=== PATIENT | female | born 1955 | race Caucasian/White ===

== ENCOUNTER 2017-07-01 10:00 | Day surgery (SDC) | payer BC, MEDICARE, OTHER ==
[~2017-07-01] VITALS: Ht 167.6 cm; Wt 97.0 kg
[2017-07-01 16:35] VITALS: BP 138/64; PULSE 104; RESP 15
[2017-07-01] MEDS ORDERED: PROPOFOL 20 ML ONE (16:54)
--- NOTE | 2017-07-01 17:15 | OPPN ---
Date/Time of Note Date/Time of Note DATE: 07/01/17 TIME: 17:11 Operative Report Preoperative Diagnosis GI bleeding and severe anemia Postoperative Diagnosis GI bleeding Severe anemia Melanotic stool Operation/Procedure Performed EGD with the biopsy Also small bowel biopsy 1. Gastritis 2. Rule out celiac sprue 3. AVM 1 in the second part of duodenum no evidence of bleeding Provider: SLIM SUTTON MD Anesthesia Type: MAC Transfusion Required: no Specimens Patient had a stomach biopsy for H. pylori infection Also had small bowel biopsy for celiac sprue Grafts/Implants: none Complications: no SLIM SUTTON MD Jul 01, 2017 17:15
[2017-07-01 17:36] VITALS: BP 147/65; PULSE 103; RESP 12
--- NOTE | 2017-07-01 22:53 | GILP ---
DATE OF PROCEDURE: 07/01/2017 PROCEDURE PERFORMED: Esophagogastroduodenoscopy with biopsy. INDICATION: A 62-year-old female undergoing this procedure for severe anemia, requiring blood transfusion. As per the daughter, she got almost 10 units of blood between . Patient also had a black-colored stool. The purpose is to evaluate the upper GI tract and find out the source of GI blood loss. The risk of the procedure, related complications, anesthetic risks, alternatives thoroughly discussed with the daughter, Maria Ines, and informed consent was obtained. DESCRIPTION OF PROCEDURE: Patient was brought to the GI lab, sedated by the anesthesiologist. After optimal sedation, scope was passed with much ease into the esophagus, which was grossly within normal limits. Z-line was at 37 cm. Stomach mucosa revealed gastritis. Random 3 biopsies obtained to rule out H. pylori infection. In the duodenum near the 2nd part there was an AVM identified. Ampulla was normal. No active bleeding or altered blood was seen. Scalloping of the mucosa was observed, so biopsy taken from the 2nd part and the bulb to rule out celiac sprue. Retroversion done in the stomach. No tumor was identified. Scope was straightened out and removed, with good patient tolerance. IMPRESSION: 1. Normal esophagus. 2. No varicose vein identified. 3. Normal Z-line at 37 cm. 4. Gastritis. Biopsy taken to rule out Helicobacter pylori infection. 5. 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 6. Biopsy taken from the duodenum to rule out celiac sprue. PLAN: Monitor H and H. Transfuse on a need basis. Refrain from any kind of blood thinner. If the bleeding is persistent, then definitely would need a colonoscopy. Patient may have AV malformation, either in the colon or in the small intestine. These findings were discussed with the daughter, Maria Ines. Dictated By: Ramón Ng MD /lorene/lu /Document#: [id number] CC: Ramón Ng MD;*[facility]*
== END 2017-07-01 18:53 | disposition home or self-care (01) ==
LOC: GIL 10:00
PROVIDERS: ATTEND Internal Medicine Gastroenterology
DX: K92.2 Gastrointestinal hemorrhage, unspecified (principal); K29.70 Gastritis, unspecified, without bleeding; I10 Essential (primary) hypertension; I25.10 Atherosclerotic heart disease of native coronary artery without angina pectoris; D64.9 Anemia, unspecified
CPT/HCPCS: 88305; 88312

== ENCOUNTER 2017-07-28 14:34 | Inpatient (IN) | payer MEDICARE, BC ==
[~2017-07-28] VITALS: Ht 152.4 cm; Wt 77.9 kg
[2017-07-28 14:36] VITALS: Ht 152.4 cm; Wt 77.9 kg
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
--- NOTE | 2017-07-28 15:43 | RADRPT ---
PROCEDURE: Chest x-ray CLINICAL INDICATION: Upper GI bleed TECHNIQUE: Chest single view COMPARISON: 06/11/2017 FINDINGS: Tracheostomy tube remains in good position. The heart is normal in size. There is interval clearing of previously noted right lower lobe pneumonia. Chronic underlying interstitial changes are seen. No new infiltrates are identified. Costophrenic angles sharp. Bones are osteopenic. IMPRESSION: 1. Tracheostomy tube remains in good position. 2. Interval clearing of right lower lung consolidation. 3. Chronic underlying interstitial lung changes. 4. No new infiltrates identified RPTAT: HH .Nathan Schrader MD, Date Time Electronically viewed and signed by .Nathan Schrader MD, on 07/28/2017 15:42 .W/
[2017-07-28 16:17] LABS: HEMATOCRIT 22.4 % (37.0-47.0); HEMOGLOBIN 7.3 g/dl (12.0-16.0); MEAN CORPUSCULAR VOLUME 88.9 fl (82.0-101.0); RED BLOOD COUNT 2.52 10^6/ul (4.20-5.40); WHITE BLOOD COUNT 10.1 10^3/ul (4.8-10.8)
[2017-07-28 16:18] LABS: BASOPHILS % 0.3 % (0.0-2.0); EOSINOPHILS # 0.4 10^3/ul (0.0-0.5); EOSINOPHILS % 3.8 % (0.0-7.0); LYMPHOCYTES # 1.3 10^3/ul (0.8-2.9); LYMPHOCYTES % 12.9 % (15.0-51.0); MEAN CORPUSCULAR HGB CONC 32.6 g/dl (32.0-37.0); MEAN PLATELET VOLUME 11.1 fl (7.4-10.4); MONOCYTES % 10.3 % (0.0-11.0); NEUTROPHIL # 7.1 10^3/ul (1.6-7.5); NEUTROPHILS % 70.7 % (39.0-77.0); PLATELET COUNT 286 10^3/UL (140-415); RED CELL DISTRIBUTION WIDTH 14.7 % (11.5-14.5)
[2017-07-28 16:32] LABS: INR 1.02; PROTIME 13.4 Sec (12.2-14.2)
[2017-07-28 16:37] LABS: ALBUMIN 3.8 g/dl (3.3-4.9); ALBUMIN/GLOBULIN RATIO 1.02; BILIRUBIN,INDIRECT 0.2 mg/dl (0-1.1); BILIRUBIN,TOTAL 0.2 mg/dl (0.2-1.3); CALCIUM 9.2 mg/dl (8.4-10.2); CREATININE 1.21 mg/dl (0.44-1.00); POTASSIUM 4.8 mmol/L (3.5-5.1); TOTAL PROTEIN 7.5 g/dl (6.1-8.1)
[2017-07-28] MEDS ORDERED: AMIO200T2 GTB (16:50)
[2017-07-28] MEDS ORDERED: ATOR20TA38 GTB (16:50)
[2017-07-28] MEDS ORDERED: CALC667C GTB (16:51)
[2017-07-28] MEDS ORDERED: HYDR2TAB36 GTB ×2 (16:53→16:54)
[2017-07-28] MEDS ORDERED: IPRA3AMP INHALATION (16:56)
[2017-07-28] MEDS ORDERED: L.AC460C GTB (16:57)
[2017-07-28] MEDS ORDERED: HYDR-3672 PO (16:59)
[2017-07-28] MEDS ORDERED: LOPE2CAP GTB (17:00)
[2017-07-28] MEDS ORDERED: FURO40TA4 GTB (17:01)
[2017-07-28] MEDS ORDERED: INSU100I27 SQ (17:01)
[2017-07-28] MEDS ORDERED: LYR75 GTB (17:02)
[2017-07-28] MEDS ORDERED: MULT-105 GTB (17:03)
[2017-07-28] MEDS ORDERED: CHLO473M4 MM (17:04)
[2017-07-28] MEDS ORDERED: LANS30CA GTB (17:05)
[2017-07-28] MEDS ORDERED: EPOE10002 IJ (17:06)
[2017-07-28] MEDS ORDERED: PROT946L GTB (17:13)
[2017-07-28] MEDS ORDERED: METO5TAB58 GTB (17:15)
[2017-07-28] MEDS ORDERED: LINA5TAB GTB (17:16)
[2017-07-28] MEDS ORDERED: ACET325S GTB (17:22)
[2017-07-28] MEDS ORDERED: ASCO500C7 GTB (17:23)
[2017-07-28] MEDS ORDERED: INSU100V3 IJ (19:44)
[2017-07-28 20:35] VITALS: TEMP 97.8
[2017-07-28 21:48] VITALS: PULSE 75
[2017-07-28] MEDS ORDERED: LOPERAMIDE 2 MG CAP GTB PRN (22:30)
[2017-07-28] MEDS ORDERED: GLUCOSE GEL 15 GRAM TUBE BUCCAL PRN (23:00)
[2017-07-28] MEDS ORDERED: GLUCAGON 1 MG INJ IM PRN (23:00)
[2017-07-28] MEDS ORDERED: GLUCOSE GEL 15 GRAM TUBE PO PRN ×2 (23:00)
[2017-07-28] MEDS ORDERED: DEXTROSE 50% 50 ML SYRINGE IV PRN ×2 (23:00)
[2017-07-28] MEDS: SOD CHLORIDE 0.9% 1,000 ML IV SCH (23:03)
[2017-07-28] MEDS: Insulin NOVOLOG SS MILD Algorithm (NPO/TPN/ENTERAL FEEDS) SC SCH (23:35)
[2017-07-28] MEDS: INSULIN DETEMIR [LEVEMIR] 3ML CART SC SCH (23:37)
[2017-07-28] MEDS: HYDROmorphONE 2 MG TAB GTB PRN (23:45)
[2017-07-29] VITALS (12 sets, daily range): BP systolic 126–158; BP diastolic 56–71; PULSE 80–90; RESP 18
[2017-07-29] MEDS ORDERED: ALBUTEROL/IPRATROPIUM (NEB) 3 ML AMP INH SCH
[2017-07-29] MEDS ORDERED: INSULIN ASPART [NOVOLOG] 3 ML PEN SC SCH ×2 (01:00)
[2017-07-29] MEDS ORDERED: ACCU-CHEK XX SCH (02:00)
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
[2017-07-29] MEDS: Insulin NOVOLOG SS MILD Algorithm (NPO/TPN/ENTERAL FEEDS) SC SCH ×3 (05:51→17:35)
[2017-07-29] MEDS: HYDROmorphONE 2 MG TAB GTB PRN ×2 (05:59→21:47)
[2017-07-29] MEDS ORDERED: PENDING SANTYL ORDER FOR WOUND CARE XX PRN (06:30)
[2017-07-29 07:29] LABS: BASOPHIL # 0.1 10^3/ul (0.0-0.1); BASOPHILS % 0.4 % (0.0-2.0); EOSINOPHILS # 0.4 10^3/ul (0.0-0.5); EOSINOPHILS % 3.5 % (0.0-7.0); HEMATOCRIT 29.9 % (37.0-47.0); HEMOGLOBIN 9.7 g/dl (12.0-16.0); LYMPHOCYTES # 1.2 10^3/ul (0.8-2.9); LYMPHOCYTES % 10.9 % (15.0-51.0); MEAN CORPUSCULAR HEMOGLOBIN 27.6 pg (29.0-33.0); MEAN CORPUSCULAR HGB CONC 32.4 g/dl (32.0-37.0); MEAN CORPUSCULAR VOLUME 85.2 fl (82.0-101.0); MEAN PLATELET VOLUME 11.3 fl (7.4-10.4); MONOCYTE # 1.1 10^3/ul (0.3-0.9); MONOCYTES % 9.4 % (0.0-11.0); NEUTROPHIL # 8.4 10^3/ul (1.6-7.5); NEUTROPHILS % 74.6 % (39.0-77.0); PLATELET COUNT 273 10^3/UL (140-415); RED BLOOD COUNT 3.51 10^6/ul (4.20-5.40); RED CELL DISTRIBUTION WIDTH 15.5 % (11.5-14.5); WHITE BLOOD COUNT 11.3 10^3/ul (4.8-10.8)
[2017-07-29] MEDS: ALBUTEROL/IPRATROPIUM (NEB) 3 ML AMP INH SCH ×3 (07:39→20:21)
[2017-07-29 07:49] LABS: CALCIUM 8.7 mg/dl (8.4-10.2); CREATININE 0.99 mg/dl (0.44-1.00); POTASSIUM 4.3 mmol/L (3.5-5.1)
[2017-07-29] MEDS ORDERED: ASCORBIC ACID 500 MG TAB GTB SCH (09:00)
[2017-07-29] MEDS ORDERED: NON-FORMULARY/PATIENT OWN MED (Protein Supplement (Promod) 30 ML) GTB SCH (09:00)
[2017-07-29] MEDS: PREGABALIN 75 MG CAP GTB SCH ×2 (09:04→20:38)
[2017-07-29] MEDS: CHLORHEXIDINE GLUCONATE 15 ML UD CUP MM SCH ×2 (09:05→20:38)
[2017-07-29] MEDS: AMIODARONE 200 MG TAB GTB SCH (09:05)
[2017-07-29] MEDS: MULTIVITAMINS 30 ML CUP GTB SCH (09:05)
[2017-07-29] MEDS: LANSOPRAZOLE 30 MG CAP GTB SCH (09:05)
[2017-07-29] MEDS: LINAGLIPTIN 5 MG TABLET GTB SCH (09:06)
[2017-07-29] MEDS: EPOETIN 10000 UNITS/ML VIAL (ONCOLOGY) SC SCH (09:07)
[2017-07-29] MEDS: INSULIN DETEMIR [LEVEMIR] 3ML CART SC SCH ×2 (11:24→22:00)
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
[2017-07-29] MEDS: SOD CHLORIDE 0.9% 1,000 ML IV SCH (12:57)
[2017-07-29] MEDS: ATORVASTATIN 20 MG TAB GTB SCH (20:38)
[2017-07-29] MEDS: ASCORBIC ACID 500 MG TAB GTB SCH (21:47)
[2017-07-29] MEDS: NYSTATIN 30 GM POWDER BTL TOP SCH (22:03)
[2017-07-30] VITALS (12 sets, daily range): BP systolic 129–176; BP diastolic 61–86; PULSE 80–97; RESP 16–22
[2017-07-30] MEDS: Insulin NOVOLOG SS MILD Algorithm (NPO/TPN/ENTERAL FEEDS) SC SCH ×4 (00:33→17:49)
[2017-07-30] MEDS: SOD CHLORIDE 0.9% 1,000 ML IV SCH ×2 (01:40→10:50)
[2017-07-30] MEDS: ALBUTEROL/IPRATROPIUM (NEB) 3 ML AMP INH SCH ×4 (02:58→20:50)
[2017-07-30] MEDS: HYDROmorphONE 2 MG TAB GTB PRN (05:12)
[2017-07-30] MEDS ORDERED: VITAMIN A & D 5 GM OINT PACKET TOP ONE (06:19)
[2017-07-30 06:57] LABS: RETICULOCYTE COUNT % 4.2 % (0.5-1.5)
[2017-07-30 06:58] LABS: BASOPHILS % 0.3 % (0.0-2.0); EOSINOPHILS # 0.3 10^3/ul (0.0-0.5); EOSINOPHILS % 2.6 % (0.0-7.0); HEMATOCRIT 29.6 % (37.0-47.0); HEMOGLOBIN 9.8 g/dl (12.0-16.0); LYMPHOCYTES # 0.9 10^3/ul (0.8-2.9); LYMPHOCYTES % 8.5 % (15.0-51.0); MEAN CORPUSCULAR HEMOGLOBIN 28.3 pg (29.0-33.0); MEAN CORPUSCULAR HGB CONC 33.1 g/dl (32.0-37.0); MEAN CORPUSCULAR VOLUME 85.5 fl (82.0-101.0); MEAN PLATELET VOLUME 10.7 fl (7.4-10.4); MONOCYTE # 1.1 10^3/ul (0.3-0.9); MONOCYTES % 9.9 % (0.0-11.0); NEUTROPHIL # 8.6 10^3/ul (1.6-7.5); NEUTROPHILS % 77.3 % (39.0-77.0); PLATELET COUNT 241 10^3/UL (140-415); RED BLOOD COUNT 3.46 10^6/ul (4.20-5.40); RED CELL DISTRIBUTION WIDTH 15.1 % (11.5-14.5); WHITE BLOOD COUNT 11.1 10^3/ul (4.8-10.8)
[2017-07-30 07:17] LABS: CALCIUM 9.1 mg/dl (8.4-10.2); CREATININE 0.91 mg/dl (0.44-1.00); POTASSIUM 3.9 mmol/L (3.5-5.1)
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
[2017-07-30 08:24] LABS: FOLATE > 20.0 ng/ml (2.8-20.0)
[2017-07-30] MEDS: EPOETIN 10000 UNITS/ML VIAL (ONCOLOGY) SC SCH (09:00)
[2017-07-30] MEDS: LINAGLIPTIN 5 MG TABLET GTB SCH (09:09)
[2017-07-30] MEDS: PREGABALIN 75 MG CAP GTB SCH ×2 (09:09→20:39)
[2017-07-30] MEDS: LANSOPRAZOLE 30 MG CAP GTB SCH (09:09)
[2017-07-30] MEDS: AMIODARONE 200 MG TAB GTB SCH (09:09)
[2017-07-30] MEDS: COLLAGENASE 30 GM TUBE TOP SCH (09:09)
[2017-07-30] MEDS: ASCORBIC ACID 500 MG TAB GTB SCH ×2 (09:09→20:39)
[2017-07-30] MEDS: NYSTATIN 30 GM POWDER BTL TOP SCH ×2 (09:10→20:39)
[2017-07-30] MEDS: CHLORHEXIDINE GLUCONATE 15 ML UD CUP MM SCH ×2 (09:10→20:39)
[2017-07-30] MEDS: MULTIVITAMINS 30 ML CUP GTB SCH (09:10)
[2017-07-30] MEDS: INSULIN DETEMIR [LEVEMIR] 3ML CART SC SCH ×2 (10:49→22:40)
[2017-07-30] MEDS ORDERED: BISACODYL (EC) 5 MG TAB PO ONE ×2 (12:00→20:00)
[2017-07-30] MEDS ORDERED: PEG/ELECTROLYTES 4L BTL PO ONE ×2 (14:00→18:00)
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
[2017-07-30] MEDS: ATORVASTATIN 20 MG TAB GTB SCH (20:39)
[2017-07-31] VITALS (19 sets, daily range): BP systolic 152–181; BP diastolic 68–92; PULSE 79–99; RESP 10–20
[2017-07-31] MEDS: ALBUTEROL/IPRATROPIUM (NEB) 3 ML AMP INH SCH ×4 (03:03→19:27)
[2017-07-31] MEDS: SOD CHLORIDE 0.9% 1,000 ML IV SCH ×2 (04:20→17:27)
[2017-07-31] MEDS: Insulin NOVOLOG SS MILD Algorithm (NPO/TPN/ENTERAL FEEDS) SC SCH ×4 (06:00→17:26)
[2017-07-31] MEDS ORDERED: VITAMIN A & D 5 GM OINT PACKET TOP ONE (06:09)
[2017-07-31] MEDS: HYDROmorphONE 2 MG TAB GTB PRN (06:17)
[2017-07-31 06:37] LABS: HEMOGLOBIN 9.8 g/dl (12.0-16.0); RED BLOOD COUNT 3.55 10^6/ul (4.20-5.40); WHITE BLOOD COUNT 12.1 10^3/ul (4.8-10.8)
[2017-07-31 06:38] LABS: BASOPHILS % 0.3 % (0.0-2.0); EOSINOPHILS # 0.4 10^3/ul (0.0-0.5); EOSINOPHILS % 3.2 % (0.0-7.0); HEMATOCRIT 30.4 % (37.0-47.0); LYMPHOCYTES # 1.1 10^3/ul (0.8-2.9); LYMPHOCYTES % 9.1 % (15.0-51.0); MEAN CORPUSCULAR HEMOGLOBIN 27.6 pg (29.0-33.0); MEAN CORPUSCULAR HGB CONC 32.2 g/dl (32.0-37.0); MEAN CORPUSCULAR VOLUME 85.6 fl (82.0-101.0); MEAN PLATELET VOLUME 10.8 fl (7.4-10.4); MONOCYTE # 1.1 10^3/ul (0.3-0.9); MONOCYTES % 8.7 % (0.0-11.0); NEUTROPHIL # 9.4 10^3/ul (1.6-7.5); PLATELET COUNT 240 10^3/UL (140-415); RED CELL DISTRIBUTION WIDTH 14.9 % (11.5-14.5)
[2017-07-31 07:13] LABS: CALCIUM 8.8 mg/dl (8.4-10.2); CREATININE 0.73 mg/dl (0.44-1.00); POTASSIUM 3.9 mmol/L (3.5-5.1)
[2017-07-31] MEDS: MULTIVITAMINS 30 ML CUP GTB SCH (08:46)
[2017-07-31] MEDS: AMIODARONE 200 MG TAB GTB SCH (08:46)
[2017-07-31] MEDS: CHLORHEXIDINE GLUCONATE 15 ML UD CUP MM SCH ×2 (08:46→22:03)
[2017-07-31] MEDS: LANSOPRAZOLE 30 MG CAP GTB SCH (08:46)
[2017-07-31] MEDS: EPOETIN 10000 UNITS/ML VIAL (ONCOLOGY) SC SCH (08:46)
[2017-07-31] MEDS: PREGABALIN 75 MG CAP GTB SCH ×2 (08:46→22:04)
[2017-07-31] MEDS: LINAGLIPTIN 5 MG TABLET GTB SCH (08:47)
[2017-07-31] MEDS: ASCORBIC ACID 500 MG TAB GTB SCH ×2 (08:47→22:04)
[2017-07-31] MEDS: NYSTATIN 30 GM POWDER BTL TOP SCH ×2 (08:47→22:04)
[2017-07-31] MEDS: COLLAGENASE 30 GM TUBE TOP SCH (08:47)
[2017-07-31] MEDS: INSULIN DETEMIR [LEVEMIR] 3ML CART SC SCH ×2 (10:04→22:23)
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
--- NOTE | 2017-07-31 14:17 | OPPN ---
Date/Time of Note Date/Time of Note DATE: 07/31/17 TIME: 14:16 Proc Note GI Procedure Date 07/31/17 Indication: diagnostic Pre-procedure Diagnosis Anemia due to GI blood loss Post-procedure Diagnosis Normal: Colonoscopy Procedure Performed: Colonoscopy Surgeon see signature line Bobbin Coil Winder none Anesthesia Type: MAC Tourniquet Time none EBL none Transfusion required none Biopsy 1: None Grafts/Implants none Tubes/Drains none Complication(s) none Disposition: PACU Procedure Description See dictated notes SLIM SUTTON MD Jul 31, 2017 14:17
[2017-07-31] MEDS ORDERED: LIDOCAINE 100 MG SYRINGE ONE (14:23)
[2017-07-31] MEDS ORDERED: PROPOFOL 20 ML ONE (14:23)
--- NOTE | 2017-07-31 14:52 | GILP ---
DATE OF PROCEDURE: 07/31/2017 INDICATION: A 62-year-old female undergoing this procedure for iron deficiency anemia requiring blo od transfusion. 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 The purpose is to rule out AVM in the rest of the colon. The risks of the procedure, related and unrelated complications, anesthetic risks, alte rnatives discussed and informed consent was obtained. DESCRIPTION OF PROCEDURE: The patient was brought to the GI lab, sedated by Dr. Peñaloza. After opti mum sedation, the scope was passed with much ease into rectum, advanced through sigmoid, descending, transverse colon all the way into the cecum. Clarity was good. Cleanliness was good. Appendiceal orifice identified. The rest of the colon appeared normal which was thoroughly inspected while com ing out. IMPRESSION: 1. Normal findings all the way into the cecum. 2. Clarity and cleanliness was good. PLAN: Continue present care. We will place the patient on intravenous iron and p.o. iron. If she rebleeds or if she becomes anemic in the future, she will need a capsule endoscopy. Dictated By: SLIM EAST/DASHAWN Conf#: [id number] DID#: [id number]
[2017-07-31] MEDS ORDERED: LABETALOL HCL 20MG INJ IV PRN (15:00)
[2017-07-31] MEDS ORDERED: ONDANSETRON 4 MG INJ IV PRN (15:00)
[2017-07-31] MEDS ORDERED: ATROPINE 0.4 MG IV PRN (15:00)
[2017-07-31] MEDS ORDERED: hydrALAzine 20 MG INJ IV PRN (15:00)
--- NOTE | 2017-07-31 19:04 | CONS ---
Date/Time of Note Date/Time of Note DATE: 07/31/17 TIME: 19:03 Assessment/Plan Assessment/Plan Problems: (1) Onychomycosis (2) Diabetes, polyneuropathy (3) Peripheral vascular disease (4) Gangrene of left foot (5) Gangrene of right foot (6) GI bleed Status: Acute (7) Status post transmetatarsal amputation of right foot Additional Assessment/Plan Patient has compromised circulation of the lower extremities. Because of this she has developed gangrenous changes and necrosis on both feet and ankles. At this time, patient is not amenable to any surgical management because this would exacerbate her condition. Patient is under care of vascular surgery and infectious disease. Betadine is to be applied to both feet and web spaces and feet are to be elevated so that the heel is touching air. Patient will be followed in-house. I will discuss my findings with vascular surgery and will determine best course of action. The goal is to preserve and salvage the lower extremity as best as possible without compromising patient's health/life. Her condition is severe and prognosis is poor. Thank you again for involving me in the care of this patient. If you have any questions regarding this case, please feel free to contact me at pager: or reach me at mobile: [phone]. Consultation Date/Type/Reason Admit Date/Time Jul 28, 2017 at 17:22 Date of Consultation: Jul 31, 2017 Type of Consultation: Foot and ankle surgery Reason for Consultation Gangrenous changes to both feet Hx of Present Illness Thank you very much for involving me in the care of this patient. As you very well know this is a 62-year-old female patient with multiple medical problems including diabetes mellitus, peripheral vascular disease, hypertension, acute kidney injury, dyslipidemia, anemia of chronic disease, with multiple gangrenous changes on both feet. I was consulted for evaluation and treatment. Patient resides at [facility] respiratory unit and was found to have hemoglobin of 7.1. Patient was brought to the hospital for evaluation. Patient has been admitted to the telemetry floor. Past Medical History As per history of present illness. Past Surgical History As per history of present illness. Social History As per history of present illness. Smoking Status: Former smoker Exam/Review of Systems Vital Signs Vitals Vital Signs Date Time Temp Pulse Resp B/P Pulse Ox O2 Delivery O2 Flow Rate FiO2 07/31/17 16:12 90 07/31/17 15:10 98.2 18 173/92 100 07/31/17 14:54 Nasal Cannula 2.0 Intake and Output 07/30/17 07/30/17 07/31/17 15:00 23:00 07:00 Intake Total 1550 ml 1075 ml Output Total 1450 ml 1500 ml Balance 100 ml -425 ml Exam GENERAL: Patient is in no acute distress laying supine VASC: non palpable pedal pulses with sig delayed CFT and increased TG NEURO: decreased sensation b/l LEs DERM: Multiple gangrenous lesions noted on both feet. There is no pus noted and no bleeding. Dry skin present throughout the lower extremities ORTHO: Contracted toes on both feet IMAGING: reviewed LABS: reviewed Results Result Diagram: 07/31/17 0600 07/31/17 0600 Results 24 hrs Laboratory Tests Test 07/30/17 22:36 07/31/17 00:12 07/31/17 06:00 07/31/17 06:13 Bedside Glucose 133 129 83 White Blood Count 12.1 H Red Blood Count 3.55 L Hemoglobin 9.8 L Hematocrit 30.4 L Mean Corpuscular Volume 85.6 Mean Corpuscular Hemoglobin 27.6 L Mean Corpuscular Hemoglobin Concent 32.2 Red Cell Distribution Width 14.9 H Platelet Count 240 Mean Platelet Volume 10.8 H Neutrophils % 78.0 H Lymphocytes % 9.1 L Monocytes % 8.7 Eosinophils % 3.2 Basophils % 0.3 Nucleated Red Blood Cells % 0.0 Neutrophils # 9.4 H Lymphocytes # 1.1 Monocytes # 1.1 H Eosinophils # 0.4 Basophils # 0.0 Nucleated Red Blood Cells # 0.0 Sodium Level 143 Potassium Level 3.9 Chloride Level 109 Carbon Dioxide Level 28 Anion Gap 10 Blood Urea Nitrogen 23 #H Creatinine 0.73 Glucose Level 69 #L Calcium Level 8.8 Test 07/31/17 12:03 07/31/17 17:25 Bedside Glucose 96 112 Medications Medications Current Medications Acetaminophen (Tylenol Liquid) 650 mg Q6H PRN GTB MILD PAIN LEVEL 1-3; Start 07/28/17 at 22:30 Amiodarone HCl (Cordarone) 200 mg DAILY GTB Last administered on 07/30/17t 09: 09; Admin Dose 200 MG; Start 07/29/17 at 09:00 Atorvastatin Calcium (Lipitor) 20 mg QHS GTB Last administered on 07/30/17 20 :39; Admin Dose 20 MG; Start 07/29/17 at 21:00 Chlorhexidine Gluconate (Peridex) 15 ml BID MM Last administered on 07/31/17 08:46; Admin Dose 15 ML; Start 07/29/17 at 09:00 Epoetin Baudilio (Epogen (Oncology)) 10,000 units AM SC Last administered on 09:07; Admin Dose 10,000 UNITS; Start 07/29/17 at 09:00 Hydralazine HCl (Apresoline) 50 mg Q8 PO Last administered on 07/31/17 06:14 ; Admin Dose 50 MG; Start 07/29/17 at 06:00 Hydromorphone HCl (Dilaudid) 1 mg Q3H PRN GTB PAIN 4-07/28 Last administered on 07/30/17 05:12; Admin Dose 1 MG; Start 07/28/17 at 22:30 Hydromorphone HCl (Dilaudid) 2 mg DAILY PRN GTB PAIN Last administered on 07/31 06:17; Admin Dose 2 MG; Start 07/28/17 at 22:30 Insulin Detemir (Levemir) 30 unit Q12H SC Last administered on 07/30/17 22:40 ; Admin Dose 30 UNIT; Start 07/28/17 at 22:30 Lansoprazole (Prevacid) 30 mg DAILY GTB Last administered on 07/30/17 09:09; Admin Dose 30 MG; Start 07/29/17 at 09:00 Linagliptin (Tradjenta) 5 mg DAILY GTB Last administered on 07/30/17 09:09; Admin Dose 5 MG; Start 07/29/17 at 09:00 Loperamide HCl (Imodium Cap) 2 mg Q4H PRN GTB DIARRHEA; Start 07/28/17 at 22: 30 Pregabalin (Lyrica) 75 mg BID GTB Last administered on 07/30/17 20:39; Admin Dose 75 MG; Start 07/29/17 at 09:00 Multivitamins 30 ml 30 ml DAILY GTB Last administered on 07/30/17 09:10; Admin Dose 30 ML; Start 07/29/17 at 09:00 Sodium Chloride (NS) 1,000 ml @ 75 mls/hr [id number] IV Last administered on 17:27; Admin Dose 75 MLS/HR; Start 07/28/17 at 23:00 Insulin Aspart (Novolog Insulin Pen) (Adult SC Insulin - Mild Algorithm)... Q6 SC Last administered on 07/30/17 17:49; Admin Dose 2 UNIT; Start 07/29/17 at 00:00 Miscellaneous Information 1 ea NOTE XX ; Start 07/28/17 at 23:00 Glucose (Glutose) 15 gm Q15M PRN PO DECREASED GLUCOSE; Start 07/28/17 at 23:00 Glucose (Glutose) 22.5 gm Q15M PRN PO DECREASED GLUCOSE; Start 07/28/17 at 23: 00 Dextrose (D50w Syringe) 25 ml Q15M PRN IV DECREASED GLUCOSE; Start 07/28/17 at 23:00 Dextrose (D50w Syringe) 50 ml Q15M PRN IV DECREASED GLUCOSE; Start 07/28/17 at 23:00 Glucagon (Glucagen) 1 mg Q15M PRN IM DECREASED GLUCOSE; Start 07/28/17 at 23: 00 Glucose (Glutose) 15 gm Q15M PRN BUCCAL DECREASED GLUCOSE; Start 07/28/17 at 23:00 Miscellaneous Information (Pending Santyl Order For Wound Care) This patient alonzo... PRN PRN XX WOUND CARE; Start 07/29/17 at 06:30 Ascorbic Acid (Vitamin C) 500 mg BID GTB Last administered on 07/30/17 20:39 ; Admin Dose 500 MG; Start 07/29/17 at 21:30 Collagenase (Santyl) 1 applic DAILY TOP Last administered on 07/31/17 08:47; Admin Dose 1 APPLIC; Start 07/30/17 at 09:00 Nystatin (Nystatin Powder) 1 applic BID TOP Last administered on 07/31/17 08: 47; Admin Dose 1 APPLIC; Start 07/29/17 at 22:30 EMILY FISHMAN DPM Jul 31, 2017 19:03
[2017-07-31] MEDS: ATORVASTATIN 20 MG TAB GTB SCH (22:03)
[2017-08-01] VITALS (14 sets, daily range): BP systolic 140–180; BP diastolic 65–86; PULSE 87–99; RESP 18–20
[2017-08-01] MEDS: Insulin NOVOLOG SS MILD Algorithm (NPO/TPN/ENTERAL FEEDS) SC SCH ×4 (00:46→17:57)
[2017-08-01] MEDS: ALBUTEROL/IPRATROPIUM (NEB) 3 ML AMP INH SCH ×4 (01:39→20:48)
[2017-08-01] MEDS: HYDROmorphONE 2 MG TAB GTB PRN ×2 (04:49→14:48)
[2017-08-01] MEDS: SOD CHLORIDE 0.9% 1,000 ML IV SCH ×2 (05:21→20:53)
[2017-08-01 06:37] LABS: BASOPHIL # 0.1 10^3/ul (0.0-0.1); BASOPHILS % 0.6 % (0.0-2.0); EOSINOPHILS # 0.3 10^3/ul (0.0-0.5); EOSINOPHILS % 2.8 % (0.0-7.0); HEMATOCRIT 30.6 % (37.0-47.0); HEMOGLOBIN 9.7 g/dl (12.0-16.0); LYMPHOCYTES % 9.1 % (15.0-51.0); MEAN CORPUSCULAR HEMOGLOBIN 27.6 pg (29.0-33.0); MEAN CORPUSCULAR HGB CONC 31.7 g/dl (32.0-37.0); MEAN CORPUSCULAR VOLUME 86.9 fl (82.0-101.0); MEAN PLATELET VOLUME 10.8 fl (7.4-10.4); MONOCYTES % 9.6 % (0.0-11.0); NEUTROPHIL # 8.1 10^3/ul (1.6-7.5); NEUTROPHILS % 77.1 % (39.0-77.0); PLATELET COUNT 229 10^3/UL (140-415); RED BLOOD COUNT 3.52 10^6/ul (4.20-5.40); RED CELL DISTRIBUTION WIDTH 15.1 % (11.5-14.5); WHITE BLOOD COUNT 10.5 10^3/ul (4.8-10.8)
[2017-08-01 07:12] LABS: CALCIUM 8.6 mg/dl (8.4-10.2); CREATININE 0.69 mg/dl (0.44-1.00); POTASSIUM 3.9 mmol/L (3.5-5.1)
[2017-08-01] MEDS: CHLORHEXIDINE GLUCONATE 15 ML UD CUP MM SCH ×2 (08:57→20:54)
[2017-08-01] MEDS: PREGABALIN 75 MG CAP GTB SCH ×2 (08:57→20:54)
[2017-08-01] MEDS: MULTIVITAMINS 30 ML CUP GTB SCH (08:57)
[2017-08-01] MEDS: LANSOPRAZOLE 30 MG CAP GTB SCH (08:58)
[2017-08-01] MEDS: LINAGLIPTIN 5 MG TABLET GTB SCH (08:58)
[2017-08-01] MEDS: AMIODARONE 200 MG TAB GTB SCH (08:59)
[2017-08-01] MEDS: ASCORBIC ACID 500 MG TAB GTB SCH ×2 (08:59→20:54)
[2017-08-01] MEDS: EPOETIN 10000 UNITS/ML VIAL (ONCOLOGY) SC SCH (09:00)
[2017-08-01] MEDS: COLLAGENASE 30 GM TUBE TOP SCH (09:02)
[2017-08-01] MEDS: NYSTATIN 30 GM POWDER BTL TOP SCH ×2 (09:02→20:54)
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
[2017-08-01] MEDS: INSULIN DETEMIR [LEVEMIR] 3ML CART SC SCH (11:24)
--- NOTE | 2017-08-01 15:26 | CONS ---
Date/Time of Note Date/Time of Note DATE: 08/01/17 TIME: 15:25 Assessment/Plan Assessment/Plan Additional Assessment/Plan IMPRESSION: 1. 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 2. Chronic disease is a contributing factor. 3. Kidney injury. 4. History of stroke with a burn over the lower extremities. 5. Hypertension. 6. Dyslipidemia. 7. Diabetes mellitus. Plan Continue present care Ferrous sulfate Consultation Date/Type/Reason Admit Date/Time Jul 28, 2017 at 17:22 Initial Consult Date 24 HR Interval Summary Constitutional: improved, no complaints Exam/Review of Systems Vital Signs Vitals Vital Signs Date Time Temp Pulse Resp B/P Pulse Ox O2 Delivery O2 Flow Rate FiO2 08/01/17 12:37 90 08/01/17 11:39 98.0 18 156/70 99 08/01/17 08:17 1.0 08/01/17 08:17 Nasal Cannula 08/01/17 01:40 24 Intake and Output 07/31/17 07/31/17 08/01/17 15:00 23:00 07:00 Intake Total 1500 ml 1925 ml Output Total 1600 ml 650 ml Balance -100 ml 1275 ml Exam Constitutional: alert, oriented, well developed Psych: nl mood/affect, no complaints Head: atraumatic, normocephalic Eyes: EOMI, PERRL, nl conjunctiva, nl lids, nl sclera ENMT: nl external ears & nose, nl lips & teeth, nl nasal mucosa & septum Neck: non-tender, supple Respiratory: clear to auscultation, normal air movement Cardiovascular: nl pulses, regular rate and rhythm Gastrointestinal: nl liver, spleen, non-tender, soft Musculoskeletal: nl extremities to inspection, nl gait and stance Extremities: normal pulses 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: STEAM BOX OPERATOR II-XII intact, nl mental status, nl speech, nl strength Skin: nl turgor, No rash or lesions Lymph: nl lymph nodes Results Result Diagram: 08/01/17 0559 08/01/17 0559 Results 24 hrs Laboratory Tests Test 07/31/17 17:25 07/31/17 22:13 08/01/17 00:19 08/01/17 05:46 Bedside Glucose 112 177 164 Lab Scanned Report BLOOD TRANSFUSION Test 08/01/17 05:58 08/01/17 05:59 08/01/17 11:11 Bedside Glucose 162 171 White Blood Count 10.5 Red Blood Count 3.52 L Hemoglobin 9.7 L Hematocrit 30.6 L Mean Corpuscular Volume 86.9 Mean Corpuscular Hemoglobin 27.6 L Mean Corpuscular Hemoglobin Concent 31.7 L Red Cell Distribution Width 15.1 H Platelet Count 229 Mean Platelet Volume 10.8 H Neutrophils % 77.1 H Lymphocytes % 9.1 L Monocytes % 9.6 Eosinophils % 2.8 Basophils % 0.6 Nucleated Red Blood Cells % 0.0 Neutrophils # 8.1 H Lymphocytes # 1.0 Monocytes # 1.0 H Eosinophils # 0.3 Basophils # 0.1 Nucleated Red Blood Cells # 0.0 Sodium Level 136 Potassium Level 3.9 Chloride Level 112 H Carbon Dioxide Level 26 Anion Gap 2 #L Blood Urea Nitrogen 17 Creatinine 0.69 Glucose Level 155 Calcium Level 8.6 Medications Medications Current Medications Acetaminophen (Tylenol Liquid) 650 mg Q6H PRN GTB MILD PAIN LEVEL 1-3; Start 07/28/17 at 22:30 Amiodarone HCl (Cordarone) 200 mg DAILY GTB Last administered on 08/01/17 08: 59; Admin Dose 200 MG; Start 07/29/17 at 09:00 Atorvastatin Calcium (Lipitor) 20 mg QHS GTB Last administered on 07/31/17 22 :03; Admin Dose 20 MG; Start 07/29/17 at 21:00 Chlorhexidine Gluconate (Peridex) 15 ml BID MM Last administered on 08/01/17 08:57; Admin Dose 15 ML; Start 07/29/17 at 09:00 Epoetin Baudilio (Epogen (Oncology)) 10,000 units AM SC Last administered on 09:00; Admin Dose 10,000 UNITS; Start 07/29/17 at 09:00 Hydralazine HCl (Apresoline) 50 mg Q8 PO Last administered on 08/01/17 14:38 ; Admin Dose 50 MG; Start 07/29/17 at 06:00 Hydromorphone HCl (Dilaudid) 1 mg Q3H PRN GTB PAIN 4-10 Last administered on 08/01/17 14:48; Admin Dose 1 MG; Start 07/28/17 at 22:30 Hydromorphone HCl (Dilaudid) 2 mg DAILY PRN GTB PAIN Last administered on 07/31 06:17; Admin Dose 2 MG; Start 07/28/17 at 22:30 Insulin Detemir (Levemir) 30 unit Q12H SC Last administered on 08/01/17 11:24 ; Admin Dose 30 UNIT; Start 07/28/17 at 22:30 Lansoprazole (Prevacid) 30 mg DAILY GTB Last administered on 08/01/17 08:58; Admin Dose 30 MG; Start 07/29/17 at 09:00 Linagliptin (Tradjenta) 5 mg DAILY GTB Last administered on 08/01/17 08:58; Admin Dose 5 MG; Start 07/29/17 at 09:00 Loperamide HCl (Imodium Cap) 2 mg Q4H PRN GTB DIARRHEA; Start 07/28/17 at 22: 30 Pregabalin (Lyrica) 75 mg BID GTB Last administered on 08/01/17 08:57; Admin Dose 75 MG; Start 07/29/17 at 09:00 Multivitamins 30 ml 30 ml DAILY GTB Last administered on 08/01/17 08:57; Admin Dose 30 ML; Start 07/29/17 at 09:00 Sodium Chloride (NS) 1,000 ml @ 75 mls/hr [id number] IV Last administered on 05:21; Admin Dose 75 MLS/HR; Start 07/28/17 at 23:00 Insulin Aspart (Novolog Insulin Pen) (Adult SC Insulin - Mild Algorithm)... Q6 SC Last administered on 08/01/17 11:24; Admin Dose 1 UNIT; Start 07/29/17 at 00:00 Miscellaneous Information 1 ea NOTE XX ; Start 07/28/17 at 23:00 Glucose (Glutose) 15 gm Q15M PRN PO DECREASED GLUCOSE; Start 07/28/17 at 23:00 Glucose (Glutose) 22.5 gm Q15M PRN PO DECREASED GLUCOSE; Start 07/28/17 at 23: 00 Dextrose (D50w Syringe) 25 ml Q15M PRN IV DECREASED GLUCOSE; Start 07/28/17 at 23:00 Dextrose (D50w Syringe) 50 ml Q15M PRN IV DECREASED GLUCOSE; Start 07/28/17 at 23:00 Glucagon (Glucagen) 1 mg Q15M PRN IM DECREASED GLUCOSE; Start 07/28/17 at 23: 00 Glucose (Glutose) 15 gm Q15M PRN BUCCAL DECREASED GLUCOSE; Start 07/28/17 at 23:00 Miscellaneous Information (Pending Santyl Order For Wound Care) This patient alonzo... PRN PRN XX WOUND CARE; Start 07/29/17 at 06:30 Ascorbic Acid (Vitamin C) 500 mg BID GTB Last administered on 08/01/17 08:59 ; Admin Dose 500 MG; Start 07/29/17 at 21:30 Collagenase (Santyl) 1 applic DAILY TOP Last administered on 08/01/17 09:02; Admin Dose 1 APPLIC; Start 07/30/17 at 09:00 Nystatin (Nystatin Powder) 1 applic BID TOP Last administered on 08/01/17 09: 02; Admin Dose 1 APPLIC; Start 07/29/17 at 22:30 SLIM SUTTON MD Aug 01, 2017 15:25
[2017-08-01] MEDS: ATORVASTATIN 20 MG TAB GTB SCH (20:54)
[2017-08-02] VITALS (13 sets, daily range): BP systolic 123–171; BP diastolic 60–76; PULSE 79–98; RESP 18
[2017-08-02] MEDS: Insulin NOVOLOG SS MILD Algorithm (NPO/TPN/ENTERAL FEEDS) SC SCH ×5 (00:13→23:20)
[2017-08-02] MEDS: INSULIN DETEMIR [LEVEMIR] 3ML CART SC SCH ×3 (00:13→23:21)
[2017-08-02] MEDS: ALBUTEROL/IPRATROPIUM (NEB) 3 ML AMP INH SCH ×4 (01:00→20:03)
[2017-08-02] MEDS: HYDROmorphONE 2 MG TAB GTB PRN ×3 (02:06→23:43)
[2017-08-02] MEDS: PREGABALIN 75 MG CAP GTB SCH ×2 (08:11→21:00)
[2017-08-02] MEDS: LINAGLIPTIN 5 MG TABLET GTB SCH (08:12)
[2017-08-02] MEDS: MULTIVITAMINS 30 ML CUP GTB SCH (08:12)
[2017-08-02] MEDS: AMIODARONE 200 MG TAB GTB SCH (08:12)
[2017-08-02] MEDS: LANSOPRAZOLE 30 MG CAP GTB SCH (08:12)
[2017-08-02] MEDS: CHLORHEXIDINE GLUCONATE 15 ML UD CUP MM SCH ×2 (08:12→21:00)
[2017-08-02] MEDS: ASCORBIC ACID 500 MG TAB GTB SCH ×2 (08:12→21:00)
[2017-08-02] MEDS: COLLAGENASE 30 GM TUBE TOP SCH ×2 (08:13→09:42)
[2017-08-02] MEDS: NYSTATIN 30 GM POWDER BTL TOP SCH ×2 (08:14→21:01)
[2017-08-02] MEDS: SOD CHLORIDE 0.9% 1,000 ML IV SCH ×2 (11:39→23:05)
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
[2017-08-02] MEDS: ATORVASTATIN 20 MG TAB GTB SCH (21:00)
[2017-08-03] VITALS (14 sets, daily range): BP systolic 139–186; BP diastolic 65–78; PULSE 90–101; RESP 16–20
[2017-08-03] MEDS: ALBUTEROL/IPRATROPIUM (NEB) 3 ML AMP INH SCH ×4 (01:51→21:02)
[2017-08-03] MEDS: Insulin NOVOLOG SS MILD Algorithm (NPO/TPN/ENTERAL FEEDS) SC SCH ×4 (05:20→23:08)
[2017-08-03] MEDS: PREGABALIN 75 MG CAP GTB SCH ×2 (08:42→19:53)
[2017-08-03] MEDS: LANSOPRAZOLE 30 MG CAP GTB SCH (08:42)
[2017-08-03] MEDS: ASCORBIC ACID 500 MG TAB GTB SCH ×2 (08:43→19:54)
[2017-08-03] MEDS: NYSTATIN 30 GM POWDER BTL TOP SCH ×2 (08:43→19:53)
[2017-08-03] MEDS: COLLAGENASE 30 GM TUBE TOP SCH (08:43)
[2017-08-03] MEDS: AMIODARONE 200 MG TAB GTB SCH (08:43)
[2017-08-03] MEDS: CHLORHEXIDINE GLUCONATE 15 ML UD CUP MM SCH ×2 (08:43→19:53)
[2017-08-03] MEDS: MULTIVITAMINS 30 ML CUP GTB SCH (08:43)
[2017-08-03] MEDS: LINAGLIPTIN 5 MG TABLET GTB SCH (08:44)
[2017-08-03] MEDS: INSULIN DETEMIR [LEVEMIR] 3ML CART SC SCH ×2 (11:02→23:07)
[2017-08-03] MEDS: hydrALAzine 20 MG INJ IV PRN (11:59)
[2017-08-03] MEDS: SOD CHLORIDE 0.9% 1,000 ML IV SCH (11:59)
--- NOTE | 2017-08-03 13:07 | RADRPT ---
PROCEDURE: US Lower extremity arterial. CLINICAL INDICATION: Bilateral lower extremity pain. Claudication. Left toes indicated secondary g angrene. TECHNIQUE: Multiple sonographic images of the bilateral lower extremity arteries were obtained uti lizing hannah scale, color-flow and doppler imaging. Bilateral PATTI performed. COMPARISON: 06/26/2017 FINDINGS: Diffuse atherosclerotic plaque. Velocities and waveforms were obtained as described below. RIGHT LEG: Right common femoral artery: 119 cm/s; triphasic waveforms Right deep femoral artery: 331 cm/s; triphasic waveforms, high-grade stenosis on hannah scale. Right proximal superficial femoral artery: No flow Right mid superficial femoral artery: No flow Right distal superficial femoral artery: 13 cm/s; monophasic waveforms Right popliteal artery: 30 cm/s; monophasic waveforms Right posterior tibial artery: 29 cm/s; monophasic waveforms Right dorsalis pedis artery: 7 cm/s; monophasic waveforms Right PATTI equals 0.45 LEFT LEG: Left proximal common femoral artery: 175 cm/s; triphasic waveforms Left common femoral artery: 314 cm/s; triphasic waveforms, high-grade stenosis on hannah scale. Left deep femoral artery: 200 cm/s, biphasic wave forms Left proximal superficial femoral artery: 98 cm/s; monophasic waveforms Left mid superficial femoral artery: 102 cm/s; monophasic waveforms Left distal superficial femoral artery: 38 cm/s; monophasic waveforms Left popliteal artery: 76 cm/s; monophasic waveforms Left posterior tibial artery: 33 cm/s; monophasic waveforms Left dorsalis pedis artery: No flow Left PATTI equals 0.5 IMPRESSION: 1. 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 2. Severe focal stenosis of the proximal right deep femoral artery. 3. Severe focal stenosis of the left common femoral artery with monophasic wave forms distally. 4. No flow in the left dorsalis pedis artery. RPTAT:AAJJ Physician Allan Date Time Electronically viewed and signed by Physician Allan on 08/03/2017 13:07 /
[2017-08-03] MEDS: HYDROmorphONE 2 MG TAB GTB PRN (13:50)
[2017-08-03] MEDS: ONDANSETRON 4 MG INJ IV PRN (14:42)
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
--- NOTE | 2017-08-03 18:25 | PN ---
Date/Time of Note Date/Time of Note DATE: 08/03/17 TIME: 18:24 Assessment/Plan Lines/Catheters IV Catheter Type (from Nrsg): Peripheral IV Salazar in Place (from Nrsg): Yes Assessment/Plan Problems: (1) Gangrene of right foot (2) Gangrene of left foot (3) Status post transmetatarsal amputation of right foot (4) Peripheral vascular disease (5) Diabetes, polyneuropathy Assessment/Plan Continue pain both feet with Betadine. Right foot dressing change to continue. No surgery recommended at this time. Patient will be monitored in-house. Subjective 24 Hr Interval Summary Patient was seen at bedside. Patient is in no acute distress. Patient reports no new adverse events. Patient denies fever, chills, nausea or vomiting. Patient denies pain. Patient denies recent trauma. Patient reports bandages are being changed as directed. Patient does not report any new problems. Exam/Review of Systems Vital Signs Vitals Vital Signs Date Time Temp Pulse Resp B/P Pulse Ox O2 Delivery O2 Flow Rate FiO2 08/03/17 21:02 98 20 98 Nasal Cannula 2.0 08/03/17 19:45 98.6 139/65 08/03/17 02:10 24 Intake and Output 08/02/17 08/02/17 08/03/17 15:00 23:00 07:00 Intake Total 250 ml 1850 ml 1495 ml Output Total 650 ml 700 ml Balance 250 ml 1200 ml 795 ml Exam Free Text/Dictation Continues to have gangrenous changes on both feet. Status post transmetatarsal amputation of the left foot. No pus noted. Mild malodor present. Nonpalpable pedal pulses noted. Decreased protective sensation to sharp, dull, vibratory temperature stimuli noted. Results Result Diagram: 08/01/17 0559 08/01/17 0559 EMILY FISHMAN DPM Aug 03, 2017 18:25
[2017-08-03] MEDS: ATORVASTATIN 20 MG TAB GTB SCH (19:53)
[2017-08-04] VITALS (11 sets, daily range): BP systolic 118–197; BP diastolic 57–91; PULSE 95–134; RESP 16–20
[2017-08-04] MEDS: hydrALAzine 20 MG INJ IV PRN (00:27)
[2017-08-04] MEDS: SOD CHLORIDE 0.9% 1,000 ML IV SCH (00:27)
[2017-08-04] MEDS: ONDANSETRON 4 MG INJ IV PRN ×3 (01:21→11:49)
[2017-08-04] MEDS: ALBUTEROL/IPRATROPIUM (NEB) 3 ML AMP INH SCH ×4 (02:10→19:54)
[2017-08-04] MEDS: Insulin NOVOLOG SS MILD Algorithm (NPO/TPN/ENTERAL FEEDS) SC SCH ×3 (05:51→17:18)
[2017-08-04 07:37] LABS: BASOPHIL # 0.1 10^3/ul (0.0-0.1); BASOPHILS % 0.5 % (0.0-2.0); EOSINOPHILS # 0.5 10^3/ul (0.0-0.5); EOSINOPHILS % 3.5 % (0.0-7.0); HEMATOCRIT 34.6 % (37.0-47.0); HEMOGLOBIN 11.1 g/dl (12.0-16.0); LYMPHOCYTES # 1.1 10^3/ul (0.8-2.9); LYMPHOCYTES % 7.7 % (15.0-51.0); MEAN CORPUSCULAR HGB CONC 32.1 g/dl (32.0-37.0); MEAN CORPUSCULAR VOLUME 87.4 fl (82.0-101.0); MEAN PLATELET VOLUME 10.4 fl (7.4-10.4); MONOCYTES % 6.9 % (0.0-11.0); NEUTROPHIL # 12.1 10^3/ul (1.6-7.5); NEUTROPHILS % 80.9 % (39.0-77.0); PLATELET COUNT 254 10^3/UL (140-415); RED BLOOD COUNT 3.96 10^6/ul (4.20-5.40); RED CELL DISTRIBUTION WIDTH 14.9 % (11.5-14.5); WHITE BLOOD COUNT 14.9 10^3/ul (4.8-10.8)
[2017-08-04 07:57] LABS: CALCIUM 8.9 mg/dl (8.4-10.2); CREATININE 0.75 mg/dl (0.44-1.00); POTASSIUM 3.9 mmol/L (3.5-5.1)
[2017-08-04] MEDS: LINAGLIPTIN 5 MG TABLET GTB SCH (09:00)
[2017-08-04] MEDS ORDERED: INSULIN DETEMIR [LEVEMIR] 3ML CART SC SCH (10:30)
[2017-08-04] MEDS: LANSOPRAZOLE 30 MG CAP GTB SCH (11:00)
[2017-08-04] MEDS: AMIODARONE 200 MG TAB GTB SCH (11:00)
[2017-08-04] MEDS: ASCORBIC ACID 500 MG TAB GTB SCH ×2 (11:00→20:26)
[2017-08-04] MEDS: PREGABALIN 75 MG CAP GTB SCH ×2 (11:00→20:26)
[2017-08-04] MEDS: CHLORHEXIDINE GLUCONATE 15 ML UD CUP MM SCH ×2 (11:01→20:26)
[2017-08-04] MEDS: NYSTATIN 30 GM POWDER BTL TOP SCH ×2 (11:01→20:26)
[2017-08-04] MEDS: COLLAGENASE 30 GM TUBE TOP SCH (11:01)
[2017-08-04] MEDS: MULTIVITAMINS 30 ML CUP GTB SCH (11:01)
[2017-08-04] MEDS: PIPER-TAZO 3.375 GM IV (PMX) 100 ML IVPB SCH ×4 (11:02→23:49)
[2017-08-04] MEDS: DEXTROSE 5%-0.45% NACL 1,000 ML IV SCH (11:02)
--- NOTE | 2017-08-04 11:03 | RADRPT ---
PROCEDURE: XR Chest. CLINICAL INDICATION: Shortness of breath TECHNIQUE: Single portable view of the chest was obtained COMPARISON: July 28, 2017 FINDINGS: Tracheostomy tube in situ.. Cardiac silhouette and vascularity are enlarged and there is diffuse nurys ateral interstitial infiltrates and small bilateral pleural effusions. IMPRESSION: 1. Tracheostomy tube in situ. 2. Interval development of congestive heart failure with bilateral interstitial infiltrates/edema an d small pleural effusions. RPTAT: [facility] Physician Luci Date Time Electronically viewed and signed by Marly Hall Physician on 08/04/2017 11:02 ANGELA/
[2017-08-04] MEDS: ACETAMINOPHEN 650MG/20.3ML CUP GTB PRN (13:31)
[2017-08-04] MEDS: LORAZEPAM 0.5 MG TAB GTB PRN (14:27)
[2017-08-04] MEDS ORDERED: FUROSEMIDE 40 MG INJ IV ONE (14:30)
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
[2017-08-04] MEDS: ATORVASTATIN 20 MG TAB GTB SCH (20:26)
[2017-08-04] MEDS: HYDROmorphONE 2 MG TAB GTB PRN (20:27)
--- NOTE | 2017-08-04 23:49 | PN ---
Date/Time of Note Date/Time of Note DATE: 08/04/17 TIME: 23:49 Assessment/Plan Lines/Catheters IV Catheter Type (from [facility]): Peripheral IV Salazar in Place (from [facility]): Yes Assessment/Plan Chief Complaint/Hosp Course Thank you very much for involving me in the care of this patient. As you very well know this is a 62-year-old female patient with multiple medical problems including diabetes mellitus, peripheral vascular disease, hypertension, acute kidney injury, dyslipidemia, anemia of chronic disease, with multiple gangrenous changes on both feet. I was consulted for evaluation and treatment. Patient resides at [facility] respiratory unit and was found to have hemoglobin of 7.1. Patient was brought to the hospital for evaluation. Patient has been admitted to the telemetry floor. Problems: Exam/Review of Systems Vital Signs Vitals Vital Signs Date Time Temp Pulse Resp B/P Pulse Ox O2 Delivery O2 Flow Rate FiO2 08/04/17 23:40 97.5 103 16 126/64 100 08/04/17 19:58 6.0 08/04/17 19:58 Nasal Cannula 08/03/17 02:10 24 Intake and Output 08/03/17 08/03/17 08/04/17 15:00 23:00 07:00 Intake Total 1525 ml 900 ml Output Total 800 ml 1200 ml Balance 725 ml -300 ml Results Result Diagram: 08/04/17 0640 08/04/17 0640 EMILY FISHMAN DPM Aug 04, 2017 23:49
[2017-08-05] VITALS (12 sets, daily range): BP systolic 115–159; BP diastolic 55–72; PULSE 100–120; RESP 15–20
[2017-08-05] MEDS: Insulin NOVOLOG SS MILD Algorithm (NPO/TPN/ENTERAL FEEDS) SC SCH ×4 (00:04→18:00)
[2017-08-05] MEDS: INSULIN DETEMIR [LEVEMIR] 3ML CART SC SCH ×3 (00:05→22:35)
[2017-08-05] MEDS: DEXTROSE 5%-0.45% NACL 1,000 ML IV SCH ×2 (02:24→22:24)
[2017-08-05] MEDS: ONDANSETRON 4 MG INJ IV PRN ×2 (02:58→20:47)
[2017-08-05] MEDS: HYDROmorphONE 2 MG TAB GTB PRN (02:58)
[2017-08-05] MEDS: ALBUTEROL/IPRATROPIUM (NEB) 3 ML AMP INH SCH ×4 (03:00→19:25)
[2017-08-05] MEDS: PIPER-TAZO 3.375 GM IV (PMX) 100 ML IVPB SCH (06:20)
[2017-08-05 09:10] LABS: ABNORMAL IP MESSAGE 1; HEMATOCRIT 33.1 % (37.0-47.0); HEMOGLOBIN 10.6 g/dl (12.0-16.0); MEAN CORPUSCULAR HEMOGLOBIN 28.3 pg (29.0-33.0); MEAN CORPUSCULAR VOLUME 88.3 fl (82.0-101.0); MEAN PLATELET VOLUME 10.8 fl (7.4-10.4); PLATELET COUNT 236 10^3/UL (140-415); RED BLOOD COUNT 3.75 10^6/ul (4.20-5.40); RED CELL DISTRIBUTION WIDTH 15.3 % (11.5-14.5); WHITE BLOOD COUNT 26.5 10^3/ul (4.8-10.8)
[2017-08-05 09:13] LABS: POSITIVE DIFF @See below
[2017-08-05] MEDS: CHLORHEXIDINE GLUCONATE 15 ML UD CUP MM SCH ×2 (09:19→20:47)
[2017-08-05] MEDS: MULTIVITAMINS 30 ML CUP GTB SCH (09:19)
[2017-08-05] MEDS: LANSOPRAZOLE 30 MG CAP GTB SCH (09:19)
[2017-08-05] MEDS: PREGABALIN 75 MG CAP GTB SCH ×2 (09:19→20:47)
[2017-08-05] MEDS: COLLAGENASE 30 GM TUBE TOP SCH (09:19)
[2017-08-05] MEDS: AMIODARONE 200 MG TAB GTB SCH (09:19)
[2017-08-05] MEDS: ASCORBIC ACID 500 MG TAB GTB SCH ×2 (09:19→20:47)
[2017-08-05] MEDS: NYSTATIN 30 GM POWDER BTL TOP SCH ×2 (09:20→21:07)
[2017-08-05] MEDS: LINAGLIPTIN 5 MG TABLET GTB SCH (09:20)
--- NOTE | 2017-08-05 09:36 | RADRPT ---
PROCEDURE: XR Chest 1 view. CLINICAL INDICATION: Shortness of breath. TECHNIQUE: AP views of the chest was obtained. COMPARISON: Yesterday FINDINGS: The heart is large. Calcified atherosclerosis is noted in the aorta. Tracheostomy tube is stable an d appears in grossly appropriate location. Patchy infiltrates throughout both lungs and small to mod erate bilateral pleural effusions are stable. The osseous structures are unchanged. IMPRESSION: Cardiomegaly with calcified atherosclerosis in the aorta. Stable patchy infiltrates throughout both lungs and small to moderate bilateral pleural effusions. RPTAT: AA .Jonnie Vasquez MD, Date Time Electronically viewed and signed by .Jonnie Vasquez MD, MD on 08/05/2017 09:36 .P/
[2017-08-05 09:38] LABS: CALCIUM 8.8 mg/dl (8.4-10.2); CREATININE 0.92 mg/dl (0.44-1.00); POTASSIUM 4.5 mmol/L (3.5-5.1)
[2017-08-05 10:21] LABS: ANISOCYTOSIS 2+ (0-0); EOSINOPHILS % (M) 1 % (0-7); MICROCYTOSIS 2+ (0-0); MONOCYTES % (M) 6 % (0-11); PLATELET ESTIMATE NORMAL; POIKILOCYTOSIS 1+ (0-0); POLYCHROMASIA 2+ (0-0)
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
[2017-08-05] MEDS ORDERED: LIDOCAINE 1% (MPF) 5 ML VIAL SC ONE (11:00)
[2017-08-05] MEDS ORDERED: VANCOMYCIN IV PER PHARMACY XX SCH (11:00)
[2017-08-05] MEDS ORDERED: VANCOMYCIN 1.5 GM in SOD CHLORIDE 0.9% 250 ML IVPB SCH (13:00)
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
[2017-08-05] MEDS ORDERED: MEROPENEM 500MG/50 ML (PMX) 50 ML IVPB SCH (14:00)
--- NOTE | 2017-08-05 17:06 | RADRPT ---
PROCEDURE: US guidance for PICC line CLINICAL INDICATION: PICC line placement TECHNIQUE: Multiple real-time images were acquired of the patient's arm utilizing a high resolutio n transducer. This was performed by the PICC line nurse for venous access. COMPARISON: None FINDINGS: See impression. IMPRESSION: Ultrasound guidance for PICC line placement. There is a patent and compressible right upper extremity vein. RPTAT: AA Physician Alta Date Time Electronically viewed and signed by Aleks Bronson Physician on 08/05/2017 17:06 /
--- NOTE | 2017-08-05 17:08 | RADRPT ---
PROCEDURE: XR Chest. CLINICAL INDICATION: Check Line Placement TECHNIQUE: Single frontal view of the chest was obtained. COMPARISON: Chest x-ray from 08/05/2017 at 07:28 hours FINDINGS: There has been interval placement of a right-sided PICC line with its tip in the proximal to mid SVC . A tracheostomy is again noted. There is stable mild cardiomegaly and moderate pulmonary vascular congestion. There are stable patchy infiltrates and layering effusions in bilateral lung bases. The aortic arch is calcified. IMPRESSION: Interval placement of a right-sided PICC line with its tip in the proximal to mid SVC. Otherwise, no significant interval change. RPTAT: EE Physician Alta Date Time Electronically viewed and signed by Physician Alta on 08/05/2017 17:07 /
[2017-08-05] MEDS: EPOETIN 10000 UNITS/ML VIAL (ONCOLOGY) SC SCH (17:32)
--- NOTE | 2017-08-05 18:10 | CONS ---
Date/Time of Note Date/Time of Note DATE: 08/05/17 TIME: 18:08 Assessment/Plan Assessment/Plan Additional Assessment/Plan Additional Assessment/Plan IMPRESSION: 1. 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 2. Chronic disease is a contributing factor. 3. Kidney injury. 4. History of stroke with a burn over the lower extremities. 5. Hypertension. 6. Dyslipidemia. 7. Diabetes mellitus. 8. Leukocytosis 9. Emesis yesterday Plan Continue present care Reglan 5 mg IV push every 6 hours Antibiotics as per ID Consultation Date/Type/Reason Admit Date/Time Jul 28, 2017 at 17:22 Type of Consultation: Foot and ankle surgery 24 HR Interval Summary Free Text/Dictation Patient states he is hungry and wants to eat Exam/Review of Systems Vital Signs Vitals Vital Signs Date Time Temp Pulse Resp B/P Pulse Ox O2 Delivery O2 Flow Rate FiO2 08/05/17 16:52 104 08/05/17 15:09 99.0 18 127/61 94 08/05/17 14:01 6.0 08/05/17 14:00 Nasal Cannula 08/03/17 02:10 24 Intake and Output 08/04/17 08/04/17 08/05/17 14:59 22:59 06:59 Intake Total 200 ml 400 ml 750 ml Output Total 900 ml 600 ml Balance 200 ml -500 ml 150 ml Exam Constitutional: alert, oriented, well developed Psych: nl mood/affect, no complaints Head: atraumatic, normocephalic Eyes: EOMI, PERRL, nl conjunctiva, nl lids, nl sclera ENMT: nl external ears & nose, nl lips & teeth, nl nasal mucosa & septum Neck: non-tender, supple Respiratory: clear to auscultation, normal air movement Cardiovascular: nl pulses, regular rate and rhythm Gastrointestinal: nl liver, spleen, non-tender, soft Musculoskeletal: nl extremities to inspection, nl gait and stance Extremities: normal pulses 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: 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 II-XII intact, nl mental status, nl speech, nl strength Skin: nl turgor, No rash or lesions Lymph: nl lymph nodes Results Result Diagram: 08/05/17 0809 08/05/17 0809 Results 24 hrs Laboratory Tests Test 08/04/17 23:46 08/05/17 06:18 08/05/17 08:09 08/05/17 09:34 Bedside Glucose 170 162 167 White Blood Count 26.5 #H Red Blood Count 3.75 L Hemoglobin 10.6 L Hematocrit 33.1 L Mean Corpuscular Volume 88.3 Mean Corpuscular Hemoglobin 28.3 L Mean Corpuscular Hemoglobin Concent 32.0 Red Cell Distribution Width 15.3 H Platelet Count 236 Mean Platelet Volume 10.8 H Neutrophils % Segmented Neutrophils % (Manual) 87 H Band Neutrophils % (Manual) 1 Lymphocytes % Lymphocytes % (Manual) 5 L Monocytes % Monocytes % (Manual) 6 Eosinophils % Eosinophils % (Manual) 1 Basophils % Nucleated Red Blood Cells % 0.0 Neutrophils # Neutrophils # (Manual) 23.1 H Band Neutrophils # 0.2 Absolute Lymphocytes (Manual) 1.3 Lymphocytes # Monocytes # Absolute Monocytes (Manual) 1.5 H Eosinophils # Basophils # Nucleated Red Blood Cells # Platelet Estimate NORMAL Polychromasia 2+ Poikilocytosis 1+ Anisocytosis 2+ Microcytosis 2+ Sodium Level 143 Potassium Level 4.5 Chloride Level 110 Carbon Dioxide Level 26 Anion Gap 12 Blood Urea Nitrogen 26 H Creatinine 0.92 Glucose Level 138 # Calcium Level 8.8 Test 08/05/17 16:14 Bedside Glucose 137 Medications Medications Current Medications Acetaminophen (Tylenol Liquid) 650 mg Q6H PRN GTB MILD PAIN LEVEL 1-3 Last administered on 08/04/17 13:31; Admin Dose 650 MG; Start 07/28/17 at 22:30 Amiodarone HCl (Cordarone) 200 mg DAILY GTB Last administered on 08/05/17 09: 19; Admin Dose 200 MG; Start 07/29/17 at 09:00 Atorvastatin Calcium (Lipitor) 20 mg QHS GTB Last administered on 08/04/17 20 :26; Admin Dose 20 MG; Start 07/29/17 at 21:00 Chlorhexidine Gluconate (Peridex) 15 ml BID MM Last administered on 08/05/17 09:19; Admin Dose 15 ML; Start 07/29/17 at 09:00 Hydralazine HCl (Apresoline) 50 mg Q8 PO Last administered on 08/05/17 14:00 ; Admin Dose 50 MG; Start 07/29/17 at 06:00 Hydromorphone HCl (Dilaudid) 1 mg Q3H PRN GTB PAIN 4-07/28 Last administered on 08/05/17 02:58; Admin Dose 1 MG; Start 07/28/17 at 22:30 Hydromorphone HCl (Dilaudid) 2 mg DAILY PRN GTB PAIN Last administered on 08/04 20:27; Admin Dose 2 MG; Start 07/28/17 at 22:30 Lansoprazole (Prevacid) 30 mg DAILY GTB Last administered on 08/05/17 09:19; Admin Dose 30 MG; Start 07/29/17 at 09:00 Linagliptin (Tradjenta) 5 mg DAILY GTB Last administered on 08/05/17 09:20; Admin Dose 5 MG; Start 07/29/17 at 09:00 Loperamide HCl (Imodium Cap) 2 mg Q4H PRN GTB DIARRHEA; Start 07/28/17 at 22: 30 Pregabalin (Lyrica) 75 mg BID GTB Last administered on 08/05/17 09:19; Admin Dose 75 MG; Start 07/29/17 at 09:00 Multivitamins (Multivitamin) 30 ml DAILY GTB Last administered on 08/05/17 09 :19; Admin Dose 30 ML; Start 07/29/17 at 09:00 Insulin Aspart (Novolog Insulin Pen) (Adult SC Insulin - Mild Algorithm)... Q6 SC Last administered on 08/05/17 06:48; Admin Dose 1 UNIT; Start 07/29/17 at 00:00 Miscellaneous Information 1 ea NOTE XX ; Start 07/28/17 at 23:00 Glucose (Glutose) 15 gm Q15M PRN PO DECREASED GLUCOSE; Start 07/28/17 at 23:00 Glucose (Glutose) 22.5 gm Q15M PRN PO DECREASED GLUCOSE; Start 07/28/17 at 23: 00 Dextrose (D50w Syringe) 25 ml Q15M PRN IV DECREASED GLUCOSE; Start 07/28/17 at 23:00 Dextrose (D50w Syringe) 50 ml Q15M PRN IV DECREASED GLUCOSE; Start 07/28/17 at 23:00 Glucagon (Glucagen) 1 mg Q15M PRN IM DECREASED GLUCOSE; Start 07/28/17 at 23: 00 Glucose (Glutose) 15 gm Q15M PRN BUCCAL DECREASED GLUCOSE; Start 07/28/17 at 23:00 Miscellaneous Information (Pending Santyl Order For Wound Care) This patient alonzo... PRN PRN XX WOUND CARE; Start 07/29/17 at 06:30 Ascorbic Acid (Vitamin C) 500 mg BID GTB Last administered on 08/05/17 09:19 ; Admin Dose 500 MG; Start 07/29/17 at 21:30 Collagenase (Santyl) 1 applic DAILY TOP Last administered on 08/05/17 09:19; Admin Dose 1 APPLIC; Start 07/30/17 at 09:00 Nystatin (Nystatin Powder) 1 applic BID TOP Last administered on 08/05/17 09: 20; Admin Dose 1 APPLIC; Start 07/29/17 at 22:30 Epoetin Baudilio (Epogen (Oncology)) 10,000 units We@17 SC Last administered on 17:32; Admin Dose 10,000 UNITS; Start 08/05/17 at 17:00 Hydralazine HCl (Apresoline) 10 mg Q4H PRN IV ELEVATED BLOOD PRESSURE Last administered on 08/04/17 00:27; Admin Dose 10 MG; Start 08/03/17 at 11:51 Ondansetron HCl 4 mg 4 mg Q4H PRN IV NAUSEA AND/OR VOMITING Last administered on 08/05/17 02:58; Admin Dose 4 MG; Start 08/03/17 at 15:00 Dextrose/Sodium Chloride (D5-1/2ns) 1,000 ml @ 50 mls/hr Q20H IV Last administered on 08/05/17 02:24; Admin Dose 50 MLS/HR; Start 08/04/17 at 09:00 Insulin Detemir (Levemir) 10 unit Q12H SC Last administered on 08/05/17 09:57 ; Admin Dose 10 UNIT; Start 08/04/17 at 22:30 Lorazepam 0.5 mg 0.5 mg Q6H PRN GTB ANXIETY Last administered on 08/04/17 14: 27; Admin Dose 0.5 MG; Start 08/04/17 at 14:30 Meropenem/Sodium Chloride 50 ml @ 200 mls/hr Q8 IVPB ; Start 08/05/17 at 14:00 Vancomycin HCl/ Sodium Chloride (Vancocin/NS) 250 ml @ 83.333 mls/ hr ONCE IVPB Last administered on 08/05/17t 17:21; Admin Dose 83.333 MLS/HR; Start at 13:00; Stop 08/05/17 at 21:00 IV Flush 10 ml 10 ml PRN PRN IV IV PROTOCOL; Start 08/05/17 at 17:30 Vancomycin HCl/ Sodium Chloride (Vancocin/NS) 150 ml @ 75 mls/hr Q12H IVPB ; Start 08/06/17 at 05:00 SLIM SUTTON MD Aug 05, 2017 18:10
[2017-08-05] MEDS: ATORVASTATIN 20 MG TAB GTB SCH (20:47)
[2017-08-05] MEDS: MEROPENEM 500MG/50 ML (PMX) 50 ML IVPB SCH (20:47)
[2017-08-06] VITALS (15 sets, daily range): BP systolic 94–163; BP diastolic 49–94; PULSE 82–121; RESP 11–23
[2017-08-06] MEDS: METOCLOPRAMIDE 10 MG INJ IV SCH ×4 (00:04→19:02)
[2017-08-06] MEDS: Insulin NOVOLOG SS MILD Algorithm (NPO/TPN/ENTERAL FEEDS) SC SCH ×4 (00:10→18:00)
[2017-08-06] MEDS: ALBUTEROL/IPRATROPIUM (NEB) 3 ML AMP INH SCH ×4 (01:31→20:00)
[2017-08-06] MEDS: ACETAMINOPHEN 650MG/20.3ML CUP GTB PRN (02:01)
[2017-08-06] MEDS: LORAZEPAM 0.5 MG TAB GTB PRN ×2 (03:31→10:25)
[2017-08-06] MEDS: VANCOMYCIN 750 MG in SOD CHLORIDE 0.9% 150 ML IVPB SCH ×2 (04:56→19:02)
[2017-08-06] MEDS: MEROPENEM 500MG/50 ML (PMX) 50 ML IVPB SCH ×3 (06:04→21:42)
[2017-08-06 06:33] LABS: BASOPHIL # 0.1 10^3/ul (0.0-0.1); BASOPHILS % 0.4 % (0.0-2.0); EOSINOPHILS # 0.3 10^3/ul (0.0-0.5); EOSINOPHILS % 2.4 % (0.0-7.0); HEMATOCRIT 29.2 % (37.0-47.0); HEMOGLOBIN 9.2 g/dl (12.0-16.0); LYMPHOCYTES # 1.1 10^3/ul (0.8-2.9); LYMPHOCYTES % 7.8 % (15.0-51.0); MEAN CORPUSCULAR HEMOGLOBIN 28.3 pg (29.0-33.0); MEAN CORPUSCULAR HGB CONC 31.5 g/dl (32.0-37.0); MEAN CORPUSCULAR VOLUME 89.8 fl (82.0-101.0); MEAN PLATELET VOLUME 10.2 fl (7.4-10.4); MONOCYTE # 1.2 10^3/ul (0.3-0.9); MONOCYTES % 8.2 % (0.0-11.0); NEUTROPHIL # 11.3 10^3/ul (1.6-7.5); NEUTROPHILS % 80.7 % (39.0-77.0); PLATELET COUNT 208 10^3/UL (140-415); RED BLOOD COUNT 3.25 10^6/ul (4.20-5.40); RED CELL DISTRIBUTION WIDTH 15.4 % (11.5-14.5)
[2017-08-06 07:17] LABS: CALCIUM 8.3 mg/dl (8.4-10.2); CREATININE 0.94 mg/dl (0.44-1.00)
[2017-08-06] MEDS: LANSOPRAZOLE 30 MG CAP GTB SCH (08:38)
[2017-08-06] MEDS: AMIODARONE 200 MG TAB GTB SCH (08:38)
[2017-08-06] MEDS: LINAGLIPTIN 5 MG TABLET GTB SCH (08:39)
[2017-08-06] MEDS: CHLORHEXIDINE GLUCONATE 15 ML UD CUP MM SCH ×2 (08:39→20:10)
[2017-08-06] MEDS: MULTIVITAMINS 30 ML CUP GTB SCH (08:39)
[2017-08-06] MEDS: HYDROmorphONE 2 MG TAB GTB PRN (08:39)
[2017-08-06] MEDS: ASCORBIC ACID 500 MG TAB GTB SCH ×2 (08:40→20:10)
[2017-08-06] MEDS: PREGABALIN 75 MG CAP GTB SCH (08:41)
[2017-08-06] MEDS: NYSTATIN 30 GM POWDER BTL TOP SCH ×2 (08:43→21:11)
[2017-08-06] MEDS: COLLAGENASE 30 GM TUBE TOP SCH (09:00)
[2017-08-06] MEDS: ONDANSETRON 4 MG INJ IV PRN (09:14)
[2017-08-06] MEDS: INSULIN DETEMIR [LEVEMIR] 3ML CART SC SCH ×2 (09:16→21:45)
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
[2017-08-06] MEDS ORDERED: LIDOCAINE 1% (MDV) 20 ML INJ ONE (15:13)
[2017-08-06] MEDS ORDERED: FENTAnyl 50 MCG/ML VIAL ONE (15:14)
[2017-08-06] MEDS ORDERED: MIDAZOLAM 1 MG/ML 2 ML INJ ONE (15:14)
[2017-08-06] MEDS ORDERED: hydrALAzine 20 MG INJ ONE (15:30)
[2017-08-06] MEDS ORDERED: ONDANSETRON 4 MG INJ ONE (16:05)
[2017-08-06] MEDS: PROPOFOL 100 ML IV SCH (17:30)
--- NOTE | 2017-08-06 17:38 | QN ---
Documentation Comment it seems the patient still required oxygen support therefore was transferred to ICU for respiratory evaluation and treatment. Patient trach was changed without any complications and patient was placed on vent. Pulmonary service was notified and discussed with respiratory service for the appropriate vent settings HERBERT FULTON MD Aug 06, 2017 17:38
--- NOTE | 2017-08-06 18:28 | RADRPT ---
PROCEDURE: XR Chest. CLINICAL INDICATION: Respiratory distress. TECHNIQUE: Portable AP semi - erect view of the chest was obtained. COMPARISON: 08/05/2017 FINDINGS: The cardiomediastinal silhouette is mildly enlarged . Tracheostomy is again noted in satisfactory p osition. The right PICC is unchanged in satisfactory position the tip in the superior vena cava abov e the right atrial junction. Pulmonary vascular congestion is slightly decreased. Bilateral pleura l effusions are believed to be stable. Multiple monitoring wires overlie the chest limiting fine patti luation. RPTAT:HJJR IMPRESSION: 1. Slight interval decrease in pulmonary vascular congestion compared to 08/05/2017. 2. Stable bilateral pleural effusions. 3. Tracheostomy and right PICC remain in satisfactory positions. Physician Marina Date Time Electronically viewed and signed by Physician Marina on 08/06/2017 18:27 /
[2017-08-06 18:44] LABS: AADO2 Arterial 216.9 mmHg (7.0-24.0); Allen Test ACCEPTAB; Arterial Base Excess -3.9 mmol/L (-3.0-3); Arterial COHb 0.3 % (0.0-3.0); Arterial Fraction of Oxyhgb 95.7 % (93.0-99.0); Arterial HCO3 22.7 mmol/L (22.0-26.0); Arterial MetHb 0.2 % (0.0-1.5); Arterial Total Hemglobin 10.9 g/dl (12.0-18.0); MODE VENT - AC
--- NOTE | 2017-08-06 18:58 | SIPON ---
Date/Time of Note Date/Time of Note DATE: 08/06/17 TIME: 18:57 Operative Report Preoperative Diagnosis BLE GANGRENE Postoperative Diagnosis SAME Operation/Procedure Performed AORTOLILAC ANGIOGRAM WITH LLE ANGIOGRAM Surgeon see signature line bilingual legal assistant NONE Anesthesia: other (LOCAL) Estimated blood loss: minimal Transfusion Required none Specimen NONE Grafts/Implants none Complications none HERBERT FULTON MD Aug 06, 2017 18:58
[2017-08-06] MEDS: DEXTROSE 5%-0.45% NACL 1,000 ML IV SCH (19:02)
--- NOTE | 2017-08-06 19:55 | OPR ---
DATE OF OPERATION: 08/06/2017 SURGEON: Sanket Manley MD. PREOPERATIVE DIAGNOSIS: Bilateral lower extremity gangrene. POSTOPERATIVE DIAGNOSIS: Bilateral lower extremity gangrene. ANESTHESIA: Local anesthesia. ESTIMATED BLOOD LOSS: Minimal. COMPLICATIONS: None. HEPARIN: 5000 units given. CONTRAST: As recorded. ACCESS: Right common femoral artery 6-Yemeni sheath. CLOSURE: Manual compression and Angio-Seal closure device. SEDATION: None. INDICATIONS: This is a 62-year-old female with history of hypercoagulable state who presented with bilateral lower extremity gangrene. The patient has had a history of previous heat stroke in which she sustained superficial wounds and had been bedridden for about the past month secondary to her re covery and having respiratory failure, which required tracheostomy and G-tube placement for feeding. The patient has since recovered and has been making progress. She had begun to develop worsening gangrene of her lower extremities. The patient has been to an outside hospital, had been evaluated by previous vascular surgeons, had attempted bilateral lower extremity revascularizations that have failed. Therefore, the patient had sought our second opinion for intervention and possible revascul arization. After discussing the risks, benefits and alternatives of an angiogram, balloon angioplas ty, stenting and atherectomy, risks including but not limited to bleeding, thrombosis, embolization, myocardial infarction, , stroke, device malfunction, infection, nephrotoxicity, limb loss, the patient has agreed to proceed, as she would like to have everything done at the cost of her life be cause she does not want to have any further amputations. This is the first angiogram in this clinic al setting. No prior catheter-based angiography, fluoroscopy, or computed tomography studies had be en reported by the patient or in the medical records available to us. PROCEDURE: 1. Ultrasound-guided access of the right common femoral artery. 2. Introduction of catheter in the aorta. 3. Aortoiliac angiogram. 4. Third order selection of the left common femoral artery. 5. Left lower extremity angiogram. FINDINGS: 1. Bilateral renal arteries are patent. 2. Infrarenal aorta is patent; however goes down to very small size. 3. Bilateral common iliac, external iliac, and internal iliac arteries are patent with internal xuan c artery small in caliber as well as iliac vessels. 4. Right common femoral artery with moderate to severe disease at the distal common femoral artery. 5. Right proximal superficial femoral artery seems patent. 6. Right proximal profunda femoral artery patent. 7. Left common femoral artery with mild to moderate disease. 8. Proximal superficial femoral artery is patent with moderate to severe disease in its distal end w ith total occlusion at the adductor canal. 9. Left profunda femoral artery is patent with mild to moderate disease. 10. Left above-knee popliteal artery is occluded. 11. Left popliteal artery graft is occluded. 12. Left at-knee popliteal artery has some reconstitution via collaterals with moderate to severe di sease. 13. Left below-knee popliteal artery is small in caliber and patent. 14. Left anterior tibial artery is patent to the lower leg and not well visualized after that. 15. Left tibioperoneal trunk is patent. 16. Left peroneal artery is diminutive in its proximal segment and not visualized past mid lower leg . 17. Left posterior tibial artery patent all the way down to the ankle. 18. Left common plantar artery is patent with moderate to severe disease in its distal end. 19. Left medial plantar arteries are not well visualized but seem to be caliber with what seems to b e identified as that. 20. Left dorsalis pedis artery is not well visualized. DESCRIPTION OF PROCEDURE: The patient was brought into the angio suite, positioned supine position on the fluoroscopic table. Local anesthesia was given without any complications. The right groin w as shaved, prepped and draped in usual standard sterile fashion. Time out and appropriate site was marked and confirmed. The anesthesia was given in the region of the right common femoral artery. T he artery was then cannulated with a micro access needle under ultrasound guidance and a guidewire w as advanced into the iliac artery under fluoroscopic guidance. The needle was then removed and a mi crocatheter was placed. A Bentson wire was then passed into the infrarenal aorta under fluoroscopic guidance followed by a short 5-Yemeni sheath over the wire. The sheath was then appropriately flus hed with heparinized saline solution. Omniflush catheter was then passed into the suprarenal aorta with aortogram and imaging of the iliac arteries performed. Findings are noted above. An Omniflush catheter was then used to select the left common femoral artery in a third order selection and a le ft lower extremity angiogram was then performed. It was identified that the patient has total occlu julio c at the adductor canal, and it seems that there was a previous bypass right in that segment at t he above-knee popliteal artery, which is occluded. At this point, we decided to attempt to cross th is total occlusion of the fem-pop segment, therefore, using a 4-Yemeni guiding catheter and a Glidew huma, we were able to cross the severe calcified occluded area. This required some attempts of wilson ing our wire, trying different wires, and were able to eventually cross to the below-knee popliteal artery. At this point, we determined to attempt balloon angioplasty and stenting across that segmen t, therefore, a 6-Yemeni sheath was placed over the wire into the left superficial femoral artery. Patient was given heparin intravenously. During this period of time, the patient had not received h er respiratory treatment and required higher dose of oxygen during the procedure. Therefore, we dec ided to bring her back at a later time for our intervention to allow for the patient to receive her respiratory treatments. Therefore, all catheters, wires and sheaths were removed. Angio-Seal closu re device was used to deploy into the right common femoral artery. The patient tolerated the proced ure well and was taken to the postanesthesia care unit in stable condition. The patient was placed on higher dose of nasal cannula oxygen. Blood pressures maintained well during this procedure; delon navarro, will plan to have the patient continue with her respiratory treatments and to be optimized on respiratory status prior to our staged angiogram with intervention. Dictated By: SANKET NEVAREZ/DASHAWN Conf#: [id number] DID#: [id number]
[2017-08-06] MEDS ORDERED: FUROSEMIDE 20 MG INJ IV ONE (20:00)
[2017-08-06] MEDS: ATORVASTATIN 20 MG TAB GTB SCH (20:10)
[2017-08-06] MEDS: PREGABALIN 25 MG CAP GTB SCH (20:22)
[2017-08-06] MEDS: LEVALBUTEROL (HFA) 15 GM INHALER INH SCH (21:00)
[2017-08-06] MEDS: IPRATROPIUM (HFA) 12.9 GM INHALER INH SCH (21:00)
[2017-08-07] VITALS (58 sets, daily range): BP systolic 91–139; BP diastolic 46–63; PULSE 64–89; RESP 13–22
[2017-08-07] MEDS: METOCLOPRAMIDE 10 MG INJ IV SCH ×4 (00:28→17:45)
[2017-08-07] MEDS: Insulin NOVOLOG SS MILD Algorithm (NPO/TPN/ENTERAL FEEDS) SC SCH ×4 (00:32→17:44)
[2017-08-07] MEDS: IPRATROPIUM (HFA) 12.9 GM INHALER INH SCH ×4 (01:15→19:00)
[2017-08-07] MEDS: LEVALBUTEROL (HFA) 15 GM INHALER INH SCH ×4 (01:15→19:00)
--- NOTE | 2017-08-07 02:09 | PN ---
DATE: 08/06/2017 SUBJECTIVE: No acute changes overnight. The patient is awake, slightly tachypneic, in no distress. She is afebrile. VITAL SIGNS: Temperature 98.6, pulse 110, respirations 23, blood pressure 157/62, saturation 98% on nasal cannula. WBC today 14, H and H 9.2 and 29.2, platelets 208, neutrophils 80.7. BUN 26, creatinine 0.94. INDWELLINGS: Trach, PEG, Salazar, right upper extremity PICC line. MICROBIOLOGY: Urine culture grew Pseudomonas aeruginosa. Blood cultures have been negative since a dmission. DIAGNOSTICS: Chest x-ray this morning revealed slight interval decrease in pulmonary vascular conge stion, stable bilateral pleural effusions. ANTIMICROBIALS: The patient is on: 1. Vancomycin. 2. Meropenem. PHYSICAL EXAMINATION: GENERAL: This is a chronically ill-appearing, obese, elderly woman who is in no distress. HEENT: Head atraumatic, normocephalic. Sclerae anicteric. Buccal mucosa dry. NECK: Supple. Tracheostomy present. CHEST: Rise symmetrical. Breath sounds with scattered crackles and expiratory wheezes. HEART: S1, S2. ABDOMEN: Soft, bowel tones present. EXTREMITIES: Bilateral lower extremity gangrene. ASSESSMENT: 1. Sepsis. 2. Possible aspiration pneumonia status post emesis. 3. Urinary tract infection. 4. Severe peripheral vascular disease. 5. Bilateral lower extremities gangrene. 6. History of cerebrovascular accident. 7. Dysphagia, status post PEG placement. PLAN: The patient is scheduled for vascular procedure today. She is covered with broad spectrum an tibiotics, which we will continue. Await for sensitivities and final cultures. Dictated By: GABRIELA CHARLES HVAC MECHANICAL ENGINEER for NANCY STRINGER/DASHAWN Conf#: [id number] DID#: [id number]
[2017-08-07 03:44] LABS: BASOPHILS % 0.4 % (0.0-2.0); EOSINOPHILS # 0.2 10^3/ul (0.0-0.5); HEMATOCRIT 25.4 % (37.0-47.0); HEMOGLOBIN 8.1 g/dl (12.0-16.0); LYMPHOCYTES % 11.1 % (15.0-51.0); MEAN CORPUSCULAR HEMOGLOBIN 28.1 pg (29.0-33.0); MEAN CORPUSCULAR HGB CONC 31.9 g/dl (32.0-37.0); MEAN CORPUSCULAR VOLUME 88.2 fl (82.0-101.0); MEAN PLATELET VOLUME 9.5 fl (7.4-10.4); MONOCYTE # 1.2 10^3/ul (0.3-0.9); NEUTROPHIL # 6.8 10^3/ul (1.6-7.5); NEUTROPHILS % 73.1 % (39.0-77.0); PLATELET COUNT 172 10^3/UL (140-415); RED BLOOD COUNT 2.88 10^6/ul (4.20-5.40); RED CELL DISTRIBUTION WIDTH 15.3 % (11.5-14.5); WHITE BLOOD COUNT 9.3 10^3/ul (4.8-10.8)
[2017-08-07 04:10] LABS: CALCIUM 8.3 mg/dl (8.4-10.2); CREATININE 1.14 mg/dl (0.44-1.00); POTASSIUM 3.8 mmol/L (3.5-5.1)
[2017-08-07] MEDS: PROPOFOL 100 ML IV SCH ×2 (04:38→16:56)
[2017-08-07] MEDS: MEROPENEM 500MG/50 ML (PMX) 50 ML IVPB SCH ×3 (05:38→22:30)
[2017-08-07 07:41] LABS: AADO2 Arterial 112.4 mmHg (7.0-24.0); Allen Test ACCEPTAB; Arterial Base Excess -0.6 mmol/L (-3.0-3); Arterial COHb 0.3 % (0.0-3.0); Arterial Fraction of Oxyhgb 97.2 % (93.0-99.0); Arterial HCO3 22.5 mmol/L (22.0-26.0); Arterial MetHb 0.1 % (0.0-1.5); Arterial Total Hemglobin 8.6 g/dl (12.0-18.0); MODE VENT - AC
[2017-08-07] MEDS: LINAGLIPTIN 5 MG TABLET GTB SCH (07:53)
[2017-08-07] MEDS: NYSTATIN 30 GM POWDER BTL TOP SCH ×2 (07:58→20:17)
[2017-08-07] MEDS: COLLAGENASE 30 GM TUBE TOP SCH (07:58)
[2017-08-07] MEDS ORDERED: VANCOMYCIN 1 GM in NS 250 ML IVPB SCH (08:00)
[2017-08-07] MEDS: LANSOPRAZOLE 30 MG CAP GTB SCH (08:00)
[2017-08-07] MEDS: PREGABALIN 25 MG CAP GTB SCH ×2 (08:14→20:18)
[2017-08-07] MEDS: MULTIVITAMINS 30 ML CUP GTB SCH (08:14)
[2017-08-07] MEDS: ASCORBIC ACID 500 MG TAB GTB SCH ×2 (08:15→20:17)
[2017-08-07] MEDS: AMIODARONE 200 MG TAB GTB SCH (08:15)
[2017-08-07] MEDS: CHLORHEXIDINE GLUCONATE 15 ML UD CUP MM SCH ×2 (08:35→20:18)
[2017-08-07] MEDS: INSULIN DETEMIR [LEVEMIR] 3ML CART SC SCH ×2 (08:37→22:30)
--- NOTE | 2017-08-07 09:25 | RADRPT ---
PROCEDURE: XR Chest. CLINICAL INDICATION: Aspiration pneumonia TECHNIQUE: AP Portable chest. COMPARISON: CHEST 08/06/2017; DR MCFARLANE CHEST 08/05/2017 FINDINGS: Tracheostomy tube and right PICC line are unchanged. The patient is rotated to the right. The cardiomediastinal silhouette is within normal limits. The aortic arch is calcified. Bilateral in terstitial densities and pleural effusions are similar in appearance considering for difference in t echnique. No pneumothorax is seen. The hemidiaphragms are obscured. There are degenerative changes in the spine. IMPRESSION: Tracheostomy tube and right PICC line remain in place No significant change in bilateral interstitial densities, edema and pleural effusions considering f or difference in technique. Physician Keila Date Time Electronically viewed and signed by Physician Keila on 08/07/2017 09:24 CS/
--- NOTE | 2017-08-07 09:29 | CONS ---
Date/Time of Note Date/Time of Note DATE: 08/07/17 TIME: 09:24 Assessment/Plan Assessment/Plan Additional Assessment/Plan Chest x-ray was reviewed from yesterday which is showing bilateral pneumonia. Admission chest x-ray also was reviewed which is clear. Patient currently on assist control of 16, tidal volume 500, PEEP of 5, 30% FiO2. Assessment and recommendations; 1. Patient admitted with anemia underwent attempted lower extremity angiography for evaluation of severe peripheral arterial disease then developed pneumonia possibly aspiration. 2. Chronic respiratory failure, patient however was doing fairly well on T- piece. 3. History of severe jacobson. 4. History of diabetes. 5. Acute renal insufficiency with marked improvement in renal function. Continue current treatment. Obtain follow-up chest x-ray in 24 hours. Consultation Date/Type/Reason Admit Date/Time Jul 28, 2017 at 17:22 Date of Consultation: Aug 07, 2017 Type of Consultation: Pulmonary/critical care Reason for Consultation Pulmonary consultation requested for evaluation of respiratory failure and bilateral pneumonia. Next History of presenting illness; patient is a pleasant 62-year-old lady who was transferred from group home with complaints of low hematocrit. Patient was transfused blood. Patient also has significant peripheral vascular disease and underwent attempted lower extremity angiographic, however during the procedure the patient's respiratory status became unstable and the patient required invasive mechanical ventilation. Patient has been transferred to ICU. By the time I saw the patient is on ventilator via tracheostomy is completely awake and alert. Past medical history; 1. History of severe jacobson resulting in respiratory failure, patient however was doing well on tracheal T piece. 2. Acute renal injury, due to volume depletion with interval improvement after hydration. 3. History of diabetes. 4. History of left partial foot amputation. Status post tracheostomy and G- tube placement. Medications; reviewed. Social history; no show any smoking alcohol or drug abuse. Family history; not available. Occupation history; patient is on disability. Review systems; limited review of systems could be obtained. Patient denies any chest pain, abdominal pain, nausea vomiting, fever or chills. Denies any abdominal pain. Also denies any shortness of breath or chest pain. Denies any chronic pain. General exam; elderly woman, awake, on ventilator via tracheostomy, currently in no distress. Awake and alert. Constitutional: improved Psychological: nl mood/affect Social History Smoking Status: Former smoker Exam/Review of Systems Vital Signs Vitals Vital Signs Date Time Temp Pulse Resp B/P Pulse Ox O2 Delivery O2 Flow Rate FiO2 08/07/17 06:00 80 13 107/59 100 Mechanical Ventilator 08/07/17 06:00 35 08/07/17 04:00 97.6 08/06/17 13:28 6.0 Intake and Output 08/06/17 08/06/17 08/07/17 15:00 23:00 07:00 Intake Total 225 ml 300 ml Output Total 140 ml 140 ml Balance 85 ml 160 ml Exam HEENT exam; supple neck, no JVD. No lymphadenopathy. Midline trachea. No thyromegaly. Tracheostomy in place. Patient has multiple carious teeth. Pupils are midsize and reactive to light. Chest exam; diminished breath sounds bilaterally. No added sounds. S1-S2 audible, no murmurs. Regular rhythm. Abdomen exam; soft, protuberant. No organomegaly. Bowel sounds audible. Extremity exam; chronic lower extremity skin changes with partial left foot amputation. Right lower extremity peripheral pulses not palpable. 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 Results Result Diagram: 08/07/17 0340 08/07/17 0340 Results 24 hrs Laboratory Tests Test 08/06/17 13:16 08/06/17 18:30 08/06/17 21:41 08/07/17 00:30 Bedside Glucose 177 221 H 176 Blood Gas Specimen Source Blood arterial Arterial Blood Date Drawn 08/06/2017 6:35:15 PM Arterial Blood pH (Temp corrected) 7.294 *L Arterial Blood pCO2 (Temp correct) 47.9 H Arterial Blood pO2 (Temp corrected) 85.7 Arterial Blood HCO3 22.7 Arterial Blood Base Excess -3.9 L Arterial Blood Oxygen Saturation 96.2 Nate Test ACCEPTAB Arterial Blood Gas Puncture Site Right Radial Arterial Blood Carboxyhemoglobin 0.3 Arterial Blood Methemoglobin 0.2 Blood Gas A-a O2 Differential 216.9 H Oxyhemoglobin Percent 95.7 Total Hemoglobin 10.9 L Blood Gas Temperature 37.0 Blood Gas Respiration Rate 12.0 Blood Gas Actual Respiration Rate 17 Blood Gas Modality VENT - AC FiO2 50.0 Blood Gas Tidal Volume 500.0 Blood Gas Low PEEP Setting 5.0 Blood Gas Critical Value Read Back ANGEL BYERS Blood Gas Notified Whom Blood Gas Notified Time 08/06/2017 6:41:03 PM Test 08/07/17 03:40 08/07/17 05:42 08/07/17 07:00 White Blood Count 9.3 # Red Blood Count 2.88 L Hemoglobin 8.1 L Hematocrit 25.4 L Mean Corpuscular Volume 88.2 Mean Corpuscular Hemoglobin 28.1 L Mean Corpuscular Hemoglobin Concent 31.9 L Red Cell Distribution Width 15.3 H Platelet Count 172 Mean Platelet Volume 9.5 Neutrophils % 73.1 Lymphocytes % 11.1 L Monocytes % 13.0 H Eosinophils % 2.0 Basophils % 0.4 Nucleated Red Blood Cells % 0.0 Neutrophils # 6.8 Lymphocytes # 1.0 Monocytes # 1.2 H Eosinophils # 0.2 Basophils # 0.0 Nucleated Red Blood Cells # 0.0 Sodium Level 141 Potassium Level 3.8 Chloride Level 109 Carbon Dioxide Level 26 Anion Gap 10 Blood Urea Nitrogen 30 H Creatinine 1.14 H Glucose Level 103 # Calcium Level 8.3 L Vancomycin Level Trough 21.3 *H Bedside Glucose 123 Blood Gas Specimen Source Blood arterial Arterial Blood Date Drawn 08/07/2017 7:20:03 AM Arterial Blood pH (Temp corrected) 7.481 H Arterial Blood pCO2 (Temp correct) 30.9 L Arterial Blood pO2 (Temp corrected) 101.2 H Arterial Blood HCO3 22.5 Arterial Blood Base Excess -0.6 Arterial Blood Oxygen Saturation 97.6 Nate Test ACCEPTAB Arterial Blood Gas Puncture Site Right Radial Arterial Blood Carboxyhemoglobin 0.3 Arterial Blood Methemoglobin 0.1 Blood Gas A-a O2 Differential 112.4 H Oxyhemoglobin Percent 97.2 Total Hemoglobin 8.6 L Blood Gas Temperature 37.0 Blood Gas Respiration Rate 16.0 Blood Gas Actual Respiration Rate 17 Blood Gas Modality VENT - AC FiO2 35.0 Blood Gas Tidal Volume 500.0 Blood Gas Low PEEP Setting 5.0 Blood Gas Notified Whom JLD Blood Gas Notified Time 08/07/2017 7:41:02 AM Medications Medications Current Medications Acetaminophen (Tylenol Liquid) 650 mg Q6H PRN GTB MILD PAIN LEVEL 1-3 Last administered on 08/06/17 02:01; Admin Dose 650 MG; Start 07/28/17 at 22:30 Amiodarone HCl (Cordarone) 200 mg DAILY GTB Last administered on 08/06/17 08: 38; Admin Dose 200 MG; Start 07/29/17 at 09:00 Atorvastatin Calcium (Lipitor) 20 mg QHS GTB Last administered on 08/06/17 20 :10; Admin Dose 20 MG; Start 07/29/17 at 21:00 Chlorhexidine Gluconate (Peridex) 15 ml BID MM Last administered on 08/07/17 08:35; Admin Dose 15 ML; Start 07/29/17 at 09:00 Hydralazine HCl (Apresoline) 50 mg Q8 PO Last administered on 08/06/17 21:42 ; Admin Dose 50 MG; Start 07/29/17 at 06:00 Hydromorphone HCl (Dilaudid) 1 mg Q3H PRN GTB PAIN 4 Last administered on 08/05/17 02:58; Admin Dose 1 MG; Start 07/28/17 at 22:30 Hydromorphone HCl (Dilaudid) 2 mg DAILY PRN GTB PAIN Last administered on 08/06 08:39; Admin Dose 2 MG; Start 07/28/17 at 22:30 Lansoprazole (Prevacid) 30 mg DAILY GTB Last administered on 08/06/17 08:38; Admin Dose 30 MG; Start 07/29/17 at 09:00 Linagliptin (Tradjenta) 5 mg DAILY GTB Last administered on 08/06/17 08:39; Admin Dose 5 MG; Start 07/29/17 at 09:00 Loperamide HCl (Imodium Cap) 2 mg Q4H PRN GTB DIARRHEA; Start 07/28/17 at 22: 30 Multivitamins (Multivitamin) 30 ml DAILY GTB Last administered on 08/06/17 08 :39; Admin Dose 30 ML; Start 07/29/17 at 09:00 Insulin Aspart (Novolog Insulin Pen) (Adult SC Insulin - Mild Algorithm)... Q6 SC Last administered on 08/07/17 00:32; Admin Dose 1 UNIT; Start 07/29/17 at 00:00 Miscellaneous Information 1 ea NOTE XX ; Start 07/28/17 at 23:00 Glucose (Glutose) 15 gm Q15M PRN PO DECREASED GLUCOSE; Start 07/28/17 at 23:00 Glucose (Glutose) 22.5 gm Q15M PRN PO DECREASED GLUCOSE; Start 07/28/17 at 23: 00 Dextrose (D50w Syringe) 25 ml Q15M PRN IV DECREASED GLUCOSE; Start 07/28/17 at 23:00 Dextrose (D50w Syringe) 50 ml Q15M PRN IV DECREASED GLUCOSE; Start 07/28/17 at 23:00 Glucagon (Glucagen) 1 mg Q15M PRN IM DECREASED GLUCOSE; Start 07/28/17 at 23: 00 Glucose (Glutose) 15 gm Q15M PRN BUCCAL DECREASED GLUCOSE; Start 07/28/17 at 23:00 Miscellaneous Information (Pending Santyl Order For Wound Care) This patient alonzo... PRN PRN XX WOUND CARE; Start 07/29/17 at 06:30 Ascorbic Acid (Vitamin C) 500 mg BID GTB Last administered on 08/06/17 20:10 ; Admin Dose 500 MG; Start 07/29/17 at 21:30 Collagenase (Santyl) 1 applic DAILY TOP Last administered on 08/05/17 09:19; Admin Dose 1 APPLIC; Start 07/30/17 at 09:00 Nystatin (Nystatin Powder) 1 applic BID TOP Last administered on 08/06/17 21: 11; Admin Dose 1 APPLIC; Start 07/29/17 at 22:30 Epoetin Baudilio (Epogen (Oncology)) 10,000 units We@17 SC Last administered on 17:32; Admin Dose 10,000 UNITS; Start 08/05/17 at 17:00 Hydralazine HCl (Apresoline) 10 mg Q4H PRN IV ELEVATED BLOOD PRESSURE Last administered on 08/04/17 00:27; Admin Dose 10 MG; Start 08/03/17 at 11:51 Ondansetron HCl 4 mg 4 mg Q4H PRN IV NAUSEA AND/OR VOMITING Last administered on 08/06/17 09:14; Admin Dose 4 MG; Start 08/03/17 at 15:00 Dextrose/Sodium Chloride (D5-1/2ns) 1,000 ml @ 50 mls/hr Q20H IV Last administered on 08/06/17 19:02; Admin Dose 50 MLS/HR; Start 08/04/17 at 09:00 Insulin Detemir (Levemir) 10 unit Q12H SC Last administered on 08/07/17 08:37 ; Admin Dose 10 UNIT; Start 08/04/17 at 22:30 Lorazepam (Ativan) 0.5 mg Q6H PRN GTB ANXIETY Last administered on 08/06/17 10:25; Admin Dose 0.5 MG; Start 08/04/17 at 14:30 IV Flush (NS 10 ml) 10 ml PRN PRN IV IV PROTOCOL; Start 08/05/17 at 17:30 Metoclopramide HCl 5 mg 5 mg Q6 IV Last administered on 08/07/17 05:38; Admin Dose 5 MG; Start 08/06/17 at 00:00 Meropenem/Sodium Chloride 50 ml @ 200 mls/hr Q8 IVPB Last administered on 05:38; Admin Dose 200 MLS/HR; Start 08/05/17 at 20:30 Propofol (Diprivan) 100 ml @ 2.337 mls/ hr Q12H IV ; Start 08/06/17 at 17:30 Pregabalin 75 mg 75 mg BID GTB Last administered on 08/06/17 20:22; Admin Dose 75 MG; Start 08/06/17 at 21:00 Vancomycin HCl (Vancocin) 100 ml @ 100 mls/hr Q12H IVPB ; Start 08/07/17 at 12 :00 HEIDY SANTAMARIA Aug 07, 2017 09:29
[2017-08-07] MEDS: VANCOMYCIN 500MG/NS (PMX) 100 ML IVPB SCH (12:21)
--- NOTE | 2017-08-07 15:39 | PN ---
Date/Time of Note Date/Time of Note DATE: 08/07/17 TIME: 15:30 Assessment/Plan Lines/Catheters IV Catheter Type (from [facility]): PICC Line Salazar in Place (from [facility]): Yes Assessment/Plan Chief Complaint/Hosp Course -Bilateral lower extremity atherosclerosis with gangrene: It seems the patient has plethora of medical conditions with gangrene of the lower extremities which at the moment, they are dry and stable. S/P Aortoiliac angiogram with LLE runoff -Considering that she has been bedridden for the past few months and ambulation may be of question, there may be limited options for vascular intervention. Patient would like to have everything done in order to provide limb salvage, but I did provide realistic outcomes and goals of what we can do for her. There was suggestion of a possible angiogram; However given her respiratory status at the moment will await optimization -Continue her local wound care per our podiatry colleagues. -Optimize vascular status (BP meds, diet, nutrition, exercise, sugar control, antiplatelets). -Discussed findings, plan and management with the patient and she understands. -Thank you for allowing us to partake in the care of your patient. Please call with any questions. Problems: Subjective 24 Hr Interval Summary no new vascular overnight Exam/Review of Systems Vital Signs Vitals Vital Signs Date Time Temp Pulse Resp B/P Pulse Ox O2 Delivery O2 Flow Rate FiO2 08/07/17 12:00 66 08/07/17 09:15 15 100 08/07/17 09:00 101/54 08/07/17 07:15 99.4 08/07/17 06:00 Mechanical Ventilator 08/07/17 06:00 35 08/06/17 13:28 6.0 Intake and Output 08/06/17 08/06/17 08/07/17 15:00 23:00 07:00 Intake Total 225 ml 400 ml Output Total 140 ml 140 ml Balance 85 ml 260 ml Exam Free Text/Dictation GENERAL: Awakes, hard of hearing. CARDIOVASCULAR: S1, S2 present PULMONARY: Coarse BS bilaterally, crackles at the bases CARDIOVASCULAR: S1, S2 present. No murmurs. ABDOMEN: Soft, nontender, nondistended. Bowel sounds positive. Truncal obesity. G-tube intact and dry. LOWER EXTREMITIES: Right lower extremity, groin soft, palpable femoral pulse, nonpalpable pedal pulse . Motor, sensory limited as patient has been bedridden for the past 3 months, able to move her knee and her ankle and elevate her leg; however, very limited motions. Ulcers on her knee and calf, surgical scars in the lower leg from previous incisions, gangrene of the lateral aspect of the fifth toe. Left lower extremity palpable femoral pulse, nonpalpable pedal pulse. Motor and sensory limited, patient is able to bend her knee slightly and perform a leg raise. 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 Results Result Diagram: 08/07/17 0340 08/07/17 0340 HERBERT FULTON MD Aug 07, 2017 15:39
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
--- NOTE | 2017-08-07 16:48 | RADRPT ---
Echocardiogram Report Patient Name: RAN VANN Gender: Female Date: 1955 Study Date: 07-Aug-2017 It Operations Analyst: Romeo [facility] Location: [address] Ref. Physician: YOLANDA GARCIA Quality: Adequate Procedures: Transthoracic echocardiogram with complete 2D, M-Mode, and doppler examination. Indications: Shortness of breath. 2D/M Mode Doppler Measurement Value Normal Ranges Measurement Value Normal Ranges LVIDd 2D 4.4 3.5 - 5.6 cm AV Peak Christiano 1.6 m/sec LVIDs 2D 3.2 2.1 - 4.1 cm AV Peak PG 10.8 mmHg LVPWd 2D 1.5 0.6 - 1.1 cm AI Peak PG 44.9 mmHg IVSd 2D 1.5 0.6 - 1.1 cm AI Peak Christiano 3.3 m/sec AoR Diam 2D 2.4 2.0 - 3.7 cm AI PHT 411.2 msec EDV 2D 87.5 cm3 LVOT Peak Christiano 1.0 m/sec ESV 2D 33.2 cm3 LVOT Peak PG 4.1 mmHg MV E Peak Christiano 1.2 m/sec MV A Peak Christiano 1.2 m/sec MV E/A 1.0 MV Decel Time 171 msec MV Decel Alfalfa 7 MV E/A 1.0 TR Peak Christiano 3.0 m/sec TR Peak PG 36.0 mmHg RVSP 51.0 mmHg Findings Left Ventricle: Normal left ventricular cavity size. Moderate concentric left ventricular hypertrophy. Mild global left ventricular systolic dysfunction. Ejection fraction is visually estimated at 45 %. Tissue Doppler/Mitral Doppler indices are consistent with impaired relaxation (Stage I diastolic dysfunction). These segments of the LV are hypokinetic apical septum. Right Ventricle: Normal right ventricular size. Normal right ventricular systolic function. Left Atrium: The left atrium is normal in size. Right Atrium: The right atrium is normal in size. Mitral Valve: Mild mitral leaflet calcification. Mild mitral annular calcification. Trace mitral regurgitation. Aortic Valve: No significant aortic stenosis. Aortic cusps appear mildly calcified. Mild aortic valve regurgitation. Tricuspid Valve: Normal appearance of the tricuspid valve. Estimated peak PA systolic pressure 51 mmHg. There is mild tricuspid regurgitation. Pulmonic Valve: Pulmonic valve not well visualized. There is trace pulmonic regurgitation. Pericardium: Normal pericardium with no significant pericardial effusion. Aorta: Normal aortic root. IVC: Dilated IVC without respiratory collapse, however, patient on ventilator. Conclusions 1.Normal left ventricular cavity size. Moderate concentric left ventricular hypertrophy. Mild global left ventricular systolic dysfunction. Ejection fraction is visually estimated at 45 %. Tissue Doppler/Mitral Doppler indices are consistent with impaired relaxation (Stage I diastolic dysfunction). These segments of the LV are hypokinetic apical septum. 2.Mild mitral leaflet calcification. Mild mitral annular calcification. Trace mitral regurgitation. 3.No significant aortic stenosis. Aortic cusps appear mildly calcified. Mild aortic valve regurgitation. 4.Normal appearance of the tricuspid valve. Estimated peak PA systolic pressure 51 mmHg. There is mild tricuspid regurgitation. 5.Pulmonic valve not well visualized. There is trace pulmonic regurgitation. Electronically Signed By: Temo Cobb 07-Aug-2017 16:47:25 -0700 Patient Name: RAN VANN Study Date: 07-Aug-2017 [id number]
[2017-08-07] MEDS: DEXTROSE 5%-0.45% NACL 1,000 ML IV SCH (16:55)
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
[2017-08-07] MEDS: ATORVASTATIN 20 MG TAB GTB SCH (20:18)
[2017-08-08] VITALS (40 sets, daily range): BP systolic 105–153; BP diastolic 48–65; PULSE 63–87; RESP 13–26
[2017-08-08] MEDS: METOCLOPRAMIDE 10 MG INJ IV SCH ×4 (01:01→17:01)
[2017-08-08] MEDS: LEVALBUTEROL (HFA) 15 GM INHALER INH SCH ×4 (01:04→19:12)
[2017-08-08] MEDS: IPRATROPIUM (HFA) 12.9 GM INHALER INH SCH ×4 (01:04→19:11)
[2017-08-08] MEDS: VANCOMYCIN 500MG/NS (PMX) 100 ML IVPB SCH (01:08)
[2017-08-08] MEDS: HYDROmorphONE 2 MG TAB GTB PRN ×3 (01:43→21:45)
[2017-08-08 04:55] LABS: BASOPHIL # 0.1 10^3/ul (0.0-0.1); BASOPHILS % 0.6 % (0.0-2.0); EOSINOPHILS # 0.3 10^3/ul (0.0-0.5); EOSINOPHILS % 3.6 % (0.0-7.0); HEMATOCRIT 27.2 % (37.0-47.0); HEMOGLOBIN 8.4 g/dl (12.0-16.0); LYMPHOCYTES # 1.3 10^3/ul (0.8-2.9); LYMPHOCYTES % 13.3 % (15.0-51.0); MEAN CORPUSCULAR HEMOGLOBIN 27.2 pg (29.0-33.0); MEAN CORPUSCULAR HGB CONC 30.9 g/dl (32.0-37.0); MEAN PLATELET VOLUME 10.5 fl (7.4-10.4); MONOCYTE # 1.1 10^3/ul (0.3-0.9); MONOCYTES % 11.8 % (0.0-11.0); NEUTROPHIL # 6.7 10^3/ul (1.6-7.5); NEUTROPHILS % 70.3 % (39.0-77.0); PLATELET COUNT 203 10^3/UL (140-415); RED BLOOD COUNT 3.09 10^6/ul (4.20-5.40); WHITE BLOOD COUNT 9.5 10^3/ul (4.8-10.8)
[2017-08-08] MEDS: PROPOFOL 100 ML IV SCH ×2 (05:30→13:58)
[2017-08-08 05:52] LABS: CALCIUM 8.6 mg/dl (8.4-10.2); CREATININE 1.53 mg/dl (0.44-1.00); POTASSIUM 3.8 mmol/L (3.5-5.1)
[2017-08-08] MEDS: Insulin NOVOLOG SS MILD Algorithm (NPO/TPN/ENTERAL FEEDS) SC SCH ×4 (06:00→16:44)
[2017-08-08] MEDS: MEROPENEM 500MG/50 ML (PMX) 50 ML IVPB SCH ×3 (06:08→21:35)
[2017-08-08] MEDS: CHLORHEXIDINE GLUCONATE 15 ML UD CUP MM SCH ×2 (07:39→21:34)
[2017-08-08] MEDS: LANSOPRAZOLE 30 MG CAP GTB SCH (07:40)
[2017-08-08] MEDS: ASCORBIC ACID 500 MG TAB GTB SCH ×2 (07:40→21:34)
[2017-08-08] MEDS: LINAGLIPTIN 5 MG TABLET GTB SCH (07:40)
[2017-08-08] MEDS: MULTIVITAMINS 30 ML CUP GTB SCH (07:40)
[2017-08-08] MEDS: PREGABALIN 25 MG CAP GTB SCH ×2 (07:41→21:34)
[2017-08-08] MEDS: NYSTATIN 30 GM POWDER BTL TOP SCH ×2 (07:41→21:35)
[2017-08-08] MEDS: AMIODARONE 200 MG TAB GTB SCH (07:41)
[2017-08-08] MEDS: COLLAGENASE 30 GM TUBE TOP SCH (07:41)
--- NOTE | 2017-08-08 10:18 | RADRPT ---
PROCEDURE: XR Chest. CLINICAL INDICATION: Shortness of breath. TECHNIQUE: Single frontal view. COMPARISON: 08/07/2017. FINDINGS: The tracheostomy tube and right arm PICC line remain in satisfactory position. There is bilateral pu lmonary air space disease in the mid and lower lung zones, unchanged. The heart is enlarged. There is calcification in the aorta consistent with atherosclerosis. There are moderate bilateral pleural effusions. There is no pneumothorax. IMPRESSION: 1. No change from 08/07/2017. RPTAT: QQ .Pascual Corbin MD, MD Date Time Electronically viewed and signed by .Pascual Corbin MD, MD on 08/08/2017 10:18 .R/
[2017-08-08] MEDS: DEXTROSE 5%-0.45% NACL 1,000 ML IV SCH ×2 (10:24→17:01)
[2017-08-08] MEDS: INSULIN DETEMIR [LEVEMIR] 3ML CART SC SCH ×2 (10:30→22:21)
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
--- NOTE | 2017-08-08 13:18 | CONS ---
Date/Time of Note Date/Time of Note DATE: 08/08/17 TIME: 13:15 Consult Date/Type/Reason Admit Date/Time Jul 28, 2017 at 17:22 Initial Consult Date 08/07/17 Type of Consultation: ID Objective Vital Signs Date Time Temp Pulse Resp B/P Pulse Ox O2 Delivery O2 Flow Rate FiO2 08/08/17 12:44 73 16 100 30 08/08/17 10:45 99.9 08/08/17 10:00 105/48 08/08/17 06:00 Mechanical Ventilator 08/06/17 13:28 6.0 Intake and Output 08/07/17 08/07/17 08/08/17 15:00 23:00 07:00 Intake Total 325 ml 100 ml 50 ml Output Total 30 ml 95 ml 142 ml Balance 295 ml 5 ml -92 ml Results/Medications Result Diagram: 08/08/17 0429 08/08/17 0429 Results 24 hrs Laboratory Tests Test 08/07/17 17:24 08/07/17 22:34 08/08/17 01:00 08/08/17 04:29 Bedside Glucose 111 109 103 White Blood Count 9.5 Red Blood Count 3.09 L Hemoglobin 8.4 L Hematocrit 27.2 L Mean Corpuscular Volume 88.0 Mean Corpuscular Hemoglobin 27.2 L Mean Corpuscular Hemoglobin Concent 30.9 L Red Cell Distribution Width 15.0 H Platelet Count 203 Mean Platelet Volume 10.5 H Neutrophils % 70.3 Lymphocytes % 13.3 L Monocytes % 11.8 H Eosinophils % 3.6 Basophils % 0.6 Nucleated Red Blood Cells % 0.0 Neutrophils # 6.7 Lymphocytes # 1.3 Monocytes # 1.1 H Eosinophils # 0.3 Basophils # 0.1 Nucleated Red Blood Cells # 0.0 Sodium Level 140 Potassium Level 3.8 Chloride Level 109 Carbon Dioxide Level 23 Anion Gap 12 Blood Urea Nitrogen 33 H Creatinine 1.53 H Glucose Level 78 Calcium Level 8.6 Test 08/08/17 05:42 08/08/17 06:06 08/08/17 10:24 Lab Scanned Report BLOOD TRANSFUSION Bedside Glucose 88 96 Medications Current Medications Acetaminophen (Tylenol Liquid) 650 mg Q6H PRN GTB MILD PAIN LEVEL 1-3 Last administered on 08/06/17t 02:01; Admin Dose 650 MG; Start 07/28/17 at 22:30 Amiodarone HCl (Cordarone) 200 mg DAILY GTB Last administered on 08/06/17 08: 38; Admin Dose 200 MG; Start 07/29/17 at 09:00 Atorvastatin Calcium (Lipitor) 20 mg QHS GTB Last administered on 08/07/17 20 :18; Admin Dose 20 MG; Start 07/29/17 at 21:00 Chlorhexidine Gluconate (Peridex) 15 ml BID MM Last administered on 08/07/17 20:18; Admin Dose 15 ML; Start 07/29/17 at 09:00 Hydralazine HCl (Apresoline) 50 mg Q8 PO Last administered on 08/08/17 06:08 ; Admin Dose 50 MG; Start 07/29/17 at 06:00 Hydromorphone HCl (Dilaudid) 1 mg Q3H PRN GTB PAIN 4-07/28 Last administered on 08/05/17 02:58; Admin Dose 1 MG; Start 07/28/17 at 22:30 Hydromorphone HCl (Dilaudid) 2 mg DAILY PRN GTB PAIN Last administered on 08/08 01:43; Admin Dose 2 MG; Start 07/28/17 at 22:30 Lansoprazole (Prevacid) 30 mg DAILY GTB Last administered on 08/06/17 08:38; Admin Dose 30 MG; Start 07/29/17 at 09:00 Linagliptin (Tradjenta) 5 mg DAILY GTB Last administered on 08/06/17 08:39; Admin Dose 5 MG; Start 07/29/17 at 09:00 Loperamide HCl (Imodium Cap) 2 mg Q4H PRN GTB DIARRHEA; Start 07/28/17 at 22: 30 Multivitamins (Multivitamin) 30 ml DAILY GTB Last administered on 08/06/17 08 :39; Admin Dose 30 ML; Start 07/29/17 at 09:00 Insulin Aspart (Novolog Insulin Pen) (Adult SC Insulin - Mild Algorithm)... Q6 SC Last administered on 08/07/17 00:32; Admin Dose 1 UNIT; Start 07/29/17 at 00:00 Miscellaneous Information 1 ea NOTE XX ; Start 07/28/17 at 23:00 Glucose (Glutose) 15 gm Q15M PRN PO DECREASED GLUCOSE; Start 07/28/17 at 23:00 Glucose (Glutose) 22.5 gm Q15M PRN PO DECREASED GLUCOSE; Start 07/28/17 at 23: 00 Dextrose (D50w Syringe) 25 ml Q15M PRN IV DECREASED GLUCOSE; Start 07/28/17 at 23:00 Dextrose (D50w Syringe) 50 ml Q15M PRN IV DECREASED GLUCOSE; Start 07/28/17 at 23:00 Glucagon (Glucagen) 1 mg Q15M PRN IM DECREASED GLUCOSE; Start 07/28/17 at 23: 00 Glucose (Glutose) 15 gm Q15M PRN BUCCAL DECREASED GLUCOSE; Start 07/28/17 at 23:00 Miscellaneous Information (Pending Santyl Order For Wound Care) This patient alonzo... PRN PRN XX WOUND CARE; Start 07/29/17 at 06:30 Ascorbic Acid (Vitamin C) 500 mg BID GTB Last administered on 08/07/17 20:17 ; Admin Dose 500 MG; Start 07/29/17 at 21:30 Collagenase (Santyl) 1 applic DAILY TOP Last administered on 08/05/17 09:19; Admin Dose 1 APPLIC; Start 07/30/17 at 09:00 Nystatin (Nystatin Powder) 1 applic BID TOP Last administered on 08/07/17 20: 17; Admin Dose 1 APPLIC; Start 07/29/17 at 22:30 Epoetin Baudilio (Epogen (Oncology)) 10,000 units We@17 SC Last administered on 17:32; Admin Dose 10,000 UNITS; Start 08/05/17 at 17:00 Hydralazine HCl (Apresoline) 10 mg Q4H PRN IV ELEVATED BLOOD PRESSURE Last administered on 08/04/17 00:27; Admin Dose 10 MG; Start 08/03/17 at 11:51 Ondansetron HCl 4 mg 4 mg Q4H PRN IV NAUSEA AND/OR VOMITING Last administered on 08/06/17 09:14; Admin Dose 4 MG; Start 08/03/17 at 15:00 Dextrose/Sodium Chloride (D5-1/2ns) 1,000 ml @ 50 mls/hr Q20H IV Last administered on 08/07/17 16:55; Admin Dose 50 MLS/HR; Start 08/04/17 at 09:00 Insulin Detemir (Levemir) 10 unit Q12H SC Last administered on 08/07/17 08:37 ; Admin Dose 10 UNIT; Start 08/04/17 at 22:30 Lorazepam (Ativan) 0.5 mg Q6H PRN GTB ANXIETY Last administered on 08/06/17 10:25; Admin Dose 0.5 MG; Start 08/04/17 at 14:30 IV Flush (NS 10 ml) 10 ml PRN PRN IV IV PROTOCOL; Start 08/05/17 at 17:30 Metoclopramide HCl 5 mg 5 mg Q6 IV Last administered on 08/08/17 12:06; Admin Dose 5 MG; Start 08/06/17 at 00:00 Meropenem/Sodium Chloride 50 ml @ 200 mls/hr Q8 IVPB Last administered on 12:06; Admin Dose 200 MLS/HR; Start 08/05/17 at 20:30 Propofol (Diprivan) 100 ml @ 2.337 mls/ hr Q12H IV ; Start 08/06/17 at 17:30 Pregabalin 75 mg 75 mg BID GTB Last administered on 08/07/17 20:18; Admin Dose 75 MG; Start 08/06/17 at 21:00 Vancomycin HCl/ Sodium Chloride (Vancocin/NS) 150 ml @ 75 mls/hr Q24H IVPB ; Start 08/08/17 at 22:00 Assessment/Plan Chief Complaint/Hosp Course SUBJECTIVE: No acute changes overnight. Awake, looks comfortable, T-max 99.9 INDWELLINGS: Trach, PEG, Salazar, right upper extremity PICC line. ANTIMICROBIALS: 1. Vancomycin. 2. Meropenem. PHYSICAL EXAMINATION: GENERAL: This is a chronically ill-appearing, obese, elderly woman who is in no distress. HEENT: Head atraumatic, normocephalic. Sclerae anicteric. Buccal mucosa dry. NECK: Supple. Tracheostomy present. CHEST: Rise symmetrical. Breath sounds with scattered crackles and expiratory wheezes. HEART: S1, S2. ABDOMEN: Soft, bowel tones present. EXTREMITIES: Bilateral lower extremity gangrene. ASSESSMENT: 1. Sepsis. 2. HCAP, possible aspiration pneumonia status post emesis. 3. Urinary tract infection. 4. Severe peripheral vascular disease status post aortoiliac angiogram with LLE runoff. 5. Bilateral lower extremities gangrene. 6. History of cerebrovascular accident. 7. Dysphagia, status post PEG placement. 8. Acute kidney injury PLAN: Hemodynamically stable, kidney function worsening, continue present care, change vancomycin to Zyvox, follow recommendations of specialists DW staff Problems: GABRIELA CHARLES NP Aug 08, 2017 13:18
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
--- NOTE | 2017-08-08 13:36 | CONS ---
Date/Time of Note Date/Time of Note DATE: 08/08/17 TIME: 13:34 Consult Date/Type/Reason Admit Date/Time Jul 28, 2017 at 17:22 Initial Consult Date 08/07/17 Type of Consultation: Pulm/CCM Subjective No events. Objective Vital Signs Date Time Temp Pulse Resp B/P Pulse Ox O2 Delivery O2 Flow Rate FiO2 08/08/17 12:44 73 16 100 30 08/08/17 10:45 99.9 08/08/17 10:00 105/48 08/08/17 06:00 Mechanical Ventilator 08/06/17 13:28 6.0 Intake and Output 08/07/17 08/07/17 08/08/17 15:00 23:00 07:00 Intake Total 325 ml 100 ml 50 ml Output Total 30 ml 95 ml 142 ml Balance 295 ml 5 ml -92 ml Exam HEENT: Neck supple; no JVD; no LAD; + trach CVS: RRR, S1 and S2 CHEST: Coarse BS ABD: Soft, NT, + BS EXT: + LE gangrene Results/Medications Result Diagram: 08/08/179 08/08/17428 Results 24 hrs Laboratory Tests Test 08/07/17 17:24 08/07/17 22:34 08/08/17 01:00 08/08/17 04:29 Bedside Glucose 111 109 103 White Blood Count 9.5 Red Blood Count 3.09 L Hemoglobin 8.4 L Hematocrit 27.2 L Mean Corpuscular Volume 88.0 Mean Corpuscular Hemoglobin 27.2 L Mean Corpuscular Hemoglobin Concent 30.9 L Red Cell Distribution Width 15.0 H Platelet Count 203 Mean Platelet Volume 10.5 H Neutrophils % 70.3 Lymphocytes % 13.3 L Monocytes % 11.8 H Eosinophils % 3.6 Basophils % 0.6 Nucleated Red Blood Cells % 0.0 Neutrophils # 6.7 Lymphocytes # 1.3 Monocytes # 1.1 H Eosinophils # 0.3 Basophils # 0.1 Nucleated Red Blood Cells # 0.0 Sodium Level 140 Potassium Level 3.8 Chloride Level 109 Carbon Dioxide Level 23 Anion Gap 12 Blood Urea Nitrogen 33 H Creatinine 1.53 H Glucose Level 78 Calcium Level 8.6 Test 08/08/17 05:42 08/08/17 06:06 08/08/17 10:24 Lab Scanned Report BLOOD TRANSFUSION Bedside Glucose 88 96 Medications Current Medications Acetaminophen (Tylenol Liquid) 650 mg Q6H PRN GTB MILD PAIN LEVEL 1-3 Last administered on 08/06/17 02:01; Admin Dose 650 MG; Start 07/28/17 at 22:30 Amiodarone HCl (Cordarone) 200 mg DAILY GTB Last administered on 08/06/17 08: 38; Admin Dose 200 MG; Start 07/29/17 at 09:00 Atorvastatin Calcium (Lipitor) 20 mg QHS GTB Last administered on 08/07/17 20 :18; Admin Dose 20 MG; Start 07/29/17 at 21:00 Chlorhexidine Gluconate (Peridex) 15 ml BID MM Last administered on 08/07/17 20:18; Admin Dose 15 ML; Start 07/29/17 at 09:00 Hydralazine HCl (Apresoline) 50 mg Q8 PO Last administered on 08/08/17 06:08 ; Admin Dose 50 MG; Start 07/29/17 at 06:00 Hydromorphone HCl (Dilaudid) 1 mg Q3H PRN GTB PAIN 4-07/28 Last administered on 08/05/17 02:58; Admin Dose 1 MG; Start 07/28/17 at 22:30 Hydromorphone HCl (Dilaudid) 2 mg DAILY PRN GTB PAIN Last administered on 08/08 01:43; Admin Dose 2 MG; Start 07/28/17 at 22:30 Lansoprazole (Prevacid) 30 mg DAILY GTB Last administered on 08/06/17 08:38; Admin Dose 30 MG; Start 07/29/17 at 09:00 Linagliptin (Tradjenta) 5 mg DAILY GTB Last administered on 08/06/17 08:39; Admin Dose 5 MG; Start 07/29/17 at 09:00 Loperamide HCl (Imodium Cap) 2 mg Q4H PRN GTB DIARRHEA; Start 07/28/17 at 22: 30 Multivitamins (Multivitamin) 30 ml DAILY GTB Last administered on 08/06/17 08 :39; Admin Dose 30 ML; Start 07/29/17 at 09:00 Insulin Aspart (Novolog Insulin Pen) (Adult SC Insulin - Mild Algorithm)... Q6 SC Last administered on 08/07/17 00:32; Admin Dose 1 UNIT; Start 07/29/17 at 00:00 Miscellaneous Information 1 ea NOTE XX ; Start 07/28/17 at 23:00 Glucose (Glutose) 15 gm Q15M PRN PO DECREASED GLUCOSE; Start 07/28/17 at 23:00 Glucose (Glutose) 22.5 gm Q15M PRN PO DECREASED GLUCOSE; Start 07/28/17 at 23: 00 Dextrose (D50w Syringe) 25 ml Q15M PRN IV DECREASED GLUCOSE; Start 07/28/17 at 23:00 Dextrose (D50w Syringe) 50 ml Q15M PRN IV DECREASED GLUCOSE; Start 07/28/17 at 23:00 Glucagon (Glucagen) 1 mg Q15M PRN IM DECREASED GLUCOSE; Start 07/28/17 at 23: 00 Glucose (Glutose) 15 gm Q15M PRN BUCCAL DECREASED GLUCOSE; Start 07/28/17 at 23:00 Miscellaneous Information (Pending Santyl Order For Wound Care) This patient alonzo... PRN PRN XX WOUND CARE; Start 07/29/17 at 06:30 Ascorbic Acid (Vitamin C) 500 mg BID GTB Last administered on 08/07/17 20:17 ; Admin Dose 500 MG; Start 07/29/17 at 21:30 Collagenase (Santyl) 1 applic DAILY TOP Last administered on 08/05/17 09:19; Admin Dose 1 APPLIC; Start 07/30/17 at 09:00 Nystatin (Nystatin Powder) 1 applic BID TOP Last administered on 08/07/17 20: 17; Admin Dose 1 APPLIC; Start 07/29/17 at 22:30 Epoetin Baudilio (Epogen (Oncology)) 10,000 units We@17 SC Last administered on 17:32; Admin Dose 10,000 UNITS; Start 08/05/17 at 17:00 Hydralazine HCl (Apresoline) 10 mg Q4H PRN IV ELEVATED BLOOD PRESSURE Last administered on 08/04/17 00:27; Admin Dose 10 MG; Start 08/03/17 at 11:51 Ondansetron HCl 4 mg 4 mg Q4H PRN IV NAUSEA AND/OR VOMITING Last administered on 08/06/17 09:14; Admin Dose 4 MG; Start 08/03/17 at 15:00 Dextrose/Sodium Chloride (D5-1/2ns) 1,000 ml @ 50 mls/hr Q20H IV Last administered on 08/07/17 16:55; Admin Dose 50 MLS/HR; Start 08/04/17 at 09:00 Insulin Detemir (Levemir) 10 unit Q12H SC Last administered on 08/07/17 08:37 ; Admin Dose 10 UNIT; Start 08/04/17 at 22:30 Lorazepam (Ativan) 0.5 mg Q6H PRN GTB ANXIETY Last administered on 08/06/17 10:25; Admin Dose 0.5 MG; Start 08/04/17 at 14:30 IV Flush (NS 10 ml) 10 ml PRN PRN IV IV PROTOCOL; Start 08/05/17 at 17:30 Metoclopramide HCl 5 mg 5 mg Q6 IV Last administered on 08/08/17 12:06; Admin Dose 5 MG; Start 08/06/17 at 00:00 Meropenem/Sodium Chloride 50 ml @ 200 mls/hr Q8 IVPB Last administered on 12:06; Admin Dose 200 MLS/HR; Start 08/05/17 at 20:30 Propofol (Diprivan) 100 ml @ 2.337 mls/ hr Q12H IV ; Start 08/06/17 at 17:30 Pregabalin (Lyrica) 75 mg BID GTB Last administered on 08/07/17 20:18; Admin Dose 75 MG; Start 08/06/17 at 21:00 Linezolid (Zyvox) 600 mg BID PO ; Start 08/08/17 at 14:00 Assessment/Plan Additional Assessment/Plan IMP: 1. Sepsis 2. Possible HCPA vs Aspiration 3. Urosepsis 4. Severe PAD/PVD 5. Acute kidney injury 6. Anemia RECS: 1. Vent support 2. Maintain MAP > 65 mm Hg 3. Follow lactates 4. Abx per ID 35 min cc time DUGLAS AHMADI MD Aug 08, 2017 13:36
[2017-08-08] MEDS ORDERED: ZYVOX 600 MG TAB PO SCH (14:00)
[2017-08-08] MEDS: ACETAMINOPHEN 650MG/20.3ML CUP GTB PRN (14:07)
--- NOTE | 2017-08-08 14:07 | PN ---
Date/Time of Note Date/Time of Note DATE: 08/08/17 TIME: 14:05 Assessment/Plan Lines/Catheters IV Catheter Type (from [facility]): PICC Line Salazar in Place (from [facility]): Yes Assessment/Plan Chief Complaint/Hosp Course -Bilateral lower extremity atherosclerosis with gangrene: It seems the patient has plethora of medical conditions with gangrene of the lower extremities which at the moment, they are dry and stable. S/P Aortoiliac angiogram with LLE runoff -Considering that she has been bedridden for the past few months and ambulation may be of question, there may be limited options for vascular intervention. Patient would like to have everything done in order to provide limb salvage, but I did provide realistic outcomes and goals of what we can do for her. There was suggestion of a possible angiogram; However given her respiratory status at the moment will await optimization prior to intervention -Continue her local wound care per our podiatry colleagues. -Optimize vascular status (BP meds, diet, nutrition, exercise, sugar control, antiplatelets). -Discussed findings, plan and management with the patient and she understands. -Thank you for allowing us to partake in the care of your patient. Please call with any questions. Problems: Subjective 24 Hr Interval Summary no new vascular events overnight Exam/Review of Systems Vital Signs Vitals Vital Signs Date Time Temp Pulse Resp B/P Pulse Ox O2 Delivery O2 Flow Rate FiO2 08/08/17 12:44 73 16 100 30 08/08/17 10:45 99.9 08/08/17 10:00 105/48 08/08/17 06:00 Mechanical Ventilator 08/06/17 13:28 6.0 Intake and Output 08/07/17 08/07/17 08/08/17 15:00 23:00 07:00 Intake Total 325 ml 100 ml 50 ml Output Total 30 ml 95 ml 142 ml Balance 295 ml 5 ml -92 ml Exam Free Text/Dictation GENERAL: On vent via trach, hard of hearing. CARDIOVASCULAR: S1, S2 present PULMONARY: Coarse BS bilaterally, crackles at the bases CARDIOVASCULAR: S1, S2 present. No murmurs. ABDOMEN: Soft, nontender, nondistended. Bowel sounds positive. Truncal obesity. G-tube intact and dry. LOWER EXTREMITIES: Right lower extremity, groin soft, palpable femoral pulse, nonpalpable pedal pulse . Motor, sensory limited as patient has been bedridden for the past 3 months, able to move her knee and her ankle and elevate her leg; however, very limited motions. Ulcers on her knee and calf, surgical scars in the lower leg from previous incisions, gangrene of the lateral aspect of the fifth toe. Left lower extremity palpable femoral pulse, nonpalpable pedal pulse. Motor and sensory limited, patient is able to bend her knee slightly and perform a leg raise. 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 Results Result Diagram: 08/08/17 0429 08/08/17 0429 HERBERT FULTON MD Aug 08, 2017 14:06
[2017-08-08] MEDS ORDERED: POTASSIUM CHLORIDE 50 ML IVPB ONE (17:00)
[2017-08-08] MEDS: ZYVOX 600 MG TAB GTB SCH (21:34)
[2017-08-08] MEDS: ATORVASTATIN 20 MG TAB GTB SCH (21:35)
[2017-08-08] MEDS ORDERED: VANCOMYCIN 750 MG in SOD CHLORIDE 0.9% 150 ML IVPB SCH (22:00)
[2017-08-09] VITALS (34 sets, daily range): BP systolic 105–150; BP diastolic 48–65; PULSE 60–88; RESP 14–70
[2017-08-09] MEDS: METOCLOPRAMIDE 10 MG INJ IV SCH ×5 (01:29→23:48)
[2017-08-09] MEDS: IPRATROPIUM (HFA) 12.9 GM INHALER INH SCH ×4 (02:00→19:23)
[2017-08-09] MEDS: LEVALBUTEROL (HFA) 15 GM INHALER INH SCH ×4 (02:00→19:23)
[2017-08-09 04:55] LABS: CALCIUM 8.2 mg/dl (8.4-10.2); CREATININE 2.08 mg/dl (0.44-1.00); POTASSIUM 4.1 mmol/L (3.5-5.1)
[2017-08-09 05:09] LABS: BASOPHILS % 0.3 % (0.0-2.0); EOSINOPHILS # 0.3 10^3/ul (0.0-0.5); EOSINOPHILS % 3.8 % (0.0-7.0); HEMATOCRIT 25.8 % (37.0-47.0); HEMOGLOBIN 8.3 g/dl (12.0-16.0); LYMPHOCYTES # 1.2 10^3/ul (0.8-2.9); LYMPHOCYTES % 13.9 % (15.0-51.0); MEAN CORPUSCULAR HEMOGLOBIN 27.9 pg (29.0-33.0); MEAN CORPUSCULAR HGB CONC 32.2 g/dl (32.0-37.0); MEAN CORPUSCULAR VOLUME 86.9 fl (82.0-101.0); MEAN PLATELET VOLUME 10.5 fl (7.4-10.4); MONOCYTE # 1.1 10^3/ul (0.3-0.9); MONOCYTES % 12.1 % (0.0-11.0); NEUTROPHILS % 69.4 % (39.0-77.0); PLATELET COUNT 194 10^3/UL (140-415); RED BLOOD COUNT 2.97 10^6/ul (4.20-5.40); RED CELL DISTRIBUTION WIDTH 14.9 % (11.5-14.5); WHITE BLOOD COUNT 8.7 10^3/ul (4.8-10.8)
[2017-08-09] MEDS: PROPOFOL 100 ML IV SCH (05:30)
[2017-08-09] MEDS: MEROPENEM 500MG/50 ML (PMX) 50 ML IVPB SCH ×3 (05:54→22:07)
[2017-08-09] MEDS: Insulin NOVOLOG SS MILD Algorithm (NPO/TPN/ENTERAL FEEDS) SC SCH ×5 (05:57→23:48)
[2017-08-09] MEDS: LANSOPRAZOLE 30 MG CAP GTB SCH (09:14)
[2017-08-09] MEDS: PREGABALIN 25 MG CAP GTB SCH ×2 (09:14→20:29)
[2017-08-09] MEDS: LINAGLIPTIN 5 MG TABLET GTB SCH (09:14)
[2017-08-09] MEDS: AMIODARONE 200 MG TAB GTB SCH (09:14)
[2017-08-09] MEDS: ASCORBIC ACID 500 MG TAB GTB SCH ×2 (09:14→20:29)
[2017-08-09] MEDS: MULTIVITAMINS 30 ML CUP GTB SCH (09:15)
[2017-08-09] MEDS: CHLORHEXIDINE GLUCONATE 15 ML UD CUP MM SCH ×2 (09:15→20:29)
[2017-08-09] MEDS: ZYVOX 600 MG TAB GTB SCH ×2 (09:15→20:30)
[2017-08-09] MEDS: HYDROmorphONE 2 MG TAB GTB PRN (09:15)
[2017-08-09] MEDS: NYSTATIN 30 GM POWDER BTL TOP SCH ×2 (09:15→20:30)
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
--- NOTE | 2017-08-09 11:46 | CONS ---
Date/Time of Note Date/Time of Note DATE: 08/09/17 TIME: 11:44 Consult Date/Type/Reason Admit Date/Time Jul 28, 2017 at 17:22 Initial Consult Date 08/07/17 Type of Consultation: Pulm/CCM Ordering Provider: MICHELLE CLIFTON MD Subjective No events. On vent. Objective Vital Signs Date Time Temp Pulse Resp B/P Pulse Ox O2 Delivery O2 Flow Rate FiO2 08/09/17 08:00 73 08/09/17 06:00 24 150/64 100 08/09/17 05:20 30 08/09/17 04:00 98.0 08/08/17 06:00 Mechanical Ventilator 08/06/17 13:28 6.0 Intake and Output 08/08/17 08/08/17 08/09/17 15:00 23:00 07:00 Intake Total 450 ml 150 ml 550 ml Output Total 125 ml 13 ml 100 ml Balance 325 ml 137 ml 450 ml Exam HEENT: Neck supple; no JVD; no LAD; + trach CVS: RRR, S1 and S2 CHEST: Coarse BS ABD: Soft, NT, + BS EXT: + LE gangrene Results/Medications Result Diagram: 08/09/17 0400 08/09/17 0400 Results 24 hrs Laboratory Tests Test 08/08/17 16:32 08/08/17 21:32 08/09/17 01:28 08/09/17 04:00 Bedside Glucose 136 110 124 White Blood Count 8.7 Red Blood Count 2.97 L Hemoglobin 8.3 L Hematocrit 25.8 L Mean Corpuscular Volume 86.9 Mean Corpuscular Hemoglobin 27.9 L Mean Corpuscular Hemoglobin Concent 32.2 Red Cell Distribution Width 14.9 H Platelet Count 194 Mean Platelet Volume 10.5 H Neutrophils % 69.4 Lymphocytes % 13.9 L Monocytes % 12.1 H Eosinophils % 3.8 Basophils % 0.3 Nucleated Red Blood Cells % 0.0 Neutrophils # 6.0 Lymphocytes # 1.2 Monocytes # 1.1 H Eosinophils # 0.3 Basophils # 0.0 Nucleated Red Blood Cells # 0.0 Sodium Level 138 Potassium Level 4.1 Chloride Level 107 Carbon Dioxide Level 24 Anion Gap 11 Blood Urea Nitrogen 33 H Creatinine 2.08 H Glucose Level 108 Calcium Level 8.2 L Test 08/09/17 05:56 Bedside Glucose 126 Medications Current Medications Acetaminophen (Tylenol Liquid) 650 mg Q6H PRN GTB MILD PAIN LEVEL 1-3 Last administered on 08/08/17 14:07; Admin Dose 650 MG; Start 07/28/17 at 22:30 Amiodarone HCl (Cordarone) 200 mg DAILY GTB Last administered on 08/09/17 09: 14; Admin Dose 200 MG; Start 07/29/17 at 09:00 Atorvastatin Calcium (Lipitor) 20 mg QHS GTB Last administered on 08/08/17 21 :35; Admin Dose 20 MG; Start 07/29/17 at 21:00 Chlorhexidine Gluconate (Peridex) 15 ml BID MM Last administered on 08/09/17 09:15; Admin Dose 15 ML; Start 07/29/17 at 09:00 Hydralazine HCl (Apresoline) 50 mg Q8 PO Last administered on 08/09/17 05:54 ; Admin Dose 50 MG; Start 07/29/17 at 06:00 Hydromorphone HCl (Dilaudid) 1 mg Q3H PRN GTB PAIN 4-10 Last administered on 08/09/17 09:15; Admin Dose 1 MG; Start 07/28/17 at 22:30 Hydromorphone HCl (Dilaudid) 2 mg DAILY PRN GTB PAIN Last administered on 08/08 14:08; Admin Dose 2 MG; Start 07/28/17 at 22:30 Lansoprazole (Prevacid) 30 mg DAILY GTB Last administered on 08/09/17 09:14; Admin Dose 30 MG; Start 07/29/17 at 09:00 Linagliptin (Tradjenta) 5 mg DAILY GTB Last administered on 08/09/17 09:14; Admin Dose 5 MG; Start 07/29/17 at 09:00 Loperamide HCl (Imodium Cap) 2 mg Q4H PRN GTB DIARRHEA; Start 07/28/17 at 22: 30 Multivitamins (Multivitamin) 30 ml DAILY GTB Last administered on 08/09/17 09 :15; Admin Dose 30 ML; Start 07/29/17 at 09:00 Insulin Aspart (Novolog Insulin Pen) (Adult SC Insulin - Mild Algorithm)... Q6 SC Last administered on 08/07/17 00:32; Admin Dose 1 UNIT; Start 07/29/17 at 00:00 Miscellaneous Information 1 ea NOTE XX ; Start 07/28/17 at 23:00 Glucose (Glutose) 15 gm Q15M PRN PO DECREASED GLUCOSE; Start 07/28/17 at 23:00 Glucose (Glutose) 22.5 gm Q15M PRN PO DECREASED GLUCOSE; Start 07/28/17 at 23: 00 Dextrose (D50w Syringe) 25 ml Q15M PRN IV DECREASED GLUCOSE; Start 07/28/17 at 23:00 Dextrose (D50w Syringe) 50 ml Q15M PRN IV DECREASED GLUCOSE; Start 07/28/17 at 23:00 Glucagon (Glucagen) 1 mg Q15M PRN IM DECREASED GLUCOSE; Start 07/28/17 at 23: 00 Glucose (Glutose) 15 gm Q15M PRN BUCCAL DECREASED GLUCOSE; Start 07/28/17 at 23:00 Miscellaneous Information (Pending Santyl Order For Wound Care) This patient alonzo... PRN PRN XX WOUND CARE; Start 07/29/17 at 06:30 Ascorbic Acid (Vitamin C) 500 mg BID GTB Last administered on 08/09/17 09:14 ; Admin Dose 500 MG; Start 07/29/17 at 21:30 Collagenase (Santyl) 1 applic DAILY TOP Last administered on 08/05/17 09:19; Admin Dose 1 APPLIC; Start 07/30/17 at 09:00 Nystatin (Nystatin Powder) 1 applic BID TOP Last administered on 08/09/17 09: 15; Admin Dose 1 APPLIC; Start 07/29/17 at 22:30 Epoetin Baudilio (Epogen (Oncology)) 10,000 units We@17 SC Last administered on 17:32; Admin Dose 10,000 UNITS; Start 08/05/17 at 17:00 Hydralazine HCl (Apresoline) 10 mg Q4H PRN IV ELEVATED BLOOD PRESSURE Last administered on 08/04/17 00:27; Admin Dose 10 MG; Start 08/03/17 at 11:51 Ondansetron HCl 4 mg 4 mg Q4H PRN IV NAUSEA AND/OR VOMITING Last administered on 08/06/17 09:14; Admin Dose 4 MG; Start 08/03/17 at 15:00 Dextrose/Sodium Chloride (D5-1/2ns) 1,000 ml @ 50 mls/hr Q20H IV Last administered on 08/08/17 17:01; Admin Dose 50 MLS/HR; Start 08/04/17 at 09:00 Lorazepam (Ativan) 0.5 mg Q6H PRN GTB ANXIETY Last administered on 08/06/17 10:25; Admin Dose 0.5 MG; Start 08/04/17 at 14:30 IV Flush (NS 10 ml) 10 ml PRN PRN IV IV PROTOCOL; Start 08/05/17 at 17:30 Metoclopramide HCl 5 mg 5 mg Q6 IV Last administered on 08/09/17 05:54; Admin Dose 5 MG; Start 08/06/17 at 00:00 Meropenem/Sodium Chloride (Merrem 500mg/50 ml(Pmx)) 50 ml @ 200 mls/hr Q8 IVPB Last administered on 08/09/17 05:54; Admin Dose 200 MLS/HR; Start 08/05/17 at 20:30 Pregabalin (Lyrica) 75 mg BID GTB Last administered on 08/09/17 09:14; Admin Dose 75 MG; Start 08/06/17 at 21:00 Linezolid (Zyvox) 600 mg BID GTB Last administered on 08/09/17 09:15; Admin Dose 600 MG; Start 08/08/17 at 14:00 Insulin Detemir (Levemir) 10 unit Q12H SC ; Start 08/09/17 at 12:00 Assessment/Plan Additional Assessment/Plan IMP: 1. Sepsis 2. Possible HCAP vs Aspiration 3. Urosepsis 4. Severe PAD/PVD 5. Acute kidney injury 6. Anemia RECS: 1. Vent support 2. Maintain MAP > 65 mm Hg 3. Follow lactates 4. Abx per ID 5. TF/Free H20 35 min cc time DUGLAS AHMADI MD Aug 09, 2017 11:46
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
[2017-08-09] MEDS: INSULIN DETEMIR [LEVEMIR] 3ML CART SC SCH ×2 (12:51→23:46)
--- NOTE | 2017-08-09 12:52 | PN ---
Date/Time of Note Date/Time of Note DATE: 08/09/17 TIME: 12:50 Assessment/Plan Lines/Catheters IV Catheter Type (from [facility]): PICC Line Salazar in Place (from [facility]): Yes Assessment/Plan Chief Complaint/Hosp Course -Bilateral lower extremity atherosclerosis with gangrene: It seems the patient has plethora of medical conditions with gangrene of the lower extremities which at the moment are dry and stable. -S/P Aortoiliac angiogram with LLE runoff -Considering that she has been bedridden for the past few months and ambulation may be of question, there may be limited options for vascular intervention. Patient would like to have everything done in order to provide limb salvage, but I did provide realistic outcomes and goals of what we can do for her. There was suggestion of a possible angiogram/intervention; However given her respiratory/medical status at the moment will await optimization/clearance prior to any vascular intervention -Continue her local wound care per our podiatry colleagues. -Optimize vascular status (BP meds, diet, nutrition, exercise, sugar control, antiplatelets). -Discussed findings, plan and management with the patient and she understands. -Thank you for allowing us to partake in the care of your patient. Please call with any questions. Problems: Subjective 24 Hr Interval Summary now new vascular events overnight Exam/Review of Systems Vital Signs Vitals Vital Signs Date Time Temp Pulse Resp B/P Pulse Ox O2 Delivery O2 Flow Rate FiO2 08/09/17 12:00 72 08/09/17 06:00 24 150/64 100 08/09/17 05:20 30 08/09/17 04:00 98.0 08/08/17 06:00 Mechanical Ventilator 08/06/17 13:28 6.0 Intake and Output 08/08/17 08/08/17 08/09/17 15:00 23:00 07:00 Intake Total 450 ml 150 ml 550 ml Output Total 125 ml 13 ml 100 ml Balance 325 ml 137 ml 450 ml Exam Free Text/Dictation GENERAL: On vent via trach, hard of hearing. CARDIOVASCULAR: S1, S2 present PULMONARY: Coarse BS bilaterally, crackles at the bases CARDIOVASCULAR: S1, S2 present. No murmurs. ABDOMEN: Soft, nontender, nondistended. Bowel sounds positive. Truncal obesity. G-tube intact and dry. LOWER EXTREMITIES: Right lower extremity, groin soft, palpable femoral pulse, nonpalpable pedal pulse . Motor, sensory limited as patient has been bedridden for the past 3 months, able to move her knee and her ankle and elevate her leg; however, very limited motions. Ulcers on her knee and calf, surgical scars in the lower leg from previous incisions, gangrene of the lateral aspect of the fifth toe. Left lower extremity palpable femoral pulse, nonpalpable pedal pulse. Motor and sensory limited, patient is able to bend her knee slightly and perform a leg raise. 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 Results Result Diagram: 08/09/17 0400 08/09/17 0400 HERBERT FULTON MD Aug 09, 2017 12:52
[2017-08-09] MEDS: COLLAGENASE 30 GM TUBE TOP SCH (14:52)
[2017-08-09] MEDS: DEXTROSE 5%-0.45% NACL 1,000 ML IV SCH (14:56)
--- NOTE | 2017-08-09 19:01 | CONS ---
Date/Time of Note Date/Time of Note DATE: 08/09/17 TIME: 19:00 Consult Date/Type/Reason Admit Date/Time Jul 28, 2017 at 17:22 Initial Consult Date 08/07/17 Type of Consultation: ID Ordering Provider: MICHELLE CLIFTON MD Objective Vital Signs Date Time Temp Pulse Resp B/P Pulse Ox O2 Delivery O2 Flow Rate FiO2 08/09/17 18:00 65 26 119/57 100 Mechanical Ventilator 08/09/17 17:05 30 08/09/17 16:00 98.8 08/06/17 13:28 6.0 Intake and Output 08/08/17 08/08/17 08/09/17 14:59 22:59 06:59 Intake Total 450 ml 200 ml 550 ml Output Total 125 ml 13 ml 100 ml Balance 325 ml 187 ml 450 ml Results/Medications Result Diagram: 08/09/17 0400 08/09/17 0400 Results 24 hrs Laboratory Tests Test 08/08/17 21:32 08/09/17 01:28 08/09/17 04:00 08/09/17 05:56 Bedside Glucose 110 124 126 White Blood Count 8.7 Red Blood Count 2.97 L Hemoglobin 8.3 L Hematocrit 25.8 L Mean Corpuscular Volume 86.9 Mean Corpuscular Hemoglobin 27.9 L Mean Corpuscular Hemoglobin Concent 32.2 Red Cell Distribution Width 14.9 H Platelet Count 194 Mean Platelet Volume 10.5 H Neutrophils % 69.4 Lymphocytes % 13.9 L Monocytes % 12.1 H Eosinophils % 3.8 Basophils % 0.3 Nucleated Red Blood Cells % 0.0 Neutrophils # 6.0 Lymphocytes # 1.2 Monocytes # 1.1 H Eosinophils # 0.3 Basophils # 0.0 Nucleated Red Blood Cells # 0.0 Sodium Level 138 Potassium Level 4.1 Chloride Level 107 Carbon Dioxide Level 24 Anion Gap 11 Blood Urea Nitrogen 33 H Creatinine 2.08 H Glucose Level 108 Calcium Level 8.2 L Test 08/09/17 12:44 08/09/17 18:22 Bedside Glucose 152 137 Medications Current Medications Acetaminophen (Tylenol Liquid) 650 mg Q6H PRN GTB MILD PAIN LEVEL 1-3 Last administered on 08/08/17t 14:07; Admin Dose 650 MG; Start 07/28/17 at 22:30 Amiodarone HCl (Cordarone) 200 mg DAILY GTB Last administered on 08/09/17 09: 14; Admin Dose 200 MG; Start 07/29/17 at 09:00 Atorvastatin Calcium (Lipitor) 20 mg QHS GTB Last administered on 08/08/17 21 :35; Admin Dose 20 MG; Start 07/29/17 at 21:00 Chlorhexidine Gluconate (Peridex) 15 ml BID MM Last administered on 08/09/17 09:15; Admin Dose 15 ML; Start 07/29/17 at 09:00 Hydralazine HCl (Apresoline) 50 mg Q8 PO Last administered on 08/09/17 14:52 ; Admin Dose 50 MG; Start 07/29/17 at 06:00 Hydromorphone HCl (Dilaudid) 1 mg Q3H PRN GTB PAIN 4-07/28 Last administered on 08/09/17 09:15; Admin Dose 1 MG; Start 07/28/17 at 22:30 Hydromorphone HCl (Dilaudid) 2 mg DAILY PRN GTB PAIN Last administered on 08/08 14:08; Admin Dose 2 MG; Start 07/28/17 at 22:30 Lansoprazole (Prevacid) 30 mg DAILY GTB Last administered on 08/09/17 09:14; Admin Dose 30 MG; Start 07/29/17 at 09:00 Linagliptin (Tradjenta) 5 mg DAILY GTB Last administered on 08/09/17 09:14; Admin Dose 5 MG; Start 07/29/17 at 09:00 Loperamide HCl (Imodium Cap) 2 mg Q4H PRN GTB DIARRHEA; Start 07/28/17 at 22: 30 Multivitamins (Multivitamin) 30 ml DAILY GTB Last administered on 08/09/17 09 :15; Admin Dose 30 ML; Start 07/29/17 at 09:00 Insulin Aspart (Novolog Insulin Pen) (Adult SC Insulin - Mild Algorithm)... Q6 SC Last administered on 08/09/17 12:50; Admin Dose 1 UNIT; Start 07/29/17 at 00:00 Miscellaneous Information 1 ea NOTE XX ; Start 07/28/17 at 23:00 Glucose (Glutose) 15 gm Q15M PRN PO DECREASED GLUCOSE; Start 07/28/17 at 23:00 Glucose (Glutose) 22.5 gm Q15M PRN PO DECREASED GLUCOSE; Start 07/28/17 at 23: 00 Dextrose (D50w Syringe) 25 ml Q15M PRN IV DECREASED GLUCOSE; Start 07/28/17 at 23:00 Dextrose (D50w Syringe) 50 ml Q15M PRN IV DECREASED GLUCOSE; Start 07/28/17 at 23:00 Glucagon (Glucagen) 1 mg Q15M PRN IM DECREASED GLUCOSE; Start 07/28/17 at 23: 00 Glucose (Glutose) 15 gm Q15M PRN BUCCAL DECREASED GLUCOSE; Start 07/28/17 at 23:00 Miscellaneous Information (Pending Santyl Order For Wound Care) This patient alonzo... PRN PRN XX WOUND CARE; Start 07/29/17 at 06:30 Ascorbic Acid (Vitamin C) 500 mg BID GTB Last administered on 08/09/17 09:14 ; Admin Dose 500 MG; Start 07/29/17 at 21:30 Collagenase (Santyl) 1 applic DAILY TOP Last administered on 08/09/17 14:52; Admin Dose 1 APPLIC; Start 07/30/17 at 09:00 Nystatin (Nystatin Powder) 1 applic BID TOP Last administered on 08/09/17 09: 15; Admin Dose 1 APPLIC; Start 07/29/17 at 22:30 Epoetin Baudilio (Epogen (Oncology)) 10,000 units We@17 SC Last administered on 17:32; Admin Dose 10,000 UNITS; Start 08/05/17 at 17:00 Hydralazine HCl (Apresoline) 10 mg Q4H PRN IV ELEVATED BLOOD PRESSURE Last administered on 08/04/17 00:27; Admin Dose 10 MG; Start 08/03/17 at 11:51 Ondansetron HCl 4 mg 4 mg Q4H PRN IV NAUSEA AND/OR VOMITING Last administered on 08/06/17 09:14; Admin Dose 4 MG; Start 08/03/17 at 15:00 Dextrose/Sodium Chloride (D5-1/2ns) 1,000 ml @ 50 mls/hr Q20H IV Last administered on 08/09/17 14:56; Admin Dose 50 MLS/HR; Start 08/04/17 at 09:00 Lorazepam (Ativan) 0.5 mg Q6H PRN GTB ANXIETY Last administered on 08/06/17 10:25; Admin Dose 0.5 MG; Start 08/04/17 at 14:30 IV Flush (NS 10 ml) 10 ml PRN PRN IV IV PROTOCOL; Start 08/05/17 at 17:30 Metoclopramide HCl 5 mg 5 mg Q6 IV Last administered on 08/09/17 18:23; Admin Dose 5 MG; Start 08/06/17 at 00:00 Meropenem/Sodium Chloride (Merrem 500mg/50 ml(Pmx)) 50 ml @ 200 mls/hr Q8 IVPB Last administered on 08/09/17 14:52; Admin Dose 200 MLS/HR; Start 08/05/17 at 20:30 Pregabalin (Lyrica) 75 mg BID GTB Last administered on 08/09/17 09:14; Admin Dose 75 MG; Start 08/06/17 at 21:00 Linezolid (Zyvox) 600 mg BID GTB Last administered on 08/09/17 09:15; Admin Dose 600 MG; Start 08/08/17 at 14:00 Insulin Detemir (Levemir) 10 unit Q12H SC Last administered on 08/09/17 12:51 ; Admin Dose 10 UNIT; Start 08/09/17 at 12:00 Assessment/Plan Chief Complaint/Hosp Course SUBJECTIVE: No acute changes overnight. Looks comfortable comfortabel, on/off low grade temps INDWELLINGS: Trach, PEG, Salazar, right upper extremity PICC line. ANTIMICROBIALS: 1. Zyvox. 2. Meropenem. PHYSICAL EXAMINATION: GENERAL: This is a chronically ill-appearing, obese, elderly woman who is in no distress. HEENT: Head atraumatic, normocephalic. Sclerae anicteric. Buccal mucosa dry. NECK: Supple. Tracheostomy present. CHEST: Rise symmetrical. Breath sounds with scattered crackles and expiratory wheezes. HEART: S1, S2. ABDOMEN: Soft, bowel tones present. EXTREMITIES: Bilateral lower extremity gangrene. ASSESSMENT: 1. Sepsis. 2. HCAP, possible aspiration pneumonia status post emesis. 3. Urinary tract infection. 4. Severe peripheral vascular disease status post aortoiliac angiogram with LLE runoff. 5. Bilateral lower extremities gangrene. 6. History of cerebrovascular accident. 7. Dysphagia, status post PEG placement. 8. Acute kidney injury==> worsening PLAN: Hemodynamically stable, kidney function getting worse, Vanco changed to Zyvox, continue present care, follow recommendations of specialists DW staff Problems: GABRIELA CHARLES NP Aug 09, 2017 19:01
[2017-08-09] MEDS: ATORVASTATIN 20 MG TAB GTB SCH (20:29)
[2017-08-10] VITALS (40 sets, daily range): BP systolic 96–137; BP diastolic 46–63; PULSE 53–65; RESP 16–31
[2017-08-10] MEDS: IPRATROPIUM (HFA) 12.9 GM INHALER INH SCH ×4 (01:43→19:35)
[2017-08-10] MEDS: LEVALBUTEROL (HFA) 15 GM INHALER INH SCH ×4 (01:43→19:34)
[2017-08-10] MEDS: ACETAMINOPHEN 650MG/20.3ML CUP GTB PRN ×4 (03:31→22:12)
[2017-08-10] MEDS: METOCLOPRAMIDE 10 MG INJ IV SCH ×3 (06:00→17:16)
[2017-08-10] MEDS: Insulin NOVOLOG SS MILD Algorithm (NPO/TPN/ENTERAL FEEDS) SC SCH (06:00)
[2017-08-10] MEDS: MEROPENEM 500MG/50 ML (PMX) 50 ML IVPB SCH ×2 (06:45→20:34)
[2017-08-10 08:21] LABS: BASOPHILS % 0.3 % (0.0-2.0); EOSINOPHILS # 0.4 10^3/ul (0.0-0.5); EOSINOPHILS % 5.4 % (0.0-7.0); HEMATOCRIT 23.4 % (37.0-47.0); HEMOGLOBIN 7.5 g/dl (12.0-16.0); LYMPHOCYTES # 1.1 10^3/ul (0.8-2.9); LYMPHOCYTES % 15.5 % (15.0-51.0); MEAN CORPUSCULAR HGB CONC 32.1 g/dl (32.0-37.0); MEAN CORPUSCULAR VOLUME 87.3 fl (82.0-101.0); MEAN PLATELET VOLUME 10.3 fl (7.4-10.4); MONOCYTES % 14.9 % (0.0-11.0); NEUTROPHIL # 4.3 10^3/ul (1.6-7.5); NEUTROPHILS % 63.3 % (39.0-77.0); PLATELET COUNT 153 10^3/UL (140-415); RED BLOOD COUNT 2.68 10^6/ul (4.20-5.40); RED CELL DISTRIBUTION WIDTH 15.2 % (11.5-14.5); WHITE BLOOD COUNT 6.8 10^3/ul (4.8-10.8)
[2017-08-10] MEDS: PREGABALIN 25 MG CAP GTB SCH ×2 (08:29→20:34)
[2017-08-10] MEDS: CHLORHEXIDINE GLUCONATE 15 ML UD CUP MM SCH ×2 (08:29→20:33)
[2017-08-10] MEDS: MULTIVITAMINS 30 ML CUP GTB SCH (08:29)
[2017-08-10] MEDS: LINAGLIPTIN 5 MG TABLET GTB SCH (08:30)
[2017-08-10] MEDS: LANSOPRAZOLE 30 MG CAP GTB SCH (08:30)
[2017-08-10] MEDS: ZYVOX 600 MG TAB GTB SCH ×2 (08:30→20:33)
[2017-08-10] MEDS: NYSTATIN 30 GM POWDER BTL TOP SCH ×2 (08:30→20:38)
[2017-08-10] MEDS: COLLAGENASE 30 GM TUBE TOP SCH (08:30)
[2017-08-10] MEDS: ASCORBIC ACID 500 MG TAB GTB SCH ×2 (08:30→20:33)
[2017-08-10 08:48] LABS: CALCIUM 8.1 mg/dl (8.4-10.2); CREATININE 2.66 mg/dl (0.44-1.00); POTASSIUM 4.3 mmol/L (3.5-5.1)
[2017-08-10] MEDS: AMIODARONE 200 MG TAB GTB SCH (09:00)
--- NOTE | 2017-08-10 11:57 | PN ---
DATE: 08/07/2017 SUBJECTIVE: The patient was transferred to ICU yesterday for concern of aspiration during procedure . She is awake, lying comfortably in bed. VITAL SIGNS: T-max 100.3, pulse 79, respirations 16, blood pressure 101/54, saturation 100 on vent. LABORATORY DATA: WBC 9.3, H and H 8.1 and 25.4, platelets 172, neutrophils 73.1, BUN 30, creatinine 1.14. MICROBIOLOGY: Urine culture grew Pseudomonas aeruginosa, E. coli and Klebsiella ESBL, all susceptib le to imipenem. Blood cultures have been negative. INDWELLINGS: Trach, PEG, Salazar and PICC line placed on 08/05. DIAGNOSTICS: Chest x-ray this morning revealed no significant change in bilateral interstitial dens ities, edema and pleural effusion. ANTIMICROBIALS: The patient remains on IV vancomycin and meropenem. PHYSICAL EXAMINATION: GENERAL: This is a chronically ill-appearing, elderly woman who is awake, in no distress. HEENT: Head atraumatic, normocephalic. Sclerae anicteric. Buccal mucosa dry. NECK: Supple. Tracheostomy present. CHEST: Rise symmetrical. Breath sounds diminished to bases. HEART: S1, S2. ABDOMEN: Soft, bowel tones present. EXTREMITIES: Bilateral lower extremity gangrene. ASSESSMENT: 1. Sepsis. 2. Aspiration pneumonia. 3. Multidrug resistant urinary tract infection. 4. Bilateral lower extremity gangrene. 5. Severe peripheral vascular disease status post left lower extremity angiogram. 6. Acute kidney injury. 7. History of cerebrovascular accident and dysphagia, status post percutaneous endoscopic gastrosto my. 8. ALLERGY TO PENICILLIN. PLAN: The patient remains hemodynamically stable, followed by multiple consultants. She is on broa d spectrum antibiotics, which we will continue. Follow chest x-ray. Monitor renal function closely , vascular recommendations. Dictated By: GABRIELA CHARLES [employer] for NANCY STRINGER/DASHAWN Conf#: [id number] DID#: [id number]
[2017-08-10] MEDS: DEXTROSE 5%-0.45% NACL 1,000 ML IV SCH (12:00)
--- NOTE | 2017-08-10 12:33 | CONS ---
Date/Time of Note Date/Time of Note DATE: 08/10/17 TIME: 12:32 Consult Date/Type/Reason Admit Date/Time Jul 28, 2017 at 17:22 Initial Consult Date 08/08/17 Type of Consultation: Pulmonary Ordering Provider: MICHELLE CLIFTON MD Subjective Patient awake alert comfortable this morning. She is refused PEG tube feeding. Objective Vital Signs Date Time Temp Pulse Resp B/P Pulse Ox O2 Delivery O2 Flow Rate FiO2 08/10/17 11:23 57 16 100 30 08/10/17 10:00 122/56 Mechanical Ventilator 08/10/17 08:00 98.1 08/06/17 13:28 6.0 Intake and Output 08/09/17 08/09/17 08/10/17 15:00 23:00 07:00 Intake Total 897 ml 625 ml 450 ml Output Total 35 ml 185 ml 230 ml Balance 862 ml 440 ml 220 ml Exam PHYSICAL EXAMINATION GENERAL: Elderly lady on mechanical ventilation. VITAL SIGNS: see below. HEENT: Pupils equal, round, and reactive to light. Tracheostomy site clean and intact. CARDIAC: S1, S2, 1/6 systolic ejection murmur CHEST: Diminished air entry bilaterally. ABDOMEN: Mildly distended. Bowel sounds present no guarding or rebound EXTREMITIES: No cyanosis, clubbing edema +1 NEUROLOGIC: Generalized weakness Results/Medications Result Diagram: 08/10/17 0806 08/10/17 0806 Results 24 hrs Chest x-ray Dense bilateral infiltrates possible underlying effusions Laboratory Tests Test 08/09/17 12:44 08/09/17 18:22 08/09/17 23:41 08/10/17 06:49 Bedside Glucose 152 137 124 108 Test 08/10/17 08:06 08/10/17 10:04 White Blood Count 6.8 # Red Blood Count 2.68 L Hemoglobin 7.5 L Hematocrit 23.4 L Mean Corpuscular Volume 87.3 Mean Corpuscular Hemoglobin 28.0 L Mean Corpuscular Hemoglobin Concent 32.1 Red Cell Distribution Width 15.2 H Platelet Count 153 # Mean Platelet Volume 10.3 Neutrophils % 63.3 Lymphocytes % 15.5 Monocytes % 14.9 H Eosinophils % 5.4 Basophils % 0.3 Nucleated Red Blood Cells % 0.0 Neutrophils # 4.3 Lymphocytes # 1.1 Monocytes # 1.0 H Eosinophils # 0.4 Basophils # 0.0 Nucleated Red Blood Cells # 0.0 Sodium Level 134 L Potassium Level 4.3 Chloride Level 106 Carbon Dioxide Level 20 L Anion Gap 12 Blood Urea Nitrogen 42 H Creatinine 2.66 H Glucose Level 68 #L Calcium Level 8.1 L Magnesium Level 2.0 Bedside Glucose 114 Medications Current Medications Acetaminophen (Tylenol Liquid) 650 mg Q6H PRN GTB MILD PAIN LEVEL 1-3 Last administered on 08/10/17 09:25; Admin Dose 650 MG; Start 07/28/17 at 22:30 Amiodarone HCl (Cordarone) 200 mg DAILY GTB Last administered on 08/09/17 09: 14; Admin Dose 200 MG; Start 07/29/17 at 09:00 Atorvastatin Calcium (Lipitor) 20 mg QHS GTB Last administered on 08/09/17 20 :29; Admin Dose 20 MG; Start 07/29/17 at 21:00 Chlorhexidine Gluconate (Peridex) 15 ml BID MM Last administered on 08/10/17 08:29; Admin Dose 15 ML; Start 07/29/17 at 09:00 Hydralazine HCl (Apresoline) 50 mg Q8 PO Last administered on 08/10/17 06:45 ; Admin Dose 50 MG; Start 07/29/17 at 06:00 Hydromorphone HCl (Dilaudid) 1 mg Q3H PRN GTB PAIN 4-07/28 Last administered on 08/09/17 09:15; Admin Dose 1 MG; Start 07/28/17 at 22:30 Hydromorphone HCl (Dilaudid) 2 mg DAILY PRN GTB PAIN Last administered on 08/08 14:08; Admin Dose 2 MG; Start 07/28/17 at 22:30 Lansoprazole (Prevacid) 30 mg DAILY GTB Last administered on 08/10/17 08:30; Admin Dose 30 MG; Start 07/29/17 at 09:00 Linagliptin (Tradjenta) 5 mg DAILY GTB Last administered on 08/10/17 08:30; Admin Dose 5 MG; Start 07/29/17 at 09:00 Loperamide HCl (Imodium Cap) 2 mg Q4H PRN GTB DIARRHEA; Start 07/28/17 at 22: 30 Multivitamins (Multivitamin) 30 ml DAILY GTB Last administered on 08/10/17 08 :29; Admin Dose 30 ML; Start 07/29/17 at 09:00 Miscellaneous Information 1 ea NOTE XX ; Start 07/28/17 at 23:00 Glucose (Glutose) 15 gm Q15M PRN PO DECREASED GLUCOSE; Start 07/28/17 at 23:00 Glucose (Glutose) 22.5 gm Q15M PRN PO DECREASED GLUCOSE; Start 07/28/17 at 23: 00 Dextrose (D50w Syringe) 25 ml Q15M PRN IV DECREASED GLUCOSE; Start 07/28/17 at 23:00 Dextrose (D50w Syringe) 50 ml Q15M PRN IV DECREASED GLUCOSE; Start 07/28/17 at 23:00 Glucagon (Glucagen) 1 mg Q15M PRN IM DECREASED GLUCOSE; Start 07/28/17 at 23: 00 Glucose (Glutose) 15 gm Q15M PRN BUCCAL DECREASED GLUCOSE; Start 07/28/17 at 23:00 Miscellaneous Information (Pending Santyl Order For Wound Care) This patient alonzo... PRN PRN XX WOUND CARE; Start 07/29/17 at 06:30 Ascorbic Acid (Vitamin C) 500 mg BID GTB Last administered on 08/10/17 08:30 ; Admin Dose 500 MG; Start 07/29/17 at 21:30 Collagenase (Santyl) 1 applic DAILY TOP Last administered on 08/10/17 08:30; Admin Dose 1 APPLIC; Start 07/30/17 at 09:00 Nystatin (Nystatin Powder) 1 applic BID TOP Last administered on 08/10/17 08: 30; Admin Dose 1 APPLIC; Start 07/29/17 at 22:30 Epoetin Baudilio (Epogen (Oncology)) 10,000 units We@17 SC Last administered on 17:32; Admin Dose 10,000 UNITS; Start 08/05/17 at 17:00 Hydralazine HCl (Apresoline) 10 mg Q4H PRN IV ELEVATED BLOOD PRESSURE Last administered on 08/04/17 00:27; Admin Dose 10 MG; Start 08/03/17 at 11:51 Ondansetron HCl 4 mg 4 mg Q4H PRN IV NAUSEA AND/OR VOMITING Last administered on 08/06/17 09:14; Admin Dose 4 MG; Start 08/03/17 at 15:00 Dextrose/Sodium Chloride (D5-1/2ns) 1,000 ml @ 50 mls/hr Q20H IV Last administered on 08/09/17 14:56; Admin Dose 50 MLS/HR; Start 08/04/17 at 09:00 Lorazepam (Ativan) 0.5 mg Q6H PRN GTB ANXIETY Last administered on 08/06/17 10:25; Admin Dose 0.5 MG; Start 08/04/17 at 14:30 IV Flush (NS 10 ml) 10 ml PRN PRN IV IV PROTOCOL; Start 08/05/17 at 17:30 Metoclopramide HCl (Reglan) 5 mg Q6 IV Last administered on 08/09/17 18:23; Admin Dose 5 MG; Start 08/06/17 at 00:00 Pregabalin (Lyrica) 75 mg BID GTB Last administered on 08/10/17 08:29; Admin Dose 75 MG; Start 08/06/17 at 21:00 Linezolid (Zyvox) 600 mg BID GTB Last administered on 08/10/17 08:30; Admin Dose 600 MG; Start 08/08/17 at 14:00 Insulin Detemir (Levemir) 10 unit Q12H SC Last administered on 08/09/17 23:46 ; Admin Dose 10 UNIT; Start 08/09/17 at 12:00 Insulin Aspart (Adult SC Insulin - Mild Algorithm)... Q4 SC ; Start 08/10/17 at 13:00 Meropenem/Sodium Chloride (Merrem 500mg/50 ml(Pmx)) 50 ml @ 200 mls/hr Q12 IVPB ; Start 08/10/17 at 21:00 Assessment/Plan Chief Complaint/Hosp Course IMP: 1. Sepsis 2. Possible HCAP vs Aspiration chronic hypoxemic respiratory failure 3. Urosepsis 4. Severe PAD/PVD 5. Acute kidney injury 6. Anemia possible GI bleed RECS: 1. Vent support 2. Maintain MAP > 65 mm Hg 3. Follow lactates 4. Abx per ID 5. TF/Free H20 Stable for transfer to telemetry Problems: CRISTINE DOAN MD, FCCP Aug 10, 2017 12:33
[2017-08-10] MEDS: INSULIN ASPART [NOVOLOG] 3 ML PEN SC SCH ×3 (12:59→20:38)
[2017-08-10] MEDS: INSULIN DETEMIR [LEVEMIR] 3ML CART SC SCH (13:08)
--- NOTE | 2017-08-10 14:04 | PN ---
DATE: 08/10/2017 SUBJECTIVE: No events overnight. The patient is alert, denies pain, looks comfortable, no fevers. VITAL SIGNS: Temperature 98.1, pulse rate 60, respirations 16, blood pressure 122/56, saturation 10 0 on 30 FIO2. WBC 6.8, platelets 153, hemoglobin and hematocrit 7.5 and 23.4, no shift, no bands. BUN 42, creatin ine 2.66. ANTIMICROBIALS: The patient is on: 1. IV meropenem. 2. Zyvox. INDWELLINGS: Trach, PEG, Salazar, PICC line. ALLERGIES: PENICILLIN. PHYSICAL EXAMINATION: GENERAL: This is a chronically ill-appearing, elderly woman who is awake, in no distress. HEENT: Head atraumatic, normocephalic. Sclerae anicteric. Buccal mucosa dry. NECK: Supple. CHEST: Rise symmetrical. Breath sounds diminished to bases. HEART: S1, S2. ABDOMEN: Soft. Bowel tones present. ASSESSMENT: 1. Resolving sepsis. 2. Acute on chronic respiratory failure secondary to aspiration pneumonia. 3. Multidrug resistant urinary tract infection, urine culture on admission grew Pseudomonas, Klebsi dale extended-spectrum beta-lactamase and Escherichia coli. 4. 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 5. Acute kidney injury. 6. History of cerebrovascular accident. 7. ALLERGY TO PENICILLIN. PLAN: The patient remains stable, covered with appropriate antimicrobials. She is being followed b y multiple consultants, pending transfer to telemetry floor. Dictated By: GABRIELA CHARLES [employer]UFA[employer]URING COST ESTIMATOR huan STRINGER/DASHAWN Conf#: [id number] DID#: [id number]
[2017-08-10] MEDS: ONDANSETRON 4 MG INJ IV PRN (14:27)
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
[2017-08-10] MEDS: SOD CHLORIDE 0.9% 1,000 ML IV SCH (17:16)
--- NOTE | 2017-08-10 19:06 | RADRPT ---
PROCEDURE: Renal US. CLINICAL INDICATION: Renal dysfunction. TECHNIQUE: Multiple sonographic images of the kidneys and urinary bladder were obtained. The imag es were reviewed on a PACS workstation. COMPARISON: No prior studies are available for comparison. FINDINGS: The right kidney measures 10.9 x 5.3 x 5.6 cm. The left kidney measures 11.0 x 5.6 x 4.8 cm. There is no renal mass. There is no hydronephrosis. There is no renal calculus. Renal parenchymal thickness is normal bilaterally. Both kidneys are hyperechoic consistent with medical renal disease. The perirenal regions are normal with no fluid collection or mass. There is a Salazar catheter in the urinary bladder. IMPRESSION: 1. No hydronephrosis. 2. Bilateral hyperechoic kidneys consistent with medical renal disease. 3. Salazar catheter in the bladder. 4. Otherwise unremarkable study. RPTAT: QQ .Pascual Corbin MD, MD Date Time Electronically viewed and signed by .Pascual Corbin MD, on 08/10/2017 19:06 .R/
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
[2017-08-10] MEDS: ATORVASTATIN 20 MG TAB GTB SCH (20:33)
[2017-08-11] VITALS (28 sets, daily range): BP systolic 113–179; BP diastolic 53–75; PULSE 54–80; RESP 16–27
[2017-08-11] MEDS: INSULIN ASPART [NOVOLOG] 3 ML PEN SC SCH ×6 (00:20→21:00)
[2017-08-11] MEDS: METOCLOPRAMIDE 10 MG INJ IV SCH ×4 (00:21→18:22)
[2017-08-11] MEDS: INSULIN DETEMIR [LEVEMIR] 3ML CART SC SCH ×2 (00:25→12:56)
[2017-08-11] MEDS: IPRATROPIUM (HFA) 12.9 GM INHALER INH SCH ×4 (01:26→19:33)
[2017-08-11] MEDS: LEVALBUTEROL (HFA) 15 GM INHALER INH SCH ×4 (01:26→19:33)
[2017-08-11] MEDS: ACETAMINOPHEN 650MG/20.3ML CUP GTB PRN ×3 (04:20→21:43)
[2017-08-11 05:14] LABS: BASOPHILS % 0.4 % (0.0-2.0); EOSINOPHILS # 0.6 10^3/ul (0.0-0.5); EOSINOPHILS % 7.6 % (0.0-7.0); HEMATOCRIT 28.7 % (37.0-47.0); HEMOGLOBIN 9.1 g/dl (12.0-16.0); LYMPHOCYTES # 1.1 10^3/ul (0.8-2.9); MEAN CORPUSCULAR HEMOGLOBIN 27.3 pg (29.0-33.0); MEAN CORPUSCULAR HGB CONC 31.7 g/dl (32.0-37.0); MEAN CORPUSCULAR VOLUME 86.2 fl (82.0-101.0); MEAN PLATELET VOLUME 10.9 fl (7.4-10.4); MONOCYTES % 13.1 % (0.0-11.0); NEUTROPHIL # 4.6 10^3/ul (1.6-7.5); NEUTROPHILS % 62.8 % (39.0-77.0); PLATELET COUNT 175 10^3/UL (140-415); RED BLOOD COUNT 3.33 10^6/ul (4.20-5.40); RED CELL DISTRIBUTION WIDTH 15.5 % (11.5-14.5); WHITE BLOOD COUNT 7.4 10^3/ul (4.8-10.8)
[2017-08-11] MEDS: SOD CHLORIDE 0.9% 1,000 ML IV SCH (05:30)
[2017-08-11 05:46] LABS: CALCIUM 8.1 mg/dl (8.4-10.2); CREATININE 2.88 mg/dl (0.44-1.00)
[2017-08-11] MEDS: DEXTROSE 5%-0.45% NACL 1,000 ML IV SCH (06:21)
[2017-08-11] MEDS: PREGABALIN 25 MG CAP GTB SCH (09:00)
[2017-08-11] MEDS: MULTIVITAMINS 30 ML CUP GTB SCH (09:00)
[2017-08-11] MEDS: LINAGLIPTIN 5 MG TABLET GTB SCH (09:20)
[2017-08-11] MEDS: ZYVOX 600 MG TAB GTB SCH ×2 (09:20→21:25)
[2017-08-11] MEDS: CHLORHEXIDINE GLUCONATE 15 ML UD CUP MM SCH ×2 (09:20→21:30)
[2017-08-11] MEDS: MEROPENEM 500MG/50 ML (PMX) 50 ML IVPB SCH ×2 (09:21→22:49)
[2017-08-11] MEDS: LANSOPRAZOLE 30 MG CAP GTB SCH (09:21)
[2017-08-11] MEDS: ASCORBIC ACID 500 MG TAB GTB SCH ×2 (09:21→21:25)
[2017-08-11] MEDS: AMIODARONE 200 MG TAB GTB SCH (09:21)
[2017-08-11] MEDS: NYSTATIN 30 GM POWDER BTL TOP SCH ×2 (09:22→21:27)
[2017-08-11] MEDS: COLLAGENASE 30 GM TUBE TOP SCH (09:22)
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
--- NOTE | 2017-08-11 13:46 | CONS ---
Date/Time of Note Date/Time of Note DATE: 08/11/17 TIME: 13:45 Consult Date/Type/Reason Admit Date/Time Jul 28, 2017 at 17:22 Initial Consult Date 08/07/17 Type of Consultation: ID Ordering Provider: MICHELLE CLIFTON MD Objective Vital Signs Date Time Temp Pulse Resp B/P Pulse Ox O2 Delivery O2 Flow Rate FiO2 08/11/17 12:51 63 08/11/17 08:19 98.2 19 165/75 100 08/11/17 07:30 30 08/11/17 07:00 Mechanical Ventilator Trach Collar Intake and Output 08/10/17 08/10/17 08/11/17 15:00 23:00 07:00 Intake Total 625 ml 1070 ml 1395 ml Output Total 160 ml 145 ml 155 ml Balance 465 ml 925 ml 1240 ml Results/Medications Result Diagram: 08/11/17 0426 08/11/17 0426 Results 24 hrs Laboratory Tests Test 08/10/17 17:15 08/10/17 20:37 08/11/17 00:18 08/11/17 04:24 Bedside Glucose 101 87 90 96 Test 08/11/17 04:26 08/11/17 05:07 08/11/17 11:20 08/11/17 12:51 White Blood Count 7.4 Red Blood Count 3.33 #L Hemoglobin 9.1 #L Hematocrit 28.7 #L Mean Corpuscular Volume 86.2 Mean Corpuscular Hemoglobin 27.3 L Mean Corpuscular Hemoglobin Concent 31.7 L Red Cell Distribution Width 15.5 H Platelet Count 175 Mean Platelet Volume 10.9 H Neutrophils % 62.8 Lymphocytes % 15.0 Monocytes % 13.1 H Eosinophils % 7.6 H Basophils % 0.4 Nucleated Red Blood Cells % 0.0 Neutrophils # 4.6 Lymphocytes # 1.1 Monocytes # 1.0 H Eosinophils # 0.6 H Basophils # 0.0 Nucleated Red Blood Cells # 0.0 Sodium Level 134 L Potassium Level 4.0 Chloride Level 107 Carbon Dioxide Level 20 L Anion Gap 11 Blood Urea Nitrogen 43 H Creatinine 2.88 H Glucose Level 70 Calcium Level 8.1 L Lab Scanned Report BLOOD TRANSFUSION Bedside Glucose 81 79 Medications Current Medications Acetaminophen (Tylenol Liquid) 650 mg Q6H PRN GTB MILD PAIN LEVEL 1-3 Last administered on 08/11/17 09:20; Admin Dose 650 MG; Start 07/28/17 at 22:30 Amiodarone HCl (Cordarone) 200 mg DAILY GTB Last administered on 08/11/17 09: 21; Admin Dose 200 MG; Start 07/29/17 at 09:00 Atorvastatin Calcium (Lipitor) 20 mg QHS GTB Last administered on 08/10/17 20 :33; Admin Dose 20 MG; Start 07/29/17 at 21:00 Chlorhexidine Gluconate (Peridex) 15 ml BID MM Last administered on 08/11/17 09:20; Admin Dose 15 ML; Start 07/29/17 at 09:00 Hydralazine HCl (Apresoline) 50 mg Q8 PO Last administered on 08/11/17 06:11 ; Admin Dose 50 MG; Start 07/29/17 at 06:00 Hydromorphone HCl (Dilaudid) 1 mg Q3H PRN GTB PAIN 4 Last administered on 08/09/17 09:15; Admin Dose 1 MG; Start 07/28/17 at 22:30 Hydromorphone HCl (Dilaudid) 2 mg DAILY PRN GTB PAIN Last administered on 08/08 14:08; Admin Dose 2 MG; Start 07/28/17 at 22:30 Lansoprazole (Prevacid) 30 mg DAILY GTB Last administered on 08/11/17 09:21; Admin Dose 30 MG; Start 07/29/17 at 09:00 Linagliptin (Tradjenta) 5 mg DAILY GTB Last administered on 08/11/17 09:20; Admin Dose 5 MG; Start 07/29/17 at 09:00 Loperamide HCl (Imodium Cap) 2 mg Q4H PRN GTB DIARRHEA; Start 07/28/17 at 22: 30 Multivitamins (Multivitamin) 30 ml DAILY GTB Last administered on 08/10/17 08 :29; Admin Dose 30 ML; Start 07/29/17 at 09:00 Miscellaneous Information 1 ea NOTE XX ; Start 07/28/17 at 23:00 Glucose (Glutose) 15 gm Q15M PRN PO DECREASED GLUCOSE; Start 07/28/17 at 23:00 Glucose (Glutose) 22.5 gm Q15M PRN PO DECREASED GLUCOSE; Start 07/28/17 at 23: 00 Dextrose (D50w Syringe) 25 ml Q15M PRN IV DECREASED GLUCOSE; Start 07/28/17 at 23:00 Dextrose (D50w Syringe) 50 ml Q15M PRN IV DECREASED GLUCOSE; Start 07/28/17 at 23:00 Glucagon (Glucagen) 1 mg Q15M PRN IM DECREASED GLUCOSE; Start 07/28/17 at 23: 00 Glucose (Glutose) 15 gm Q15M PRN BUCCAL DECREASED GLUCOSE; Start 07/28/17 at 23:00 Miscellaneous Information (Pending Santyl Order For Wound Care) This patient alonzo... PRN PRN XX WOUND CARE; Start 07/29/17 at 06:30 Ascorbic Acid (Vitamin C) 500 mg BID GTB Last administered on 08/11/17 09:21 ; Admin Dose 500 MG; Start 07/29/17 at 21:30 Collagenase (Santyl) 1 applic DAILY TOP Last administered on 08/11/17 09:22; Admin Dose 1 APPLIC; Start 07/30/17 at 09:00 Nystatin (Nystatin Powder) 1 applic BID TOP Last administered on 08/11/17 09: 22; Admin Dose 1 APPLIC; Start 07/29/17 at 22:30 Epoetin Baudilio (Epogen (Oncology)) 10,000 units We@17 SC Last administered on 17:32; Admin Dose 10,000 UNITS; Start 08/05/17 at 17:00 Hydralazine HCl (Apresoline) 10 mg Q4H PRN IV ELEVATED BLOOD PRESSURE Last administered on 08/04/17 00:27; Admin Dose 10 MG; Start 08/03/17 at 11:51 Ondansetron HCl 4 mg 4 mg Q4H PRN IV NAUSEA AND/OR VOMITING Last administered on 08/10/17 14:27; Admin Dose 4 MG; Start 08/03/17 at 15:00 Dextrose/Sodium Chloride (D5-1/2ns) 1,000 ml @ 50 mls/hr Q20H IV Last administered on 08/11/17 06:21; Admin Dose 50 MLS/HR; Start 08/04/17 at 09:00 Lorazepam (Ativan) 0.5 mg Q6H PRN GTB ANXIETY Last administered on 08/06/17 10:25; Admin Dose 0.5 MG; Start 08/04/17 at 14:30 IV Flush (NS 10 ml) 10 ml PRN PRN IV IV PROTOCOL; Start 08/05/17 at 17:30 Metoclopramide HCl (Reglan) 5 mg Q6 IV Last administered on 08/11/17 12:46; Admin Dose 5 MG; Start 08/06/17 at 00:00 Pregabalin (Lyrica) 75 mg BID GTB Last administered on 08/10/17 20:34; Admin Dose 75 MG; Start 08/06/17 at 21:00 Linezolid (Zyvox) 600 mg BID GTB Last administered on 08/11/17 09:20; Admin Dose 600 MG; Start 08/08/17 at 14:00 Insulin Detemir (Levemir) 10 unit Q12H SC Last administered on 08/11/17 12:56 ; Admin Dose 10 UNIT; Start 08/09/17 at 12:00 Insulin Aspart (Adult SC Insulin - Mild Algorithm)... Q4 SC ; Start 08/10/17 at 13:00 Meropenem/Sodium Chloride (Merrem 500mg/50 ml(Pmx)) 50 ml @ 200 mls/hr Q12 IVPB Last administered on 08/11/17 09:21; Admin Dose 200 MLS/HR; Start 08/10 at 21:00 Assessment/Plan Chief Complaint/Hosp Course SUBJECTIVE: No events overnight. Tx to tele. The patient is alert, denies pain , looks comfortable, no fevers. ANTIMICROBIALS: The patient is on: 1. IV meropenem. 2. Zyvox. INDWELLINGS: Trach, PEG, Salazar, PICC line. ALLERGIES: PENICILLIN. PHYSICAL EXAMINATION: GENERAL: This is a chronically ill-appearing, elderly woman who is awake, in no distress. HEENT: Head atraumatic, normocephalic. Sclerae anicteric. Buccal mucosa dry. NECK: Supple. CHEST: Rise symmetrical. Breath sounds diminished to bases. HEART: S1, S2. ABDOMEN: Soft. Bowel tones present. ASSESSMENT: 1. Resolving sepsis. 2. Acute on chronic respiratory failure secondary to aspiration pneumonia. 3. Multidrug resistant urinary tract infection, urine culture on admission grew Pseudomonas, Klebsiella extended-spectrum beta-lactamase and Escherichia coli. 4. 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 5. Acute kidney injury. 6. History of cerebrovascular accident. 7. ALLERGY TO PENICILLIN. PLAN: The patient remains stable, covered with appropriate antimicrobials. She is being followed by multiple consultants, f/u vascular/podiatry rec-s. [facility] staff Problems: GABRIELA CHARLES NP Aug 11, 2017 13:46
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
--- NOTE | 2017-08-11 17:27 | CONS ---
Date/Time of Note Date/Time of Note DATE: 08/11/17 TIME: 17:25 Consult Date/Type/Reason Admit Date/Time Jul 28, 2017 at 17:22 Initial Consult Date 08/08/17 Type of Consultation: Pulmonary Ordering Provider: MICHELLE CLIFTON MD Subjective Patient stable following transfer from ICU Objective Vital Signs Date Time Temp Pulse Resp B/P Pulse Ox O2 Delivery O2 Flow Rate FiO2 08/11/17 17:11 66 08/11/17 15:50 98.2 19 147/67 92 08/11/17 14:46 30 08/11/17 07:00 Mechanical Ventilator Trach Collar Intake and Output 08/10/17 08/10/17 08/11/17 15:00 23:00 07:00 Intake Total 625 ml 1070 ml 1395 ml Output Total 160 ml 145 ml 155 ml Balance 465 ml 925 ml 1240 ml Exam PHYSICAL EXAMINATION GENERAL: Elderly lady on mechanical ventilation. VITAL SIGNS: see below. HEENT: Pupils equal, round, and reactive to light. Tracheostomy site clean and intact. CARDIAC: S1, S2, 1/6 systolic ejection murmur CHEST: Diminished air entry bilaterally. ABDOMEN: Mildly distended. Bowel sounds present no guarding or rebound EXTREMITIES: No cyanosis, clubbing edema +1 NEUROLOGIC: Generalized weakness Results/Medications Result Diagram: 08/11/17 0426 08/11/17 0426 Results 24 hrs Laboratory Tests Test 08/10/17 20:37 08/11/17 00:18 08/11/17 04:24 08/11/17 04:26 Bedside Glucose 87 90 96 White Blood Count 7.4 Red Blood Count 3.33 #L Hemoglobin 9.1 #L Hematocrit 28.7 #L Mean Corpuscular Volume 86.2 Mean Corpuscular Hemoglobin 27.3 L Mean Corpuscular Hemoglobin Concent 31.7 L Red Cell Distribution Width 15.5 H Platelet Count 175 Mean Platelet Volume 10.9 H Neutrophils % 62.8 Lymphocytes % 15.0 Monocytes % 13.1 H Eosinophils % 7.6 H Basophils % 0.4 Nucleated Red Blood Cells % 0.0 Neutrophils # 4.6 Lymphocytes # 1.1 Monocytes # 1.0 H Eosinophils # 0.6 H Basophils # 0.0 Nucleated Red Blood Cells # 0.0 Sodium Level 134 L Potassium Level 4.0 Chloride Level 107 Carbon Dioxide Level 20 L Anion Gap 11 Blood Urea Nitrogen 43 H Creatinine 2.88 H Glucose Level 70 Calcium Level 8.1 L Test 08/11/17 05:07 08/11/17 11:20 08/11/17 12:51 08/11/17 14:40 Lab Scanned Report BLOOD TRANSFUSION Bedside Glucose 81 79 79 Medications Current Medications Acetaminophen (Tylenol Liquid) 650 mg Q6H PRN GTB MILD PAIN LEVEL 1-3 Last administered on 08/11/17 09:20; Admin Dose 650 MG; Start 07/28/17 at 22:30 Amiodarone HCl (Cordarone) 200 mg DAILY GTB Last administered on 08/11/17 09: 21; Admin Dose 200 MG; Start 07/29/17 at 09:00 Atorvastatin Calcium (Lipitor) 20 mg QHS GTB Last administered on 08/10/17 20 :33; Admin Dose 20 MG; Start 07/29/17 at 21:00 Chlorhexidine Gluconate (Peridex) 15 ml BID MM Last administered on 08/11/17 09:20; Admin Dose 15 ML; Start 07/29/17 at 09:00 Hydralazine HCl (Apresoline) 50 mg Q8 PO Last administered on 08/11/17 14:42 ; Admin Dose 50 MG; Start 07/29/17 at 06:00 Hydromorphone HCl (Dilaudid) 1 mg Q3H PRN GTB PAIN 4-07/28 Last administered on 08/09/17 09:15; Admin Dose 1 MG; Start 07/28/17 at 22:30 Hydromorphone HCl (Dilaudid) 2 mg DAILY PRN GTB PAIN Last administered on 08/08 14:08; Admin Dose 2 MG; Start 07/28/17 at 22:30 Lansoprazole (Prevacid) 30 mg DAILY GTB Last administered on 08/11/17 09:21; Admin Dose 30 MG; Start 07/29/17 at 09:00 Linagliptin (Tradjenta) 5 mg DAILY GTB Last administered on 08/11/17 09:20; Admin Dose 5 MG; Start 07/29/17 at 09:00 Loperamide HCl (Imodium Cap) 2 mg Q4H PRN GTB DIARRHEA; Start 07/28/17 at 22: 30 Multivitamins (Multivitamin) 30 ml DAILY GTB Last administered on 08/10/17 08 :29; Admin Dose 30 ML; Start 07/29/17 at 09:00 Miscellaneous Information 1 ea NOTE XX ; Start 07/28/17 at 23:00 Glucose (Glutose) 15 gm Q15M PRN PO DECREASED GLUCOSE; Start 07/28/17 at 23:00 Glucose (Glutose) 22.5 gm Q15M PRN PO DECREASED GLUCOSE; Start 07/28/17 at 23: 00 Dextrose (D50w Syringe) 25 ml Q15M PRN IV DECREASED GLUCOSE; Start 07/28/17 at 23:00 Dextrose (D50w Syringe) 50 ml Q15M PRN IV DECREASED GLUCOSE; Start 07/28/17 at 23:00 Glucagon (Glucagen) 1 mg Q15M PRN IM DECREASED GLUCOSE; Start 07/28/17 at 23: 00 Glucose (Glutose) 15 gm Q15M PRN BUCCAL DECREASED GLUCOSE; Start 07/28/17 at 23:00 Miscellaneous Information (Pending Santyl Order For Wound Care) This patient alonzo... PRN PRN XX WOUND CARE; Start 07/29/17 at 06:30 Ascorbic Acid (Vitamin C) 500 mg BID GTB Last administered on 08/11/17 09:21 ; Admin Dose 500 MG; Start 07/29/17 at 21:30 Collagenase (Santyl) 1 applic DAILY TOP Last administered on 08/11/17 09:22; Admin Dose 1 APPLIC; Start 07/30/17 at 09:00 Nystatin (Nystatin Powder) 1 applic BID TOP Last administered on 08/11/17 09: 22; Admin Dose 1 APPLIC; Start 07/29/17 at 22:30 Epoetin Baudilio (Epogen (Oncology)) 10,000 units We@17 SC Last administered on 17:32; Admin Dose 10,000 UNITS; Start 08/05/17 at 17:00 Hydralazine HCl (Apresoline) 10 mg Q4H PRN IV ELEVATED BLOOD PRESSURE Last administered on 08/04/17 00:27; Admin Dose 10 MG; Start 08/03/17 at 11:51 Ondansetron HCl 4 mg 4 mg Q4H PRN IV NAUSEA AND/OR VOMITING Last administered on 10/23/17at 14:27; Admin Dose 4 MG; Start 08/03/17 at 15:00 Dextrose/Sodium Chloride (D5-1/2ns) 1,000 ml @ 50 mls/hr Q20H IV Last administered on 08/11/17 06:21; Admin Dose 50 MLS/HR; Start 08/04/17 at 09:00 Lorazepam (Ativan) 0.5 mg Q6H PRN GTB ANXIETY Last administered on 08/06/17 10:25; Admin Dose 0.5 MG; Start 08/04/17 at 14:30 IV Flush (NS 10 ml) 10 ml PRN PRN IV IV PROTOCOL; Start 08/05/17 at 17:30 Metoclopramide HCl (Reglan) 5 mg Q6 IV Last administered on 08/11/17 12:46; Admin Dose 5 MG; Start 08/06/17 at 00:00 Pregabalin (Lyrica) 75 mg BID GTB Last administered on 08/10/17 20:34; Admin Dose 75 MG; Start 08/06/17 at 21:00 Linezolid (Zyvox) 600 mg BID GTB Last administered on 08/11/17 09:20; Admin Dose 600 MG; Start 08/08/17 at 14:00 Insulin Detemir (Levemir) 10 unit Q12H SC Last administered on 08/11/17 12:56 ; Admin Dose 10 UNIT; Start 08/09/17 at 12:00 Insulin Aspart (Adult SC Insulin - Mild Algorithm)... Q4 SC ; Start 08/10/17 at 13:00 Meropenem/Sodium Chloride (Merrem 500mg/50 ml(Pmx)) 50 ml @ 200 mls/hr Q12 IVPB Last administered on 08/11/17 09:21; Admin Dose 200 MLS/HR; Start 08/10 at 21:00 Assessment/Plan Chief Complaint/Hosp Course IMP: 1. Sepsis 2. Possible HCAP vs Aspiration chronic hypoxemic respiratory failure 3. Urosepsis 4. Severe PAD/PVD 5. Acute kidney injury 6. Anemia possible GI bleed RECS: 1. Vent support 2. Maintain MAP > 65 mm Hg 3. Monitor H&H 4. Abx per ID 5. TF/Free H20 Continue current care. Problems: CRISTINE DOAN MD, [facility] Aug 11, 2017 17:27
[2017-08-11] MEDS: ATORVASTATIN 20 MG TAB GTB SCH (21:25)
[2017-08-11] MEDS: PREGABALIN 75 MG CAP GTB SCH (21:46)
[2017-08-12] VITALS (19 sets, daily range): BP systolic 134–161; BP diastolic 60–80; PULSE 63–75; RESP 16–20
[2017-08-12] MEDS: INSULIN ASPART [NOVOLOG] 3 ML PEN SC SCH ×5 (01:00→17:00)
[2017-08-12] MEDS: IPRATROPIUM (HFA) 12.9 GM INHALER INH SCH ×3 (01:29→18:26)
[2017-08-12] MEDS: LEVALBUTEROL (HFA) 15 GM INHALER INH SCH ×3 (01:29→18:29)
[2017-08-12] MEDS: HYDROmorphONE 2 MG TAB GTB PRN ×2 (01:38→15:25)
[2017-08-12] MEDS: METOCLOPRAMIDE 10 MG INJ IV SCH ×4 (01:42→17:40)
[2017-08-12] MEDS: DEXTROSE 5%-0.45% NACL 1,000 ML IV SCH (05:47)
[2017-08-12 08:35] LABS: BASOPHILS % 0.5 % (0.0-2.0); EOSINOPHILS # 0.7 10^3/ul (0.0-0.5); EOSINOPHILS % 9.1 % (0.0-7.0); HEMATOCRIT 29.7 % (37.0-47.0); HEMOGLOBIN 9.8 g/dl (12.0-16.0); LYMPHOCYTES # 0.9 10^3/ul (0.8-2.9); LYMPHOCYTES % 12.1 % (15.0-51.0); MEAN CORPUSCULAR HEMOGLOBIN 28.1 pg (29.0-33.0); MEAN CORPUSCULAR VOLUME 85.1 fl (82.0-101.0); MEAN PLATELET VOLUME 10.7 fl (7.4-10.4); MONOCYTE # 0.9 10^3/ul (0.3-0.9); MONOCYTES % 11.8 % (0.0-11.0); NEUTROPHILS % 65.6 % (39.0-77.0); PLATELET COUNT 189 10^3/UL (140-415); RED BLOOD COUNT 3.49 10^6/ul (4.20-5.40); RED CELL DISTRIBUTION WIDTH 15.2 % (11.5-14.5); WHITE BLOOD COUNT 7.6 10^3/ul (4.8-10.8)
[2017-08-12 08:58] LABS: CALCIUM 7.9 mg/dl (8.4-10.2); CREATININE 1.93 mg/dl (0.44-1.00); POTASSIUM 3.8 mmol/L (3.5-5.1)
[2017-08-12] MEDS: CHLORHEXIDINE GLUCONATE 15 ML UD CUP MM SCH (09:16)
[2017-08-12] MEDS: AMIODARONE 200 MG TAB GTB SCH (09:16)
[2017-08-12] MEDS: ZYVOX 600 MG TAB GTB SCH (09:16)
[2017-08-12] MEDS: LINAGLIPTIN 5 MG TABLET GTB SCH (09:16)
[2017-08-12] MEDS: ASCORBIC ACID 500 MG TAB GTB SCH (09:16)
[2017-08-12] MEDS: MULTIVITAMINS 30 ML CUP GTB SCH (09:16)
[2017-08-12] MEDS: LANSOPRAZOLE 30 MG CAP GTB SCH (09:16)
[2017-08-12] MEDS: NYSTATIN 30 GM POWDER BTL TOP SCH (09:17)
[2017-08-12] MEDS: MEROPENEM 500MG/50 ML (PMX) 50 ML IVPB SCH (10:18)
[2017-08-12] MEDS: PREGABALIN 75 MG CAP GTB SCH (10:20)
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
[2017-08-12] MEDS: INSULIN DETEMIR [LEVEMIR] 3ML CART SC SCH ×2 (13:28)
--- NOTE | 2017-08-12 14:29 | CONS ---
Date/Time of Note Date/Time of Note DATE: 08/12/17 TIME: 14:27 Consult Date/Type/Reason Admit Date/Time Jul 28, 2017 at 17:22 Initial Consult Date 08/07/17 Type of Consultation: ID Ordering Provider: MICHELLE CLIFTON MD Objective Vital Signs Date Time Temp Pulse Resp B/P Pulse Ox O2 Delivery O2 Flow Rate FiO2 08/12/17 12:50 75 19 98 30 08/12/17 11:21 98.4 136/60 08/11/17 07:00 Mechanical Ventilator Trach Collar Intake and Output 08/11/17 08/11/17 08/12/17 15:00 23:00 07:00 Intake Total 300 ml 1550 ml Output Total 450 ml 900 ml Balance -150 ml 650 ml Results/Medications Result Diagram: 08/12/1772508/12/17725 Results 24 hrs Laboratory Tests Test 08/11/17 14:40 08/11/17 17:50 08/11/17 21:29 08/12/17 01:42 Bedside Glucose 79 97 91 112 Test 08/12/17 05:00 08/12/17 07:26 08/12/17 10:21 08/12/17 13:25 Bedside Glucose 99 160 167 White Blood Count 7.6 Red Blood Count 3.49 L Hemoglobin 9.8 L Hematocrit 29.7 L Mean Corpuscular Volume 85.1 Mean Corpuscular Hemoglobin 28.1 L Mean Corpuscular Hemoglobin Concent 33.0 Red Cell Distribution Width 15.2 H Platelet Count 189 Mean Platelet Volume 10.7 H Neutrophils % 65.6 Lymphocytes % 12.1 L Monocytes % 11.8 H Eosinophils % 9.1 H Basophils % 0.5 Nucleated Red Blood Cells % 0.0 Neutrophils # 5.0 Lymphocytes # 0.9 Monocytes # 0.9 Eosinophils # 0.7 H Basophils # 0.0 Nucleated Red Blood Cells # 0.0 Sodium Level 134 L Potassium Level 3.8 Chloride Level 108 Carbon Dioxide Level 19 L Anion Gap 11 Blood Urea Nitrogen 36 H Creatinine 1.93 H Glucose Level 253 #H Calcium Level 7.9 L Medications Current Medications Acetaminophen (Tylenol Liquid) 650 mg Q6H PRN GTB MILD PAIN LEVEL 1-3 Last administered on 08/11/17t 21:43; Admin Dose 650 MG; Start 07/28/17 at 22:30 Amiodarone HCl (Cordarone) 200 mg DAILY GTB Last administered on 08/12/17 09: 16; Admin Dose 200 MG; Start 07/29/17 at 09:00 Atorvastatin Calcium (Lipitor) 20 mg QHS GTB Last administered on 08/11/17 21 :25; Admin Dose 20 MG; Start 07/29/17 at 21:00 Chlorhexidine Gluconate (Peridex) 15 ml BID MM Last administered on 08/12/17 09:16; Admin Dose 15 ML; Start 07/29/17 at 09:00 Hydralazine HCl (Apresoline) 50 mg Q8 PO Last administered on 08/12/17 05:41 ; Admin Dose 50 MG; Start 07/29/17 at 06:00 Hydromorphone HCl (Dilaudid) 1 mg Q3H PRN GTB PAIN 4 Last administered on 08/12/17 01:38; Admin Dose 1 MG; Start 07/28/17 at 22:30 Hydromorphone HCl (Dilaudid) 2 mg DAILY PRN GTB PAIN Last administered on 08/08 14:08; Admin Dose 2 MG; Start 07/28/17 at 22:30 Lansoprazole (Prevacid) 30 mg DAILY GTB Last administered on 08/12/17 09:16; Admin Dose 30 MG; Start 07/29/17 at 09:00 Linagliptin (Tradjenta) 5 mg DAILY GTB Last administered on 08/12/17 09:16; Admin Dose 5 MG; Start 07/29/17 at 09:00 Loperamide HCl (Imodium Cap) 2 mg Q4H PRN GTB DIARRHEA; Start 07/28/17 at 22: 30 Multivitamins (Multivitamin) 30 ml DAILY GTB Last administered on 08/12/17 09 :16; Admin Dose 30 ML; Start 07/29/17 at 09:00 Miscellaneous Information 1 ea NOTE XX ; Start 07/28/17 at 23:00 Glucose (Glutose) 15 gm Q15M PRN PO DECREASED GLUCOSE; Start 07/28/17 at 23:00 Glucose (Glutose) 22.5 gm Q15M PRN PO DECREASED GLUCOSE; Start 07/28/17 at 23: 00 Dextrose (D50w Syringe) 25 ml Q15M PRN IV DECREASED GLUCOSE; Start 07/28/17 at 23:00 Dextrose (D50w Syringe) 50 ml Q15M PRN IV DECREASED GLUCOSE; Start 07/28/17 at 23:00 Glucagon (Glucagen) 1 mg Q15M PRN IM DECREASED GLUCOSE; Start 07/28/17 at 23: 00 Glucose (Glutose) 15 gm Q15M PRN BUCCAL DECREASED GLUCOSE; Start 07/28/17 at 23:00 Miscellaneous Information (Pending Santyl Order For Wound Care) This patient alonzo... PRN PRN XX WOUND CARE; Start 07/29/17 at 06:30 Ascorbic Acid (Vitamin C) 500 mg BID GTB Last administered on 08/12/17 09:16 ; Admin Dose 500 MG; Start 07/29/17 at 21:30 Collagenase (Santyl) 1 applic DAILY TOP Last administered on 08/11/17 09:22; Admin Dose 1 APPLIC; Start 07/30/17 at 09:00 Nystatin (Nystatin Powder) 1 applic BID TOP Last administered on 08/12/17 09: 17; Admin Dose 1 APPLIC; Start 07/29/17 at 22:30 Epoetin Baudilio (Epogen (Oncology)) 10,000 units We@17 SC Last administered on 17:32; Admin Dose 10,000 UNITS; Start 08/05/17 at 17:00 Hydralazine HCl (Apresoline) 10 mg Q4H PRN IV ELEVATED BLOOD PRESSURE Last administered on 08/04/17 00:27; Admin Dose 10 MG; Start 08/03/17 at 11:51 Ondansetron HCl 4 mg 4 mg Q4H PRN IV NAUSEA AND/OR VOMITING Last administered on 08/10/17 14:27; Admin Dose 4 MG; Start 08/03/17 at 15:00 Dextrose/Sodium Chloride (D5-1/2ns) 1,000 ml @ 50 mls/hr Q20H IV Last administered on 08/12/17 05:47; Admin Dose 50 MLS/HR; Start 08/04/17 at 09:00 Lorazepam (Ativan) 0.5 mg Q6H PRN GTB ANXIETY Last administered on 08/06/17 10:25; Admin Dose 0.5 MG; Start 08/04/17 at 14:30 IV Flush (NS 10 ml) 10 ml PRN PRN IV IV PROTOCOL; Start 08/05/17 at 17:30 Metoclopramide HCl (Reglan) 5 mg Q6 IV Last administered on 08/12/17 13:26; Admin Dose 5 MG; Start 08/06/17 at 00:00 Linezolid (Zyvox) 600 mg BID GTB Last administered on 08/12/17 09:16; Admin Dose 600 MG; Start 08/08/17 at 14:00 Insulin Detemir (Levemir) 10 unit Q12H SC Last administered on 08/12/17 13:28 ; Admin Dose 10 UNIT; Start 08/09/17 at 12:00 Insulin Aspart (Adult SC Insulin - Mild Algorithm)... Q4 SC Last administered on 08/12/17 13:28; Admin Dose 1 UNIT; Start 08/10/17 at 13:00 Meropenem/Sodium Chloride (Merrem 500mg/50 ml(Pmx)) 50 ml @ 200 mls/hr Q12 IVPB Last administered on 08/12/17 10:18; Admin Dose 200 MLS/HR; Start 08/10 at 21:00 Pregabalin (Lyrica) 75 mg BID GTB Last administered on 08/12/17 10:20; Admin Dose 75 MG; Start 08/11/17 at 21:30 Assessment/Plan Chief Complaint/Hosp Course SUBJECTIVE: No events overnight. The patient is alert, denies pain, looks comfortable, no fevers. ANTIMICROBIALS: 1. IV meropenem. 2. Zyvox. INDWELLINGS: Trach, PEG, Salazar, PICC line. ALLERGIES: PENICILLIN. PHYSICAL EXAMINATION: GENERAL: This is a chronically ill-appearing, elderly woman who is awake, in no distress. HEENT: Head atraumatic, normocephalic. Sclerae anicteric. Buccal mucosa dry. NECK: Supple. CHEST: Rise symmetrical. Breath sounds diminished to bases. HEART: S1, S2. ABDOMEN: Soft. Bowel tones present. ASSESSMENT: 1. Resolving sepsis. 2. Acute on chronic respiratory failure secondary to aspiration pneumonia. 3. Multidrug resistant urinary tract infection, urine culture on admission grew Pseudomonas, Klebsiella extended-spectrum beta-lactamase and Escherichia coli. 4. 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 5. Acute kidney injury. 6. History of cerebrovascular accident. 7. ALLERGY TO PENICILLIN. PLAN: The patient remains stable, naina Tyson, torrie Aguilar, f/u pulmonary/ vascular/podiatry rec-s. DW staff Problems: GABRIELA CHARLES NP Aug 12, 2017 14:29
[2017-08-12] MEDS: COLLAGENASE 30 GM TUBE TOP SCH (15:25)
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
[2017-08-12] MEDS: EPOETIN 10000 UNITS/ML VIAL (ONCOLOGY) SC SCH (17:27)
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
[2017-08-12] MEDS ORDERED: MEROPENEM 500MG/50 ML (PMX) 50 ML IVPB SCH (21:00)
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
== END 2017-08-12 19:39 | DRG 811 ==
LOC: E/R 14:34 → TEL 17:22 → ICU 08-06 17:05 → TEL 08-11 08:16
PROVIDERS: ADMIT Internal Medicine; ATTEND Internal Medicine
PROC: 5A1955Z Respiratory Ventilation, Greater than 96 Consecutive Hours (ICD-10-PCS; 2017-07-28)
PROC: 30243N1 Transfusion of Nonautologous Red Blood Cells into Central Vein, Percutaneous Approach (ICD-10-PCS; 2017-07-28)
PROC: 0DJD8ZZ Inspection of Lower Intestinal Tract, Via Natural or Artificial Opening Endoscopic (ICD-10-PCS; 2017-07-31)
PROC: 02HV33Z Insertion of Infusion Device into Superior Vena Cava, Percutaneous Approach (ICD-10-PCS; 2017-08-05)
PROC: 4A033R1 Measurement of Arterial Saturation, Peripheral, Percutaneous Approach (ICD-10-PCS; 2017-08-06)
PROC: B41GYZZ Fluoroscopy of Left Lower Extremity Arteries using Other Contrast (ICD-10-PCS; principal; 2017-08-06 13:30)
DX: D50.0 Iron deficiency anemia secondary to blood loss (chronic) (principal); K31.811 Angiodysplasia of stomach and duodenum with bleeding; N17.0 Acute kidney failure with tubular necrosis; J96.20 Acute and chronic respiratory failure, unspecified whether with hypoxia or hypercapnia; J69.0 Pneumonitis due to inhalation of food and vomit; A41.9 Sepsis, unspecified organism; Z99.11 Dependence on respirator [ventilator] status; I70.263 Atherosclerosis of native arteries of extremities with gangrene, bilateral legs; E11.52 Type 2 diabetes mellitus with diabetic peripheral angiopathy with gangrene; I70.92 Chronic total occlusion of artery of the extremities; B35.1 Tinea unguium; E87.0 Hyperosmolality and hypernatremia; N39.0 Urinary tract infection, site not specified; Z93.0 Tracheostomy status; Z93.1 Gastrostomy status; E78.5 Hyperlipidemia, unspecified; D63.8 Anemia in other chronic diseases classified elsewhere; T24.092 Burn of unspecified degree of multiple sites of left lower limb, except ankle and foot; T24.0 Burn of unspecified degree of lower limb, except ankle and foot; E11.42 Type 2 diabetes mellitus with diabetic polyneuropathy; Z86.73 Personal history of transient ischemic attack (TIA), and cerebral infarction without residual deficits; I10 Essential (primary) hypertension; R13.10 Dysphagia, unspecified; Z74.01 Bed confinement status; B96.5 Pseudomonas (aeruginosa) (mallei) (pseudomallei) as the cause of diseases classified elsewhere; B96.1 Klebsiella pneumoniae [K. pneumoniae] as the cause of diseases classified elsewhere; Z16.12 Extended spectrum beta lactamase (ESBL) resistance; Z89.421 Acquired absence of other right toe(s); Z79.4 Long term (current) use of insulin; Z89.431 Acquired absence of right foot; Z88.0 Allergy status to penicillin; Z88.6 Allergy status to analgesic agent; X19.XXXD Contact with other heat and hot substances, subsequent encounter
CPT/HCPCS: 36415; 36430; 36569; 36600; 71010; 75630; 76775; 76937; 80048; 80053; 80202; 82270; 82607; 82728; 82746; 82803; 82962; 83605; 83735; 83880; 85025; 85045; 85610; 85730; 86850; 86900; 86901; 86920; 87040; 87081; 87086; 92610; 93005; 93306; 93922; 94003; 94640; 94664; J0885; J1940; C1760; C1769; C1894; J0360; J1170; J1644; J1815; J2001; J2185; J2250; J2405; J2543; J2765; J3010; J3370; J3480; J7030; J7042; J7050; P9016